=== PATIENT | male | born 1940 | race African-American/Black ===

== ENCOUNTER 2016-12-03 08:12 | Inpatient (IN) | payer OTHER ==
[2016-12-03 10:35] VITALS: BMI 29.7
--- NOTE | 2016-12-03 12:17 | HP ---
[facility] Re[facility] Assess/Revision - Admission History Admitted to Rehab from: [facility] Date of Admission to Rehab: 12/03/16 - Vital signs Vital Signs: Vital Signs Period Temp Pulse Resp BP Sys/Tao Pulse Ox Last 24 Hr 73 20 162/78 - Findings Detox History & Physical reviewed: Yes Concur with findings: Yes Comments/Additional Findings: FOR REHAB PROTOCOL
[2016-12-03] MEDS ORDERED: ACETAMINOPHEN 325 MG TABLET (FP) PO PRN (12:19)
[2016-12-03] MEDS ORDERED: MENTHOL/PHENOL 1 EACH UD MM PRN (12:19)
[2016-12-03] MEDS ORDERED: LOPERAMIDE HCL 2 MG CAPSULE PO PRN (12:19)
[2016-12-03] MEDS ORDERED: diphenhydrAMINE HCL 50 MG CAPSULE PO PRN (12:19)
[2016-12-03] MEDS ORDERED: MAG HYDROX/AL HYDROX/SIMETH 30 ML UNIT-DOSE CUP PO PRN (12:19)
[2016-12-03] MEDS ORDERED: IBUPROFEN 400 MG TABLET (FP) PO PRN (12:19)
[2016-12-03] MEDS ORDERED: P-EPHED 60MG/TRIPROLIDI 2.5MG TABLET PO PRN (12:19)
[2016-12-03] MEDS ORDERED: MAGNESIUM HYDROX 2400MG/30ML ORAL SUSPENSION 30 ML CUP PO PRN (12:19)
[2016-12-03] MEDS ORDERED: MAGNESIUM CITRATE 300 ML BOTTLE PO PRN (12:19)
[2016-12-03] MEDS ORDERED: hydrOXYzine PAMOATE 50 MG CAPSULE (FP) PO PRN (12:19)
--- NOTE | 2016-12-03 15:36 | HP ---
Psychiatrist Admission - Data Date of interview: 12/03/16 Admission source: 3N Identifying data: This is one of the several admisions 5N for inpatient Rehabilitation Center for this 76 year old single black male residing alone in his [place] apartment and supported by SSD/SSI. Medical History: Reports history of HTN,S/P craniotomy with 32 day admission to [facility] in 2010 (work related injury- pipe fell causing head trauma). Psychiatric History: Patient denies history of psychiatric treatment. Physical/Sexual Abuse/Trauma History: Patient denies history of sexual, physical and verbal abuse. Vital Signs: Vital Signs - 24 hr 12/03/16 10:30 Pulse Rate 73 Respiratory 20 Rate Blood Pressure 162/78 Allergies/Adverse Reactions: Allergies Allergy/AdvReac Type Severity Reaction Status Date / Time No Known Allergies Allergy Verified 12/03/16 10:28 Date of last physical exam: 11/30/16 Concur with the findings of this exam: Yes - Substance Abuse/Tx History Hx Alcohol Use: Yes (bacardi/rum every other day) Hx Substance Use: No Substance Use Type: None Hx Substance Use Treatment: Yes (several [facility] rehab[facility] - Admission Criteria Previous failed treatment: Yes Poor recovery environment: Yes Comorbidities: No Lacks judgement: Yes Mental Status Exam - Mental Status Exam Alert and Oriented to: Time, Place, Person Cognitive Function: Good Patient Appearance: Well Groomed Mood: Hopeful Affect: Appropriate, Mood Congruent Patient Behavior: Appropriate, Cooperative Speech Pattern: Clear, Appropriate Voice Loudness: Normal Thought Process: Intact, Goal Oriented Thought Disorder: Not Present Hallucinations: Denies Suicidal Ideation: Denies Homicidal Ideation: Denies Insight/Judgement: Fair Sleep: Well Appetite: Good Muscle strength/Tone: Normal Gait/Station: Normal Psychiatric Findings - Problem List ([place] 1, 2,3) (1) Alcohol dependence Current Visit: Yes Status: Acute - Initial Treatment Plan Initial Treatment Plan: Will monitor progress as needed.
[2016-12-03] MEDS: THIAMINE HCL 100 MG TABLET (FP) PO SCH (21:17)
[2016-12-04] MEDS: PRENATAL VITAMINS W/ FOLIC ACID TABLET (FP) PO SCH (10:07)
[2016-12-04 10:23] LABS: URINE APPEARANCE CLEAR; URINE BILIRUBIN NEGATIVE (NEGATIVE); URINE BLOOD NEGATIVE (NEGATIVE); URINE COLOR LTYELLOW; URINE GLUCOSE (UA) NEGATIVE (NEGATIVE); URINE KETONE NEGATIVE (NEGATIVE); URINE LEUK ESTERASE NEGATIVE (NEGATIVE); URINE NITRITE NEGATIVE (NEGATIVE); URINE PROTEIN NEGATIVE (NEGATIVE); URINE UROBILINOGEN NEGATIVE E.U./dl (0.2-1.0)
[2016-12-04 13:16] LABS: HIV 1 & 2 AB NEGATIVE; HIV 1 AGp24 NEGATIVE
[2016-12-04] MEDS: THIAMINE HCL 100 MG TABLET (FP) PO SCH (21:31)
[2016-12-05] MEDS: guaiFENesin/D-METHORPHAN HB 10 ML UNIT-DOSE CUPS PO PRN ×2 (06:19→21:30)
[2016-12-05] MEDS: PRENATAL VITAMINS W/ FOLIC ACID TABLET (FP) PO SCH (10:10)
[2016-12-05] MEDS: THIAMINE HCL 100 MG TABLET (FP) PO SCH (21:28)
[2016-12-06] MEDS: guaiFENesin/D-METHORPHAN HB 10 ML UNIT-DOSE CUPS PO PRN ×2 (06:03→22:49)
[2016-12-06] MEDS: PRENATAL VITAMINS W/ FOLIC ACID TABLET (FP) PO SCH (10:07)
[2016-12-06] MEDS: THIAMINE HCL 100 MG TABLET (FP) PO SCH (22:46)
[2016-12-07] MEDS: PRENATAL VITAMINS W/ FOLIC ACID TABLET (FP) PO SCH (09:23)
[2016-12-07] MEDS: THIAMINE HCL 100 MG TABLET (FP) PO SCH (21:22)
[2016-12-08] MEDS: PRENATAL VITAMINS W/ FOLIC ACID TABLET (FP) PO SCH (09:22)
[2016-12-08] MEDS: THIAMINE HCL 100 MG TABLET (FP) PO SCH (21:55)
[2016-12-08] MEDS: guaiFENesin/D-METHORPHAN HB 10 ML UNIT-DOSE CUPS PO PRN (21:57)
[2016-12-09] MEDS: PRENATAL VITAMINS W/ FOLIC ACID TABLET (FP) PO SCH (10:27)
[2016-12-09] MEDS: THIAMINE HCL 100 MG TABLET (FP) PO SCH (22:18)
[2016-12-10] MEDS: PRENATAL VITAMINS W/ FOLIC ACID TABLET (FP) PO SCH (09:25)
--- NOTE | 2016-12-10 11:42 | PN ---
[facility] Progress Note Note: hx of htn used to take atenolol 25 mgs po daily asymptomatic will start on atenolol 25 mgs po daily,bp monitoring
[2016-12-10] MEDS: ATENOLOL 25 MG TABLET (FP) PO SCH (13:01)
[2016-12-10] MEDS: THIAMINE HCL 100 MG TABLET (FP) PO SCH (21:38)
[2016-12-11] MEDS: PRENATAL VITAMINS W/ FOLIC ACID TABLET (FP) PO SCH (10:10)
[2016-12-11] MEDS: ATENOLOL 25 MG TABLET (FP) PO SCH (10:10)
[2016-12-11] MEDS: THIAMINE HCL 100 MG TABLET (FP) PO SCH (21:52)
[2016-12-12] MEDS: PRENATAL VITAMINS W/ FOLIC ACID TABLET (FP) PO SCH (10:07)
[2016-12-12] MEDS: ATENOLOL 25 MG TABLET (FP) PO SCH (10:07)
[2016-12-12] MEDS: THIAMINE HCL 100 MG TABLET (FP) PO SCH (21:47)
[2016-12-13] MEDS: ATENOLOL 25 MG TABLET (FP) PO SCH (09:50)
[2016-12-13] MEDS: PRENATAL VITAMINS W/ FOLIC ACID TABLET (FP) PO SCH (09:50)
[2016-12-13] MEDS: THIAMINE HCL 100 MG TABLET (FP) PO SCH (21:58)
[2016-12-14] MEDS: PRENATAL VITAMINS W/ FOLIC ACID TABLET (FP) PO SCH (09:56)
[2016-12-14] MEDS: ATENOLOL 25 MG TABLET (FP) PO SCH (09:56)
[2016-12-14] MEDS: guaiFENesin/D-METHORPHAN HB 10 ML UNIT-DOSE CUPS PO PRN (09:58)
[2016-12-14] MEDS: THIAMINE HCL 100 MG TABLET (FP) PO SCH (21:51)
[2016-12-15] MEDS: guaiFENesin/D-METHORPHAN HB 10 ML UNIT-DOSE CUPS PO PRN (06:12)
[2016-12-15] MEDS: ATENOLOL 25 MG TABLET (FP) PO SCH (09:41)
[2016-12-15] MEDS: PRENATAL VITAMINS W/ FOLIC ACID TABLET (FP) PO SCH (09:41)
[2016-12-15] MEDS: THIAMINE HCL 100 MG TABLET (FP) PO SCH (21:40)
[2016-12-16] MEDS: PRENATAL VITAMINS W/ FOLIC ACID TABLET (FP) PO SCH (10:01)
[2016-12-16] MEDS: ATENOLOL 25 MG TABLET (FP) PO SCH (10:01)
[2016-12-16] MEDS: THIAMINE HCL 100 MG TABLET (FP) PO SCH (21:35)
[2016-12-17] MEDS: ATENOLOL 25 MG TABLET (FP) PO SCH (10:11)
[2016-12-17] MEDS: PRENATAL VITAMINS W/ FOLIC ACID TABLET (FP) PO SCH (10:11)
[2016-12-17] MEDS: THIAMINE HCL 100 MG TABLET (FP) PO SCH (21:32)
[2016-12-18] MEDS: PRENATAL VITAMINS W/ FOLIC ACID TABLET (FP) PO SCH (10:13)
[2016-12-18] MEDS: ATENOLOL 25 MG TABLET (FP) PO SCH (10:13)
[2016-12-18] MEDS: THIAMINE HCL 100 MG TABLET (FP) PO SCH (21:59)
[2016-12-18] MEDS: LISINOPRIL 10 MG TABLET (FP) PO SCH (22:39)
[2016-12-18] MEDS: guaiFENesin/D-METHORPHAN HB 10 ML UNIT-DOSE CUPS PO PRN (22:39)
--- NOTE | 2016-12-19 08:00 | PN ---
[facility] Progress Note Note: INFORMED BY RN FOR ELEVATED B/P LAST NIGHT; CLIENT ASYMPTOMATIC PT NOTED ON AMLODIPINE 10 MG DAILY AND LISINOPRIL 10 MG BID WHILE IN DETOX ORDERED 11/29/16 WILL DC ATENOLOL AND C/W RECENT REGIMEN CONT B/P MONITORING Vital Signs - 24 hr 12/18/16 12/18/16 12/19/16 10:00 21:10 00:30 Temperature 97.9 F Pulse Rate 56 L 50 L Respiratory 20 18 Rate Blood Pressure 159/82 175/73 12/19/16 12/19/16 03:30 07:05 Temperature 98.1 F Pulse Rate 54 L Respiratory 18 20 Rate Blood Pressure 129/65
[2016-12-19] MEDS: amLODIPine BESYLATE 10 MG TABLET (FP) PO SCH (10:18)
[2016-12-19] MEDS: LISINOPRIL 10 MG TABLET (FP) PO SCH ×2 (10:18→22:04)
[2016-12-19] MEDS: PRENATAL VITAMINS W/ FOLIC ACID TABLET (FP) PO SCH (10:18)
[2016-12-19] MEDS: THIAMINE HCL 100 MG TABLET (FP) PO SCH (22:04)
[2016-12-20 07:16] VITALS: TEMP 97
[2016-12-20 07:17] VITALS: BP 161/81; PULSE 60
--- NOTE | 2016-12-20 10:12 | PN ---
Psychiatric Progress Note Vital Signs: Vital Signs Period Temp Pulse Resp BP Sys/Tao Pulse Ox Last 24 Hr 97 F 60-63 18-20 161-166/78-81 Date of Session: 12/20/16 Chief Complaint:: discharge visit HPI: Patient has addressed alcohol dependence. ROS: HTN, has been managed medically. Current Medications: Active Medications Generic Name Dose Route Start Last Admin Trade Name Freq PRN Reason Stop Dose Admin Acetaminophen 650 mg 12/03/16 12:19 Tylenol - PO Q4H PRN FEVER OR PAIN Al Hydroxide/Mg Hydroxide 30 ml 12/03/16 12:19 Mylanta Oral Suspension - PO Q6H PRN DYSPEPSIA Amlodipine Besylate 10 mg 12/19/16 10:00 12/19/16 10:18 Norvasc - PO 10 mg DAILY FELIX Administration Diphenhydramine HCl 50 mg 12/03/16 12:19 Benadryl - PO HSMR1 PRN FOR ITCHING Eucalyptus/Menthol/Phenol/Sorbitol 1 each 12/03/16 12:19 Cepastat Lozenge - MM Q4H PRN SORE THROAT Guaifenesin 10 ml 12/03/16 12:19 12/18/16 22:39 Robitussin Dm - PO 10 ml Q6H PRN Administration COUGH Hydroxyzine Pamoate 50 mg 12/03/16 12:19 Vistaril - PO Q4H PRN AGITATION Ibuprofen 400 mg 12/03/16 12:19 Motrin - PO Q6H PRN PAIN Lisinopril 10 mg 12/18/16 22:30 12/19/16 22:04 Prinivil PO 10 mg BID FELIX Administration Loperamide HCl 4 mg 12/03/16 12:19 Imodium - PO Q6H PRN DIARRHEA Magnesium Hydroxide 30 ml 12/03/16 12:19 Milk Of Magnesia - PO DAILY PRN CONSTIPATION Multivit/Folic Acid/Iron 1 tab 12/04/16 10:00 12/19/16 10:18 Vitamins (Sjr) - PO 1 tab DAILY FELIX Administration Pseudoephedrine/Triprolidine 1 combo 12/03/16 12:19 Actifed - PO TID PRN NASAL CONGESTION Thiamine HCl 100 mg 12/03/16 22:00 12/19/16 22:04 Vitamin B1 - PO 100 mg HS FELIX Administration Current Side Effect: No Lab tests ordered: No Lab tests reviewed: Yes Provider note:: Patient has completed today his treatment and met his identified goals, will continue to address his issues at [facility], patient gained insights into his addiction and motivated to continue maintain abstinence. Utilization of supports and imrpoving coping skills discussed with the patient. Patient is stable for discharge today. Total face to face time:: 25 Mental Status Exam - Mental Status Exam Alert and Oriented to: Time, Place, Person Cognitive Function: Good Patient Appearance: Well Groomed Mood: Hopeful Affect: Appropriate, Mood Congruent Patient Behavior: Appropriate, Cooperative Speech Pattern: Appropriate Voice Loudness: Normal Thought Process: Intact, Goal Oriented Thought Disorder: Not Present Hallucinations: Denies Suicidal Ideation: Denies Homicidal Ideation: Denies Insight/Judgement: Fair Sleep: Well Appetite: Good Muscle strength/Tone: Normal Gait/Station: Normal Psychiatric Treatment Plan - Problem List (1) Alcohol dependence Current Visit: Yes
[2016-12-20] MEDS: LISINOPRIL 10 MG TABLET (FP) PO SCH (10:34)
[2016-12-20] MEDS: amLODIPine BESYLATE 10 MG TABLET (FP) PO SCH (10:34)
[2016-12-20] MEDS: PRENATAL VITAMINS W/ FOLIC ACID TABLET (FP) PO SCH (10:34)
== END 2016-12-20 11:10 | disposition home or self-care (01) | DRG 895 ==
LOC: YASAS 08:12 → Y5N 12:21
PROVIDERS: ADMIT Psychiatry & Neurology Psychiatry; ATTEND Psychiatry & Neurology Psychiatry
PROC: HZ42ZZZ Group Counseling for Substance Abuse Treatment, Cognitive-Behavioral (ICD-10-PCS; principal; 2016-12-03)
DX: F10.20 Alcohol dependence, uncomplicated (principal); I10 Essential (primary) hypertension
CPT/HCPCS: 36415; 81003; 87389

== ENCOUNTER 2017-09-03 15:23 | Inpatient (IN) | payer OTHER ==
[2017-09-03 15:31] VITALS: BMI 29.9
[2017-09-03] MEDS ORDERED: MAG HYDROX/AL HYDROX/SIMETH 30 ML UNIT-DOSE CUP PO PRN (19:17)
[2017-09-03] MEDS ORDERED: MAGNESIUM HYDROX 2400MG/30ML ORAL SUSPENSION 30 ML CUP PO PRN (19:17)
[2017-09-03] MEDS ORDERED: MENTHOL/PHENOL 1 EACH UD MM PRN (19:17)
[2017-09-03] MEDS ORDERED: IBUPROFEN 400 MG TABLET (FP) PO PRN (19:17)
[2017-09-03] MEDS ORDERED: hydrOXYzine PAMOATE 50 MG CAPSULE (FP) PO PRN (19:17)
[2017-09-03] MEDS ORDERED: MAGNESIUM CITRATE 300 ML BOTTLE PO PRN (19:17)
[2017-09-03] MEDS ORDERED: chlordiazePOXIDE HCL 25 MG CAPSULE PO PRN (19:17)
[2017-09-03] MEDS ORDERED: LOPERAMIDE HCL 2 MG CAPSULE PO PRN (19:17)
[2017-09-03] MEDS ORDERED: P-EPHED 60MG/TRIPROLIDI 2.5MG TABLET PO PRN (19:17)
[2017-09-03] MEDS ORDERED: ACETAMINOPHEN 325 MG TABLET (FP) PO PRN (19:17)
--- NOTE | 2017-09-03 19:25 | HP ---
CIWA Score - CIWA Score Nausea/Vomitin Muscle Tremors: 3 Anxiety: 4-Mod. Anxious/Guarded Agitation: 3 Paroxysmal Sweats: 3 Orientation: 0-Oriented Tacttile Disturbances: 0-None Auditory Disturbances: 0-None Visual Disturbances: 0-None Headache: 0-None Present CIWA-Ar Total Score: 15 Admission ROS [facility] - HPI Chief Complaint: Withdrawal sx. Allergies/Adverse Reactions: Allergies Allergy/AdvReac Type Severity Reaction Status Date / Time No Known Allergies Allergy Verified 12/03/16 10:28 History of Present Illness: 77 y/o man with a long hx. of alcoholism is admitted for detox. Pt. has been in previous detox,denies significant sobriety. Exam Limitations: No Limitations - Ebola screening Have you traveled outside of the country in the last 21 days: No Have you had contact with anyone from an Ebola affected area: No Have you been sick,other than usual withdrawal symptoms: No Do you have a fever: No - Review of Systems Constitutional: Diaphoresis EENT: reports: No Symptoms Reported Respiratory: reports: No Symptoms reported Cardiac: reports: No Symptoms Reported GI: reports: Nausea, Abdominal cramping : reports: Frequency Musculoskeletal: reports: No Symptoms Reported Integumentary: reports: Sweating Neuro: reports: Tremors Endocrine: reports: No Symptoms Reported Hematology: reports: No Symptoms Reported Psychiatric: reports: No Sypmtoms Reported Other Systems: Reviewed and Negative Patient History - Patient Medical History Hx Anemia: No Hx Asthma: No Hx Chronic Obstructive Pulmonary Disease (COPD): No Hx Cancer: No Hx Cardiac Disorders: No Hx Congestive Heart Failure: No Hx Hypertension: Yes Hx Hypercholesterolemia: No Hx Pacemaker: No HX Cerebrovascular Accident: No Hx Seizures: No Hx Dementia: No Hx Diabetes: No Hx Gastrointestinal Disorders: No Hx Liver Disease: No Hx Genitourinary Disorders: Yes (Enlarged prostate) Hx Sexually Transmitted Disorders: No Hx Renal Disease (ESRD): No Hx Thyroid Disease: No Hx Human Immunodeficiency Virus (HIV): No Hx Hepatitis C: No Hx Depression: No Hx Suicide Attempt: No Hx Bipolar Disorder: No Hx Schizophrenia: No - Patient Surgical History Past Surgical History: Yes Hx Neurologic Surgery: Yes (S/P HEAD TRAUMA ADMIITED TO [place] X 32D ) Hx Cataract Extraction: No Hx Cardiac Surgery: No Hx Lung Surgery: No Hx Breast Surgery: No Hx Breast Biopsy: No Hx Abdominal Surgery: No Hx Appendectomy: No Hx Cholecystectomy: No Hx Genitourinary Surgery: No Hx Orthopedic Surgery: No Other Surgical History: ,tonsilectomy 25yrs,SURGERY OF TEAR DUCT RIGHT 40 YEARS AGO Anesthesia Reaction: No - PPD History Previous Implant?: Yes Documented Results: Positive w/o proof Implanted On Prior [facility] Admission?: No PPD to be Administered?: No - Smoking Cessation Smoking history: Never smoked Have you smoked in the past 12 months: No Aproximately how many cigarettes per day: 0 Cigars Per Day: 0 Hx Chewing Tobacco Use: No Initiated information on smoking cessation: No - Substance & Tx. History Hx Alcohol Use: Yes Hx Substance Use: No Substance Use Type: Alcohol Hx Substance Use Treatment: Yes (Detox) - Substances Abused Alcohol Route: Oral Frequency: Daily Amount used: Beer 1(6pack) Age of first use: 19 Date of Last Use: 09/03/17 Family Disease History - Family Disease History Family Disease History: Diabetes: Mother (), Other: Father (ALCOHOL, ) Admission Physical Exam [facility] - Vital Signs Vital Signs: Vital Signs - 24 hr 09/03/17 15:30 Temperature 95.9 F L Pulse Rate 78 Respiratory 18 Rate Blood Pressure 160/93 - Physical General Appearance: Yes: Alcohol on Breath, Tremorous, Irritable, Sweating, Anxious HEENTM: Yes: Within Normal Limits Respiratory: Yes: Chest Non-Tender, Lungs Clear, Normal Breath Sounds Neck: Yes: Supple Breast: Yes: Breast Exam Deferred Cardiology: Yes: Regular Rhythm, Regular Rate, S1, S2 Abdominal: Yes: Normal Bowel Sounds, Non Tender, Soft Genitourinary: Yes: Within Normal Limits Back: Yes: Within Normal Limits Musculoskeletal: Yes: Within Normal Limits Extremities: Yes: Tremors Neurological: Yes: Fully Oriented, Alert Integumentary: Yes: Diaphoresis Lymphatic: Yes: Within Normal Limits - Diagnostic (1) Alcohol dependence with uncomplicated withdrawal Current Visit: Yes Status: Acute (2) Positive PPD Current Visit: Yes Status: Acute (3) Essential hypertension Current Visit: Yes Status: Chronic Cleared for Admission [facility] - Detox or Rehab [facility] Level of Care: Medically Managed Detox Regimen/Protocol: Librium [facility] Breath Alcohol Content Breath Alcohol Content: 0.025 Urine Drug Screen - Results Drug Screen Negative: Yes
[2017-09-03] MEDS ORDERED: chlordiazePOXIDE HCL 25 MG CAPSULE PO ONE (21:00)
[2017-09-03] MEDS: LISINOPRIL 10 MG TABLET (FP) PO SCH (23:17)
[2017-09-03] MEDS: THIAMINE HCL 100 MG TABLET (FP) PO SCH (23:17)
[2017-09-03] MEDS: chlordiazePOXIDE HCL 25 MG CAPSULE PO SCH (23:17)
[2017-09-03] MEDS: amLODIPine BESYLATE 10 MG TABLET (FP) PO SCH (23:18)
[2017-09-03] MEDS: METOPROLOL TARTRATE 25 MG TABLET (FP) PO SCH (23:18)
[2017-09-04] MEDS: chlordiazePOXIDE HCL 25 MG CAPSULE PO SCH ×4 (05:58→22:49)
[2017-09-04 10:07] LABS: ALBUMIN 3.2 g/dl (3.4-5.0); ANION GAP 9 (8-16); CALCIUM 8.6 mg/dL (8.5-10.1); CO2 27 mmol/L (21-32); GLUCOSE,RANDOM 91 mg/dL (74-106)
[2017-09-04 10:10] LABS: ALK PHOS 75 U/L (45-117); BILIRUBIN,TOTAL 0.5 mg/dL (0.2-1.0); CREATININE 1.4 mg/dL (0.7-1.3); SGOT/AST 21 U/L (15-37); SGPT/ALT 19 U/L (12-78); TOT PROT 6.6 g/dl (6.4-8.2)
[2017-09-04 10:14] LABS: MCH 28.6 pg (25.7-33.7); MCHC 33.3 g/dl (32.0-35.9); MEAN CELL VOLUME 86.1 fl (80-96); MEAN PLT VOLUME 8.4 fl (7.5-11.1); PLATELET COUNT 170 K/MM3 (134-434); RDW 13.9 % (11.9-15.9); WHITE BLOOD COUNT 6.8 K/mm3 (4.0-10.0)
[2017-09-04] MEDS: METOPROLOL TARTRATE 25 MG TABLET (FP) PO SCH ×2 (10:52→22:49)
[2017-09-04] MEDS: PRENATAL VITAMINS W/ FOLIC ACID TABLET (FP) PO SCH (10:52)
[2017-09-04] MEDS: LISINOPRIL 10 MG TABLET (FP) PO SCH ×2 (10:54→22:49)
[2017-09-04] MEDS: amLODIPine BESYLATE 10 MG TABLET (FP) PO SCH (10:55)
--- NOTE | 2017-09-04 13:09 | PN ---
[facility] CIWA - CIWA Score Nausea/Vomitin-Mild Nausea/No Vomiting Muscle Tremors: 3 Anxiety: 3 Agitation: 3 Paroxysmal Sweats: 1-Minimal Palms Moist Orientation: 0-Oriented Tacttile Disturbances: 0-None Auditory Disturbances: 0-None Visual Disturbances: 0-None Headache: 0-None Present CIWA-Ar Total Score: 11 S Progress Note (SOAP) Subjective: tremor anxiety agitation sweat Objective: 09/04/17 13:08 Vital Signs Temperature 95.5 F L 09/04/17 10:31 Pulse Rate 66 09/04/17 10:31 Respiratory Rate 18 09/04/17 10:31 Blood Pressure 136/55 09/04/17 10:31 O2 Sat by Pulse Oximetry (%) Laboratory Last Values WBC 6.8 K/mm3 (4.0-10.0) 09/04/17 08:00 RBC 4.41 M/mm3 (4.00-5.60) 09/04/17 08:00 Hgb 12.6 GM/dL (11.7-16.9) 09/04/17 08:00 Hct 38.0 % (35.4-49) 09/04/17 08:00 MCV 86.1 fl (80-96) 09/04/17 08:00 MCH 28.6 pg (25.7-33.7) 09/04/17 08:00 MCHC 33.3 g/dl (32.0-35.9) 09/04/17 08:00 RDW 13.9 % (11.9-15.9) 09/04/17 08:00 Plt Count 170 K/MM3 (134-434) 09/04/17 08:00 MPV 8.4 fl (7.5-11.1) 09/04/17 08:00 Sodium 141 mmol/L (136-145) 09/04/17 08:00 Potassium 4.0 mmol/L (3.5-5.1) 09/04/17 08:00 Chloride 105 mmol/L (98-107) 09/04/17 08:00 Carbon Dioxide 27 mmol/L (21-32) 09/04/17 08:00 Anion Gap 9 (8-16) 09/04/17 08:00 BUN 19 mg/dL (7-18) H 09/04/17 08:00 Creatinine 1.4 mg/dL (0.7-1.3) H 09/04/17 08:00 Creat Clearance w eGFR 49.27 (>60) 09/04/17 08:00 Random Glucose 91 mg/dL (74-106) 09/04/17 08:00 Calcium 8.6 mg/dL (8.5-10.1) 09/04/17 08:00 Total Bilirubin 0.5 mg/dL (0.2-1.0) D 09/04/17 08:00 AST 21 U/L (15-37) D 09/04/17 08:00 ALT 19 U/L (12-78) D 09/04/17 08:00 Alkaline Phosphatase 75 U/L (45-117) 09/04/17 08:00 Total Protein 6.6 g/dl (6.4-8.2) 09/04/17 08:00 Albumin 3.2 g/dl (3.4-5.0) L 09/04/17 08:00 RPR Titer Nonreactive (NONREACTIVE) 09/04/17 08:00 lab noted Assessment: 09/04/17 13:09 withdrawal sx Plan: continue detox
[2017-09-04] MEDS: guaiFENesin/D-METHORPHAN HB 10 ML UNIT-DOSE CUPS PO PRN (18:31)
[2017-09-04] MEDS: THIAMINE HCL 100 MG TABLET (FP) PO SCH (22:49)
[2017-09-05] MEDS: guaiFENesin/D-METHORPHAN HB 10 ML UNIT-DOSE CUPS PO PRN ×3 (01:18→17:34)
[2017-09-05] MEDS: chlordiazePOXIDE HCL 25 MG CAPSULE PO SCH ×3 (05:33→17:33)
[2017-09-05] MEDS: amLODIPine BESYLATE 10 MG TABLET (FP) PO SCH (10:43)
[2017-09-05] MEDS: PRENATAL VITAMINS W/ FOLIC ACID TABLET (FP) PO SCH (10:43)
[2017-09-05] MEDS: METOPROLOL TARTRATE 25 MG TABLET (FP) PO SCH ×2 (10:43→22:19)
[2017-09-05] MEDS: LISINOPRIL 10 MG TABLET (FP) PO SCH ×2 (10:43→22:19)
--- NOTE | 2017-09-05 11:50 | PN ---
S CIWA - CIWA Score Nausea/Vomitin-No Nausea/No Vomiting Muscle Tremors: 4-Moderate,w/Arms Extend Anxiety: 3 Agitation: 3 Paroxysmal Sweats: 3 Orientation: 0-Oriented Tacttile Disturbances: 0-None Auditory Disturbances: 0-None Visual Disturbances: 0-None Headache: 0-None Present CIWA-Ar Total Score: 13 BHS Progress Note (SOAP) Subjective: cough sweats shakes interrupted sleep Objective: 09/05/17 11:49 Vital Signs Temperature 97 F L 09/05/17 10:00 Pulse Rate 112 H 09/05/17 10:00 Respiratory Rate 18 09/05/17 10:00 Blood Pressure 161/80 09/05/17 10:00 O2 Sat by Pulse Oximetry (%) Laboratory Tests 09/04/17 09/04/17 09/04/17 08:00 08:00 08:00 WBC 6.8 RBC 4.41 Hgb 12.6 Hct 38.0 MCV 86.1 MCH 28.6 MCHC 33.3 RDW 13.9 Plt Count 170 MPV 8.4 Sodium 141 Potassium 4.0 Chloride 105 Carbon Dioxide 27 Anion Gap 9 BUN 19 H Creatinine 1.4 H Creat Clearance w eGFR 49.27 Random Glucose 91 Calcium 8.6 Total Bilirubin 0.5 D AST 21 D ALT 19 D Alkaline Phosphatase 75 Total Protein 6.6 Albumin 3.2 L RPR Titer Nonreactive increase fluids aaox3 ambulating no acute distress Assessment: 09/05/17 11:50 withdrawal sx Plan: continue detox increase fluids robutussin for cough
--- NOTE | 2017-09-05 15:15 | EKG ---
Test Reason : Blood Pressure : / mmHG Vent. Rate : 065 BPM Atrial Rate : 065 BPM P-R Int : 142 ms QRS Dur : 086 ms QT Int : 416 ms P-R-T Axes : 072 037 052 degrees QTc Int : 432 ms NORMAL SINUS RHYTHM VOLTAGE CRITERIA FOR LEFT VENTRICULAR HYPERTROPHY EARLY REPOLARIZATION ABNORMAL ECG WHEN COMPARED WITH ECG OF 26-NOV-2016 16:47, NO SIGNIFICANT CHANGE WAS FOUND Confirmed by PENNY GALO MD ([id number]) on 09/05/2017 3:15:15 PM Referred By: Confirmed By:PENNY GALO MD
[2017-09-05] MEDS: chlordiazePOXIDE 5 MG CAPSULE PO SCH (22:18)
[2017-09-05] MEDS: THIAMINE HCL 100 MG TABLET (FP) PO SCH (22:19)
[2017-09-05 23:14] LABS: URINE APPEARANCE CLEAR; URINE BILIRUBIN NEGATIVE (NEGATIVE); URINE BLOOD NEGATIVE (NEGATIVE); URINE COLOR LTYELLOW; URINE GLUCOSE (UA) NEGATIVE (NEGATIVE); URINE KETONE NEGATIVE (NEGATIVE); URINE LEUK ESTERASE NEGATIVE (NEGATIVE); URINE NITRITE NEGATIVE (NEGATIVE); URINE PROTEIN NEGATIVE (NEGATIVE); URINE UROBILINOGEN NEGATIVE mg/dL (0.2-1.0)
[2017-09-06] MEDS: chlordiazePOXIDE 5 MG CAPSULE PO SCH ×3 (06:18→17:49)
[2017-09-06] MEDS: guaiFENesin/D-METHORPHAN HB 10 ML UNIT-DOSE CUPS PO PRN ×2 (06:20→17:54)
[2017-09-06 09:25] LABS: URINE LEUK ESTERASE NEGATIVE (NEGATIVE)
[2017-09-06] MEDS: PRENATAL VITAMINS W/ FOLIC ACID TABLET (FP) PO SCH (10:41)
[2017-09-06] MEDS: amLODIPine BESYLATE 10 MG TABLET (FP) PO SCH (10:41)
[2017-09-06] MEDS: METOPROLOL TARTRATE 25 MG TABLET (FP) PO SCH ×2 (10:41→22:50)
[2017-09-06] MEDS: LISINOPRIL 10 MG TABLET (FP) PO SCH ×2 (10:42→22:50)
--- NOTE | 2017-09-06 11:48 | PN ---
[facility]HS Progress Note (SOAP) Subjective: sweats Objective: 09/06/17 11:46 Vital Signs Temperature 97.9 F 09/06/17 09:55 Pulse Rate 110 H 09/06/17 09:55 Respiratory Rate 18 09/06/17 09:55 Blood Pressure 148/66 09/06/17 09:55 O2 Sat by Pulse Oximetry (%) aaox3 ambulating no acute distress u/a pending Assessment: 09/06/17 11:47 mild withdrawal sx Plan: continue detox increase fluids u/a result pending d/c in am
[2017-09-06 12:36] LABS: URINE APPEARANCE CLEAR; URINE BILIRUBIN NEGATIVE (NEGATIVE); URINE BLOOD NEGATIVE (NEGATIVE); URINE COLOR LTYELLOW; URINE GLUCOSE (UA) NEGATIVE (NEGATIVE); URINE KETONE NEGATIVE (NEGATIVE); URINE LEUK ESTERASE NEGATIVE (NEGATIVE); URINE NITRITE NEGATIVE (NEGATIVE); URINE PROTEIN NEGATIVE (NEGATIVE); URINE UROBILINOGEN NEGATIVE mg/dL (0.2-1.0)
[2017-09-06 18:42] LABS: URINE LEUK ESTERASE NEGATIVE (NEGATIVE)
[2017-09-06] MEDS: chlordiazePOXIDE HCL 10 MG CAPSULE PO SCH (22:50)
[2017-09-06] MEDS: THIAMINE HCL 100 MG TABLET (FP) PO SCH (22:50)
[2017-09-07] MEDS: chlordiazePOXIDE HCL 10 MG CAPSULE PO SCH (06:41)
[2017-09-07 07:05] VITALS: BP 126/69; PULSE 61; TEMP 96.3
--- NOTE | 2017-09-07 08:34 | DS ---
[facility] Detox Discharge Summary Admission Date: 09/03/17 Discharge Date: 09/07/17 - History Present History: Alcohol Dependence - Physical Exam Results Vital Signs: Vital Signs Temperature 96.3 F L 09/07/17 07:04 Pulse Rate 61 09/07/17 07:04 Respiratory Rate 20 09/07/17 07:04 Blood Pressure 126/69 09/07/17 07:04 O2 Sat by Pulse Oximetry (%) - Treatment Hospital Course: Detox Protocol Followed, Detoxed Safely, Responded well, Discharged Condition Good - Medication Discharge Medications: Ambulatory Orders Atenolol [Tenormin -] 50 mg PO DAILY 12/03/16 Amlodipine Besylate [Norvasc -] 10 mg PO DAILY #30 tablet 12/20/16 Atenolol [Tenormin -] 25 mg PO DAILY #30 tablet 12/20/16 Lisinopril [Prinivil] 10 mg PO BID #60 tablet 12/20/16 - Diagnosis (1) Positive PPD Current Visit: Yes Status: Chronic (2) Alcohol dependence with uncomplicated withdrawal Current Visit: Yes Status: Chronic (3) Essential hypertension Current Visit: Yes Status: Chronic - AMA Did Patient Leave Against Medical Advice: No
[2017-09-07] MEDS: amLODIPine BESYLATE 10 MG TABLET (FP) PO SCH (10:18)
[2017-09-07] MEDS: METOPROLOL TARTRATE 25 MG TABLET (FP) PO SCH (10:18)
[2017-09-07] MEDS: LISINOPRIL 10 MG TABLET (FP) PO SCH (10:18)
[2017-09-07] MEDS: PRENATAL VITAMINS W/ FOLIC ACID TABLET (FP) PO SCH (10:18)
== END 2017-09-07 10:55 | disposition home or self-care (01) | DRG 897 ==
LOC: YASAS 15:23 → Y6N 18:46
PROVIDERS: ADMIT Internal Medicine; ATTEND Internal Medicine
PROC: HZ2ZZZZ Detoxification Services for Substance Abuse Treatment (ICD-10-PCS; principal; 2017-09-03)
DX: F10.230 Alcohol dependence with withdrawal, uncomplicated (principal); I10 Essential (primary) hypertension; N40.0 Benign prostatic hyperplasia without lower urinary tract symptoms; R76.11 Nonspecific reaction to tuberculin skin test without active tuberculosis
CPT/HCPCS: 36415; 80053; 81003; 85027; 86593; 93005; 93010

== ENCOUNTER 2018-02-28 16:39 | Inpatient (IN) | payer OTHER ==
[2018-02-28 20:35] VITALS: BMI 29.0
--- NOTE | 2018-02-28 21:37 | HP ---
CIWA Score - CIWA Score Nausea/Vomitin-No Nausea/No Vomiting Muscle Tremors: 1-None Visible, but [place] Anxiety: 3 Agitation: 4-Moderately Restless Paroxysmal Sweats: 3 Orientation: 1-Uncertain about Date Tacttile Disturbances: 0-None Auditory Disturbances: 0-None Visual Disturbances: 0-None Headache: 2-Mild CIWA-Ar Total Score: 14 Admission ROS [facility] - HPI Chief Complaint: C/O WITHDRAWAL SX'S. SEEKING DETOX FOR ALCOHOLISM Allergies/Adverse Reactions: Allergies Allergy/AdvReac Type Severity Reaction Status Date / Time No Known Allergies Allergy Verified 12/03/16 10:28 History of Present Illness: 77 Y.O. MALE WITH LONG HX/O ALCOHOLISM HERE FOR DETOX. CLIENT IS KNOWN TO THIS PROGRAM. LAST HERE 08/2017. REFERRED BY OUTREACH. REPORTS LONGEST CLEAN TIME 6 MONTHS. DENIES HX/O SEIZURE, SI/HI AND A/V HALLUCINATIONS. DOES REPORT BLACKING OUT ONCE IN THE PAST. PMHX: HTN, PSYCH: DENIES Exam Limitations: No Limitations - Ebola screening Have you traveled outside of the country in the last 21 days: No (N) Have you had contact with anyone from an Ebola affected area: No Have you been sick,other than usual withdrawal symptoms: No Do you have a fever: No - Review of Systems Constitutional: Chills, Night Sweats, Changes in sleep EENT: reports: Dental Problems (MISSING TEETH), Other Respiratory: reports: No Symptoms reported Cardiac: reports: No Symptoms Reported GI: reports: No Symptoms Reported : reports: Frequency Musculoskeletal: reports: No Symptoms Reported Integumentary: reports: No Symptoms Reported Neuro: reports: No Symptoms reported Endocrine: reports: No Symptoms Reported Hematology: reports: No Symptoms Reported Psychiatric: reports: Anxious Other Systems: Reviewed and Negative Patient History - Patient Medical History Hx Anemia: No Hx Asthma: No Hx Chronic Obstructive Pulmonary Disease (COPD): No Hx Cancer: No Hx Cardiac Disorders: No Hx Congestive Heart Failure: No Hx Hypertension: Yes Hx Hypercholesterolemia: No Hx Pacemaker: No HX Cerebrovascular Accident: No Hx Seizures: No Hx Dementia: No Hx Diabetes: No Hx Gastrointestinal Disorders: No Hx Liver Disease: No Hx Genitourinary Disorders: No Hx Sexually Transmitted Disorders: No Hx Renal Disease (ESRD): No Hx Thyroid Disease: No Hx Human Immunodeficiency Virus (HIV): No Hx Hepatitis C: No Hx Depression: No Hx Suicide Attempt: No Hx Bipolar Disorder: No Hx Schizophrenia: No Other Medical History: DENIES - Patient Surgical History Past Surgical History: Yes Hx Neurologic Surgery: Yes (S/P HEAD TRAUMA ADMIITED TO [place] X 32D ) Hx Cataract Extraction: No Hx Cardiac Surgery: No Hx Lung Surgery: No Hx Breast Surgery: No Hx Breast Biopsy: No Hx Abdominal Surgery: No Hx Appendectomy: No Hx Cholecystectomy: No Hx Genitourinary Surgery: No Hx Orthopedic Surgery: No Other Surgical History: ,tonsilectomy 25yrs,SURGERY OF TEAR DUCT RIGHT 40 YEARS AGO Anesthesia Reaction: No - PPD History Previous Implant?: Yes Documented Results: Positive w/o proof Implanted On Prior [facility] Admission?: No PPD to be Administered?: No - Smoking Cessation Smoking history: Never smoked Have you smoked in the past 12 months: No Aproximately how many cigarettes per day: 0 Cigars Per Day: 0 Hx Chewing Tobacco Use: No Initiated information on smoking cessation: No - Substance & Tx. History Hx Alcohol Use: Yes Hx Substance Use: Yes Substance Use Type: Alcohol Hx Substance Use Treatment: Yes ([facility]) - Substances Abused LIQUOR/BEER Route: Oral Frequency: Daily Amount used: 1QUART/ 6-22OZ Age of first use: 19 Date of Last Use: 02/28/18 Family Disease History - Family Disease History Family Disease History: Diabetes: Mother (), Other: Father (ALCOHOL, ) Admission Physical Exam BHS - Vital Signs Vital Signs: Vital Signs - 24 hr 02/28/18 20:32 Temperature 98.6 F Pulse Rate 65 Respiratory 20 Rate Blood Pressure 153/83 - Physical General Appearance: Yes: Appropriately Dressed, Tremorous, Anxious HEENTM: Yes: EOMI, Normocephalic, Normal Voice, MIRIAN, Pharynx Normal, Other ( MISSING TEETH) Respiratory: Yes: Chest Non-Tender, Lungs Clear, Normal Breath Sounds, No Respiratory Distress, No Accessory Muscle Use Neck: Yes: No masses,lesions,Nodules, Supple, Trachea in good position Breast: Yes: Breast Exam Deferred Cardiology: Yes: Regular Rhythm, Regular Rate, S1, S2 Abdominal: Yes: Normal Bowel Sounds, Non Tender, Soft, Protuberent Genitourinary: Yes: Within Normal Limits Back: Yes: Normal Inspection Musculoskeletal: Yes: full range of Motion, Gait Steady Extremities: Yes: Normal Range of Motion, Non-Tender, Tremors Neurological: Yes: Fully Oriented, Alert, Motor Strength 5/5 Integumentary: Yes: Warm, Moist Lymphatic: Yes: Within Normal Limits - Diagnostic (1) Alcohol dependence with uncomplicated withdrawal Current Visit: Yes Status: Acute (2) Essential hypertension Current Visit: Yes Status: Chronic (3) Positive PPD Current Visit: Yes Status: Chronic Cleared for Admission [facility] - Detox or Rehab [facility] Level of Care: Medically Managed Detox Regimen/Protocol: [place] Claeared for Rehab Admission: No [facility] Breath Alcohol Content Breath Alcohol Content: 0.115 Urine Drug Screen - Results Drug Screen Negative: Yes
[2018-02-28] MEDS ORDERED: P-EPHED 60MG/TRIPROLIDI 2.5MG TABLET PO PRN (21:50)
[2018-02-28] MEDS ORDERED: MAG HYDROX/AL HYDROX/SIMETH 30 ML UNIT-DOSE CUP PO PRN (21:50)
[2018-02-28] MEDS ORDERED: MENTHOL/PHENOL 1 EACH UD MM PRN (21:50)
[2018-02-28] MEDS ORDERED: LOPERAMIDE HCL 2 MG CAPSULE PO PRN (21:50)
[2018-02-28] MEDS ORDERED: hydrOXYzine PAMOATE 50 MG CAPSULE (FP) PO PRN (21:50)
[2018-02-28] MEDS ORDERED: ACETAMINOPHEN 325 MG TABLET (FP) PO PRN (21:50)
[2018-02-28] MEDS ORDERED: chlordiazePOXIDE HCL 25 MG CAPSULE PO PRN (21:50)
[2018-02-28] MEDS ORDERED: guaiFENesin/D-METHORPHAN HB 10 ML UNIT-DOSE CUPS PO PRN (21:50)
[2018-02-28] MEDS ORDERED: IBUPROFEN 400 MG TABLET (FP) PO PRN (21:50)
[2018-02-28] MEDS ORDERED: MAGNESIUM HYDROX 2400MG/30ML ORAL SUSPENSION 30 ML CUP PO PRN (21:50)
[2018-02-28] MEDS ORDERED: MAGNESIUM CITRATE 300 ML BOTTLE PO PRN (21:50)
[2018-02-28] MEDS ORDERED: MELATONIN 5 MG TABLETS PO PRN (22:00)
[2018-03-01] MEDS: chlordiazePOXIDE HCL 25 MG CAPSULE PO SCH ×5 (01:10→22:04)
[2018-03-01] MEDS: THIAMINE HCL 100 MG TABLET (FP) PO SCH ×2 (01:11→22:04)
[2018-03-01] MEDS ORDERED: chlordiazePOXIDE HCL 25 MG CAPSULE PO ONE (02:06)
[2018-03-01] MEDS: PRENATAL VITAMINS W/ FOLIC ACID TABLET (FP) PO SCH (10:09)
[2018-03-01] MEDS: amLODIPine BESYLATE 10 MG TABLET (FP) PO SCH (10:09)
[2018-03-01] MEDS: METOPROLOL TARTRATE 25 MG TABLET (FP) PO SCH ×2 (10:09→22:04)
[2018-03-01] MEDS: LISINOPRIL 10 MG TABLET (FP) PO SCH ×2 (10:09→22:04)
--- NOTE | 2018-03-01 11:06 | PN ---
S CIWA - CIWA Score Nausea/Vomitin-No Nausea/No Vomiting Muscle Tremors: 4-Moderate,w/Arms Extend Anxiety: 4-Mod. Anxious/Guarded Agitation: 4-Moderately Restless Paroxysmal Sweats: 1-Minimal Palms Moist Orientation: 0-Oriented Tacttile Disturbances: 0-None Auditory Disturbances: 0-None Visual Disturbances: 0-None Headache: 0-None Present CIWA-Ar Total Score: 13 B[facility] Progress Note (SOAP) Subjective: C/O SLIGHT ANXIETY,TREMORS,SWEATS. SEEN EATING BREAKFAST BY BEDSIDE. GOOD APPETITE. Objective: 03/01/18 11:04 Vital Signs 03/01/18 03/01/18 03/01/18 03:30 06:05 06:28 Temperature 96.1 F L Pulse Rate 62 Respiratory 18 16 18 Rate Blood Pressure 153/79 03/01/18 09:18 Temperature 96.4 F L Pulse Rate 69 Respiratory 18 Rate Blood Pressure 154/84 LAB PENDING-- WERE UNABLE TO BE OBTAINED BY [employer]EL[employer]. DRAWING TO BE REPEATED. Assessment: 03/01/18 11:06 WITHDRAWAL SX Plan: CONTINUE DETOX INCREASE PO FLUIDS
--- NOTE | 2018-03-01 11:53 | EKG ---
Test Reason : Blood Pressure : / mmHG Vent. Rate : 061 BPM Atrial Rate : 061 BPM P-R Int : 144 ms QRS Dur : 096 ms QT Int : 438 ms P-R-T Axes : 071 036 033 degrees QTc Int : 440 ms NORMAL SINUS RHYTHM MODERATE VOLTAGE CRITERIA FOR LVH, MAY BE NORMAL VARIANT EARLY REPOLARIZATION BORDERLINE ECG WHEN COMPARED WITH ECG OF 01-MAR-2018 01:45, CRITERIA FOR SEPTAL INFARCT ARE NO LONGER PRESENT Confirmed by RADHA VELIZ, POORNIMA ([id number]) on 03/01/2018 11:53:28 AM Referred By: Confirmed By:POORNIMA GARCIA MD
--- NOTE | 2018-03-01 11:55 | EKG ---
Test Reason : Blood Pressure : / mmHG Vent. Rate : 071 BPM Atrial Rate : 071 BPM P-R Int : 128 ms QRS Dur : 078 ms QT Int : 406 ms P-R-T Axes : 063 035 042 degrees QTc Int : 441 ms POOR DATA QUALITY, INTERPRETATION MAY BE ADVERSELY AFFECTED NORMAL SINUS RHYTHM MINIMAL VOLTAGE CRITERIA FOR LVH, MAY BE NORMAL VARIANT SEPTAL INFARCT , AGE UNDETERMINED ABNORMAL ECG WHEN COMPARED WITH ECG OF 03-SEP-2017 22:33, SEPTAL INFARCT IS NOW PRESENT Confirmed by RADHA VELIZ, POORNIMA ([id number]) on 03/01/2018 11:54:31 AM Referred By: Confirmed By:POORNIMA GARCIA MD
--- NOTE | 2018-03-01 14:04 | CONSULT ---
[facility] Psychiatric Consult - Data Date of interview: 03/01/18 Admission source: [facility] Identifying data: Patient is a 77 year old male, single, domiciled, father of one, retired (receiving SSI). This is one of multiple admissions for patient. Patient admitted to for alcohol dependence. Substance Abuse History: Smoking Cessation. Smoking history: Never smoked. Have you smoked in the past 12 months: No. Aproximately how many cigarettes per day: 0. Cigars Per Day: 0. Hx Chewing Tobacco Use: No. Initiated information on smoking cessation: No. - Substance & Tx. History. Hx Alcohol Use: Yes. Hx Substance Use: Yes. Substance Use Type: Alcohol. Hx Substance Use Treatment: Yes ([facility]). - Substances Abused. LIQUOR/BEER. Route: Oral. Frequency: Daily. Amount used: 1QUART/ 6-22OZ. Age of first use: 19. Date of Last Use: 02/28/18 Medical History: hypertension, craniotomy with 32 day admission to [facility] (work related injury- pipe fell causing head trauma) Psychiatric History: Patient denies h/o psychiatric hospitalization, outpatient care and suicide attempt. Physical/Sexual Abuse/Trauma History: Denies. Mental Status Exam - Mental Status Exam Alert and Oriented to: Time, Place, Person Cognitive Function: Good Patient Appearance: Well Groomed Mood: Hopeful Affect: Appropriate Patient Behavior: Appropriate, Cooperative Speech Pattern: Appropriate Voice Loudness: Normal Thought Process: Intact, Goal Oriented Thought Disorder: Not Present Hallucinations: Denies Suicidal Ideation: Denies Homicidal Ideation: Denies Insight/Judgement: Poor Sleep: Fair Appetite: Fair Muscle strength/Tone: Normal Gait/Station: Normal Psychiatric Findings - Problem List ([place] 1, 2,3) (1) Alcohol dependence with uncomplicated withdrawal Current Visit: Yes Status: Acute - Initial Treatment Plan Initial Treatment Plan: Psychoeducation provided. Detoxification in progress. Observation.
[2018-03-01 17:06] LABS: URINE APPEARANCE CLEAR; URINE BILIRUBIN NEGATIVE (<2.0 mg/dL); URINE BLOOD NEGATIVE (NEGATIVE); URINE COLOR YELLOW; URINE GLUCOSE (UA) NEGATIVE (NEGATIVE); URINE KETONE NEGATIVE (NEGATIVE); URINE LEUK ESTERASE NEGATIVE (NEGATIVE); URINE NITRITE NEGATIVE (NEGATIVE); URINE PROTEIN NEGATIVE (NEGATIVE); URINE UROBILINOGEN NEGATIVE mg/dL (0.2-1.0)
[2018-03-02] MEDS: chlordiazePOXIDE HCL 25 MG CAPSULE PO SCH (05:03)
[2018-03-02 10:19] LABS: HEMATOCRIT 39.7 % (35.4-49); HEMOGLOBIN 13.2 GM/dL (11.7-16.9); MCH 28.2 pg (25.7-33.7); MCHC 33.4 g/dl (32.0-35.9); MEAN CELL VOLUME 84.6 fl (80-96); MEAN PLT VOLUME 8.2 fl (7.5-11.1); PLATELET COUNT 165 K/MM3 (134-434); RBC 4.69 M/mm3 (4.00-5.60); RDW 14.4 % (11.9-15.9); WHITE BLOOD COUNT 5.9 K/mm3 (4.0-10.0)
[2018-03-02] MEDS: chlordiazePOXIDE 5 MG CAPSULE PO SCH ×2 (10:35→17:22)
[2018-03-02] MEDS: METOPROLOL TARTRATE 25 MG TABLET (FP) PO SCH ×2 (10:35→22:08)
[2018-03-02] MEDS: amLODIPine BESYLATE 10 MG TABLET (FP) PO SCH (10:35)
[2018-03-02] MEDS: PRENATAL VITAMINS W/ FOLIC ACID TABLET (FP) PO SCH (10:35)
[2018-03-02] MEDS: LISINOPRIL 10 MG TABLET (FP) PO SCH ×2 (10:36→22:08)
[2018-03-02 10:49] LABS: CHLORIDE 104 mmol/L (98-107); SODIUM 138 mmol/L (136-145)
--- NOTE | 2018-03-02 11:09 | PN ---
[facility] CIWA - CIWA Score Nausea/Vomitin-No Nausea/No Vomiting Muscle Tremors: 3 Anxiety: 4-Mod. Anxious/Guarded Agitation: 3 Paroxysmal Sweats: 1-Minimal Palms Moist Orientation: 0-Oriented Tacttile Disturbances: 0-None Auditory Disturbances: 0-None Visual Disturbances: 0-None Headache: 0-None Present CIWA-Ar Total Score: 11 S Progress Note (SOAP) Subjective: DECREASED ANXIETY,TREMORS,SWEATS. ALERT O X 3. OOB WITH STEADY GAIT. PT SAW COUNSELOR TO ADDRESS POSSIBLE REHAB TOMORROW. Objective: 03/02/18 11:08 Vital Signs Temperature 97.5 F L 03/02/18 10:07 Pulse Rate 56 L 03/02/18 10:07 Respiratory Rate 18 03/02/18 10:07 Blood Pressure 134/73 03/02/18 10:07 O2 Sat by Pulse Oximetry (%) Laboratory Tests 03/01/18 03/02/18 03/02/18 14:00 08:00 08:00 WBC 5.9 RBC 4.69 Hgb 13.2 Hct 39.7 MCV 84.6 MCH 28.2 MCHC 33.4 RDW 14.4 Plt Count 165 MPV 8.2 Sodium 138 Potassium 4.0 Chloride 104 Urine Color Yellow Urine Appearance Clear Urine pH 6.0 Ur Specific [place] 1.013 Urine Protein Negative Urine Glucose (UA) Negative Urine Ketones Negative Urine Blood Negative Urine Nitrite Negative Urine Bilirubin Negative Urine Urobilinogen Negative Ur Leukocyte Esterase Negative OTHER LAB RESULTS PENDING. Assessment: 03/02/18 11:08 WITHDRAWAL SX Plan: CONTINUE DETOX
[2018-03-02 12:05] LABS: ALK PHOS 75 U/L (45-117); ANION GAP 8 (8-16); CO2 26 mmol/L (21-32); SGPT/ALT 28 U/L (12-78)
[2018-03-02 12:11] LABS: ALBUMIN 3.3 g/dl (3.4-5.0); BILIRUBIN,TOTAL 0.3 mg/dL (0.2-1.0); BLOOD UREA NITROGEN 16 mg/dL (7-18); CALCIUM 8.7 mg/dL (8.5-10.1); CREATININE 1.2 mg/dL (0.7-1.3); GLUCOSE,RANDOM 84 mg/dL (74-106); SGOT/AST 24 U/L (15-37); TOT PROT 6.5 g/dl (6.4-8.2)
[2018-03-02] MEDS: THIAMINE HCL 100 MG TABLET (FP) PO SCH (22:37)
[2018-03-02] MEDS ORDERED: chlordiazePOXIDE 5 MG CAPSULE PO SCH (23:00)
[2018-03-03] MEDS: chlordiazePOXIDE HCL 10 MG CAPSULE PO SCH ×2 (05:39→10:40)
[2018-03-03 09:01] VITALS: BP 134/73; PULSE 64; TEMP 96.2
[2018-03-03] MEDS: amLODIPine BESYLATE 10 MG TABLET (FP) PO SCH (10:35)
[2018-03-03] MEDS: LISINOPRIL 10 MG TABLET (FP) PO SCH (10:35)
[2018-03-03] MEDS: PRENATAL VITAMINS W/ FOLIC ACID TABLET (FP) PO SCH (10:35)
[2018-03-03] MEDS: METOPROLOL TARTRATE 25 MG TABLET (FP) PO SCH (10:36)
--- NOTE | 2018-03-03 11:48 | PN ---
[facility] Progress Note (SOAP) Subjective: Patient denies current Detox symptoms and reports that he feels well overall. Objective: PATIENT A & O X 3, OBSERVED AMBULATING ON UNIT. NO ACUTE DISTRESS. 03/03/18 11:43 Vital Signs Temperature 96.2 F L 03/03/18 09:00 Pulse Rate 64 03/03/18 09:00 Respiratory Rate 18 03/03/18 09:00 Blood Pressure 134/73 03/03/18 09:00 O2 Sat by Pulse Oximetry (%) Laboratory Tests 03/01/18 03/02/18 03/02/18 14:00 08:00 08:00 WBC 5.9 RBC 4.69 Hgb 13.2 Hct 39.7 MCV 84.6 MCH 28.2 MCHC 33.4 RDW 14.4 Plt Count 165 MPV 8.2 Sodium 138 Potassium 4.0 Chloride 104 Carbon Dioxide 26 Anion Gap 8 BUN 16 Creatinine 1.2 Creat Clearance w eGFR 58.86 Random Glucose 84 Calcium 8.7 Total Bilirubin 0.3 D AST 24 ALT 28 D Alkaline Phosphatase 75 Total Protein 6.5 Albumin 3.3 L Urine Color Yellow Urine Appearance Clear Urine pH 6.0 Ur Specific [place] 1.013 Urine Protein Negative Urine Glucose (UA) Negative Urine Ketones Negative Urine Blood Negative Urine Nitrite Negative Urine Bilirubin Negative Urine Urobilinogen Negative Ur Leukocyte Esterase Negative RPR Titer 03/02/18 08:00 WBC RBC Hgb Hct MCV MCH MCHC RDW Plt Count MPV Sodium Potassium Chloride Carbon Dioxide Anion Gap BUN Creatinine Creat Clearance w eGFR Random Glucose Calcium Total Bilirubin AST ALT Alkaline Phosphatase Total Protein Albumin Urine Color Urine Appearance Urine pH Ur Specific [place] Urine Protein Urine Glucose (UA) Urine Ketones Urine Blood Urine Nitrite Urine Bilirubin Urine Urobilinogen Ur Leukocyte Esterase RPR Titer Nonreactive LABS NOTED. Assessment: 03/03/18 11:44 COMPLETION OF DETOX REGIMEN. Plan: PATIENT SCHEDULED FOR DISCHARGE FROM DETOX TODAY.
--- NOTE | 2018-03-03 11:53 | DS ---
[facility] Detox Discharge Summary Admission Date: 02/28/18 Discharge Date: 03/03/18 - History Present History: Alcohol Dependence Additional Comments: PATIENT GOING TO [facility] [place] FOR AFTERCARE. PATIENT DOES NOT CURRENTLY HAVE A PATTERN SCRATCHER, PATIENT ADVISED TO OBTAIN ONE AT [facility] SOON POSSIBLE TO GO FOR GENERAL MEDICAL ASSESSMENT AND FOR HISTORY OF HTN. PATIENT WAS DISCHARGED FROM DETOX UNIT IN STABLE MEDICAL CONDITION. Pertinent Past History: HTN, History of Positive PPD. - Physical Exam Results Vital Signs: Vital Signs Temperature 96.2 F L 03/03/18 09:00 Pulse Rate 64 03/03/18 09:00 Respiratory Rate 18 03/03/18 09:00 Blood Pressure 134/73 03/03/18 09:00 O2 Sat by Pulse Oximetry (%) Pertinent Admission Physical Exam Findings: WITHDRAWAL SYMPTOMS. Laboratory Tests 03/01/18 03/02/18 03/02/18 14:00 08:00 08:00 WBC 5.9 RBC 4.69 Hgb 13.2 Hct 39.7 MCV 84.6 MCH 28.2 MCHC 33.4 RDW 14.4 Plt Count 165 MPV 8.2 Sodium 138 Potassium 4.0 Chloride 104 Carbon Dioxide 26 Anion Gap 8 BUN 16 Creatinine 1.2 Creat Clearance w eGFR 58.86 Random Glucose 84 Calcium 8.7 Total Bilirubin 0.3 D AST 24 ALT 28 D Alkaline Phosphatase 75 Total Protein 6.5 Albumin 3.3 L Urine Color Yellow Urine Appearance Clear Urine pH 6.0 Ur Specific [place] 1.013 Urine Protein Negative Urine Glucose (UA) Negative Urine Ketones Negative Urine Blood Negative Urine Nitrite Negative Urine Bilirubin Negative Urine Urobilinogen Negative Ur Leukocyte Esterase Negative RPR Titer 03/02/18 08:00 WBC RBC Hgb Hct MCV MCH MCHC RDW Plt Count MPV Sodium Potassium Chloride Carbon Dioxide Anion Gap BUN Creatinine Creat Clearance w eGFR Random Glucose Calcium Total Bilirubin AST ALT Alkaline Phosphatase Total Protein Albumin Urine Color Urine Appearance Urine pH Ur Specific [place] Urine Protein Urine Glucose (UA) Urine Ketones Urine Blood Urine Nitrite Urine Bilirubin Urine Urobilinogen Ur Leukocyte Esterase RPR Titer Nonreactive LABS NOTED. - Treatment Hospital Course: Detox Protocol Followed, Detoxed Safely, Responded well, Discharged Condition Good Patient has Accepted a Rehab Referral to: PT GOING TO [facility] ([place] 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
[2018-03-03] MEDS ORDERED: chlordiazePOXIDE HCL 10 MG CAPSULE PO SCH (23:00)
== END 2018-03-03 11:13 | disposition home or self-care (01) | DRG 897 ==
LOC: YASAS 16:39 → Y3N 21:36
PROVIDERS: ADMIT Surgery; ATTEND Surgery
PROC: HZ2ZZZZ Detoxification Services for Substance Abuse Treatment (ICD-10-PCS; principal; 2018-02-28)
DX: F10.230 Alcohol dependence with withdrawal, uncomplicated (principal); I10 Essential (primary) hypertension; R76.11 Nonspecific reaction to tuberculin skin test without active tuberculosis
CPT/HCPCS: 36415; 71046-TC-FY; 80053; 81003; 85027; 86593; 93005; 93010

== ENCOUNTER 2018-03-08 14:33 | Inpatient (IN) | payer OTHER ==
[2018-03-08 15:24] VITALS: BMI 29.0
--- NOTE | 2018-03-08 15:31 | HP ---
[facility] Rehab Assess/Revision - Admission History Admitted to Rehab from: [facility] Date of Admission to Rehab: 03/08/18 - Vital signs Vital Signs: Vital Signs Period Temp Pulse Resp BP Sys/Tao Pulse Ox Last 24 Hr 98 F 78 16 157/92 - Findings Detox History & Physical reviewed: Yes Concur with findings: Yes Comments/Additional Findings: PT RETURNED TODAY TO FOLLOW UP WITH REHAB AFTERCARE. ALERT O X 3. NAD. ADMIT TO REHAB TODAY. Inpatient Rehab Admission - Initial Determination Are CD services needed?: Yes Free of communicable disease: Yes Not in need of hospitalization: Yes - Rehab Admission Criteria Patient is meeting Inpatient Rehab admission criteria:: Yes
[2018-03-08] MEDS ORDERED: P-EPHED 60MG/TRIPROLIDI 2.5MG TABLET PO PRN (15:35)
[2018-03-08] MEDS ORDERED: LOPERAMIDE HCL 2 MG CAPSULE PO PRN (15:35)
[2018-03-08] MEDS ORDERED: hydrOXYzine PAMOATE 50 MG CAPSULE (FP) PO PRN (15:35)
[2018-03-08] MEDS ORDERED: guaiFENesin/D-METHORPHAN HB 10 ML UNIT-DOSE CUPS PO PRN (15:35)
[2018-03-08] MEDS ORDERED: IBUPROFEN 400 MG TABLET (FP) PO PRN (15:35)
[2018-03-08] MEDS ORDERED: MENTHOL/PHENOL 1 EACH UD MM PRN (15:35)
[2018-03-08] MEDS ORDERED: ACETAMINOPHEN 325 MG TABLET (FP) PO PRN (15:35)
[2018-03-08] MEDS ORDERED: MAGNESIUM CITRATE 300 ML BOTTLE PO PRN (15:35)
[2018-03-08] MEDS ORDERED: MAGNESIUM HYDROX 2400MG/30ML ORAL SUSPENSION 30 ML CUP PO PRN (15:35)
[2018-03-08] MEDS ORDERED: MAG HYDROX/AL HYDROX/SIMETH 30 ML UNIT-DOSE CUP PO PRN (15:35)
[2018-03-08] MEDS: amLODIPine BESYLATE 10 MG TABLET (FP) PO SCH (19:45)
[2018-03-08] MEDS: THIAMINE HCL 100 MG TABLET (FP) PO SCH (21:16)
[2018-03-08] MEDS: LISINOPRIL 10 MG TABLET (FP) PO SCH (21:16)
[2018-03-08] MEDS: METOPROLOL TARTRATE 25 MG TABLET (FP) PO SCH (21:16)
[2018-03-08] MEDS ORDERED: METOPROLOL TARTRATE 25 MG TABLET (FP) PO SCH (22:00)
[2018-03-08] MEDS ORDERED: MELATONIN 5 MG TABLETS PO PRN (22:00)
[2018-03-09 00:07] LABS: URINE APPEARANCE CLEAR; URINE BILIRUBIN NEGATIVE (<2.0 mg/dL); URINE COLOR STRAW; URINE GLUCOSE (UA) NEGATIVE (NEGATIVE); URINE KETONE NEGATIVE (NEGATIVE); URINE LEUK ESTERASE NEGATIVE (NEGATIVE); URINE NITRITE NEGATIVE (NEGATIVE); URINE PROTEIN NEGATIVE (NEGATIVE); URINE UROBILINOGEN NEGATIVE mg/dL (0.2-1.0)
--- NOTE | 2018-03-09 10:14 | HP ---
Psychiatrist Admission - Data Date of interview: 03/09/18 Admission source: Self-referred Identifying data: This is one of the multiple [facility] admission for this 77 years old single black male, father of a 46 years old son, unemployed on SSI, domiciled Medical History: Significant for hypertension, PPD+, history of craniotomy ( work related injury- pipe fell causing head trauma), tonsillectomy and surgery right tear duct. Psychiatric History: Patient denies history of psychiatric treatment. Physical/Sexual Abuse/Trauma History: Denies history of emotional, physical or sexual abuse as well as DV relationship. No service Additional Comment: Denies criminal history Vital Signs: Vital Signs - 24 hr 03/08/18 03/08/18 03/08/18 15:17 18:52 21:00 Temperature 98 F 97.6 F Pulse Rate 78 68 70 Respiratory 16 18 Rate Blood Pressure 157/92 145/79 147/77 03/09/18 00:30 Temperature Pulse Rate Respiratory 18 Rate Blood Pressure Allergies/Adverse Reactions: Allergies Allergy/AdvReac Type Severity Reaction Status Date / Time No Known Allergies Allergy Verified 03/08/18 15:41 Date of last physical exam: 02/28/18 Concur with the findings of this exam: Yes - Substance Abuse/Tx History Hx Alcohol Use: Yes Substance Use Type: Alcohol (Started drinking alcohol at age 77, consumes one quart of liquor & 6x 22oz of beer daily. Last drank on 02/28/18) Hx Substance Use Treatment: Yes (8 previous inpt detox & 4 inpt rehab @ [facility]) Mental Status Exam - Mental Status Exam Alert and Oriented to: Time, Place, Person Cognitive Function: Fair Patient Appearance: Well Groomed Mood: Happy Affect: Appropriate Patient Behavior: Cooperative Speech Pattern: Clear Voice Loudness: Normal Thought Process: Intact, Goal Oriented Thought Disorder: Not Present Hallucinations: Denies Suicidal Ideation: Denies Homicidal Ideation: Denies Insight/Judgement: Fair Sleep: Well Appetite: Good Muscle strength/Tone: Normal Gait/Station: Normal Psychiatric Findings - Problem List ([place] 1, 2,3) (1) Alcohol dependence Current Visit: Yes Status: Acute (2) Essential hypertension Current Visit: No Status: Chronic (3) Positive PPD Current Visit: No Status: Chronic - Initial Treatment Plan Initial Treatment Plan: Monitor progress
[2018-03-09] MEDS: PRENATAL VITAMINS W/ FOLIC ACID TABLET (FP) PO SCH (10:17)
[2018-03-09] MEDS: METOPROLOL TARTRATE 25 MG TABLET (FP) PO SCH ×2 (10:17→21:11)
[2018-03-09] MEDS: LISINOPRIL 10 MG TABLET (FP) PO SCH ×2 (10:17→21:11)
[2018-03-09] MEDS: amLODIPine BESYLATE 10 MG TABLET (FP) PO SCH (10:17)
--- NOTE | 2018-03-09 11:14 | EKG ---
Test Reason : Blood Pressure : / mmHG Vent. Rate : 064 BPM Atrial Rate : 064 BPM P-R Int : 154 ms QRS Dur : 080 ms QT Int : 410 ms P-R-T Axes : 068 045 046 degrees QTc Int : 422 ms NORMAL SINUS RHYTHM EARLY REPOLARIZATION NORMAL ECG WHEN COMPARED WITH ECG OF 01-MAR-2018 09:04, NO SIGNIFICANT CHANGE WAS FOUND Confirmed by CONCHIS MEJIA MD ([id number]) on 03/09/2018 11:14:21 AM Referred By: Confirmed By:CONCHIS MEJIA MD
[2018-03-09] MEDS: THIAMINE HCL 100 MG TABLET (FP) PO SCH (21:11)
[2018-03-10] MEDS: METOPROLOL TARTRATE 25 MG TABLET (FP) PO SCH ×2 (10:22→21:32)
[2018-03-10] MEDS: amLODIPine BESYLATE 10 MG TABLET (FP) PO SCH (10:22)
[2018-03-10] MEDS: PRENATAL VITAMINS W/ FOLIC ACID TABLET (FP) PO SCH (10:22)
[2018-03-10] MEDS: LISINOPRIL 10 MG TABLET (FP) PO SCH ×2 (10:22→21:32)
[2018-03-10] MEDS: THIAMINE HCL 100 MG TABLET (FP) PO SCH (21:32)
[2018-03-11] MEDS: LISINOPRIL 10 MG TABLET (FP) PO SCH ×2 (10:12→21:37)
[2018-03-11] MEDS: amLODIPine BESYLATE 10 MG TABLET (FP) PO SCH (10:12)
[2018-03-11] MEDS: PRENATAL VITAMINS W/ FOLIC ACID TABLET (FP) PO SCH (10:12)
[2018-03-11] MEDS: METOPROLOL TARTRATE 25 MG TABLET (FP) PO SCH ×2 (10:12→21:37)
[2018-03-11] MEDS: THIAMINE HCL 100 MG TABLET (FP) PO SCH (21:37)
[2018-03-12] MEDS: amLODIPine BESYLATE 10 MG TABLET (FP) PO SCH (10:22)
[2018-03-12] MEDS: PRENATAL VITAMINS W/ FOLIC ACID TABLET (FP) PO SCH (10:22)
[2018-03-12] MEDS: METOPROLOL TARTRATE 25 MG TABLET (FP) PO SCH ×2 (10:22→21:27)
[2018-03-12] MEDS: LISINOPRIL 10 MG TABLET (FP) PO SCH ×2 (10:22→21:27)
[2018-03-12] MEDS: THIAMINE HCL 100 MG TABLET (FP) PO SCH (21:27)
[2018-03-13] MEDS: PRENATAL VITAMINS W/ FOLIC ACID TABLET (FP) PO SCH (10:30)
[2018-03-13] MEDS: amLODIPine BESYLATE 10 MG TABLET (FP) PO SCH (10:30)
[2018-03-13] MEDS: METOPROLOL TARTRATE 25 MG TABLET (FP) PO SCH ×2 (10:31→21:26)
[2018-03-13] MEDS: LISINOPRIL 10 MG TABLET (FP) PO SCH ×2 (10:32→21:26)
[2018-03-13] MEDS: THIAMINE HCL 100 MG TABLET (FP) PO SCH (21:26)
[2018-03-14] MEDS: LISINOPRIL 10 MG TABLET (FP) PO SCH ×2 (10:18→21:25)
[2018-03-14] MEDS: PRENATAL VITAMINS W/ FOLIC ACID TABLET (FP) PO SCH (10:18)
[2018-03-14] MEDS: METOPROLOL TARTRATE 25 MG TABLET (FP) PO SCH ×2 (10:19→21:25)
[2018-03-14] MEDS: amLODIPine BESYLATE 10 MG TABLET (FP) PO SCH (10:19)
[2018-03-14] MEDS: THIAMINE HCL 100 MG TABLET (FP) PO SCH (21:25)
[2018-03-15] MEDS: PRENATAL VITAMINS W/ FOLIC ACID TABLET (FP) PO SCH (10:51)
[2018-03-15] MEDS: amLODIPine BESYLATE 10 MG TABLET (FP) PO SCH (10:51)
[2018-03-15] MEDS: METOPROLOL TARTRATE 25 MG TABLET (FP) PO SCH ×2 (10:51→21:23)
[2018-03-15] MEDS: LISINOPRIL 10 MG TABLET (FP) PO SCH ×2 (10:51→21:23)
[2018-03-15] MEDS: THIAMINE HCL 100 MG TABLET (FP) PO SCH (21:23)
[2018-03-16] MEDS: amLODIPine BESYLATE 10 MG TABLET (FP) PO SCH (10:28)
[2018-03-16] MEDS: PRENATAL VITAMINS W/ FOLIC ACID TABLET (FP) PO SCH (10:28)
[2018-03-16] MEDS: LISINOPRIL 10 MG TABLET (FP) PO SCH ×2 (10:28→21:37)
[2018-03-16] MEDS: METOPROLOL TARTRATE 25 MG TABLET (FP) PO SCH ×2 (10:28→21:37)
[2018-03-16] MEDS: THIAMINE HCL 100 MG TABLET (FP) PO SCH (21:37)
[2018-03-17] MEDS: LISINOPRIL 10 MG TABLET (FP) PO SCH ×2 (10:20→21:37)
[2018-03-17] MEDS: METOPROLOL TARTRATE 25 MG TABLET (FP) PO SCH ×2 (10:20→21:37)
[2018-03-17] MEDS: amLODIPine BESYLATE 10 MG TABLET (FP) PO SCH (10:20)
[2018-03-17] MEDS: PRENATAL VITAMINS W/ FOLIC ACID TABLET (FP) PO SCH (10:20)
[2018-03-17] MEDS: THIAMINE HCL 100 MG TABLET (FP) PO SCH (21:37)
[2018-03-18] MEDS: PRENATAL VITAMINS W/ FOLIC ACID TABLET (FP) PO SCH (10:20)
[2018-03-18] MEDS: METOPROLOL TARTRATE 25 MG TABLET (FP) PO SCH ×2 (10:20→21:15)
[2018-03-18] MEDS: amLODIPine BESYLATE 10 MG TABLET (FP) PO SCH (10:20)
[2018-03-18] MEDS: LISINOPRIL 10 MG TABLET (FP) PO SCH ×2 (10:20→21:15)
[2018-03-18] MEDS: THIAMINE HCL 100 MG TABLET (FP) PO SCH (21:15)
[2018-03-19] MEDS: LISINOPRIL 10 MG TABLET (FP) PO SCH (10:34)
[2018-03-19] MEDS: METOPROLOL TARTRATE 25 MG TABLET (FP) PO SCH (10:34)
[2018-03-19] MEDS: PRENATAL VITAMINS W/ FOLIC ACID TABLET (FP) PO SCH (10:34)
[2018-03-19] MEDS: amLODIPine BESYLATE 10 MG TABLET (FP) PO SCH (10:34)
[2018-03-20] MEDS: LISINOPRIL 10 MG TABLET (FP) PO SCH ×3 (00:25→21:16)
[2018-03-20] MEDS: THIAMINE HCL 100 MG TABLET (FP) PO SCH ×2 (00:25→21:16)
[2018-03-20] MEDS: METOPROLOL TARTRATE 25 MG TABLET (FP) PO SCH ×3 (00:25→21:16)
[2018-03-20] MEDS: amLODIPine BESYLATE 10 MG TABLET (FP) PO SCH (10:11)
[2018-03-20] MEDS: PRENATAL VITAMINS W/ FOLIC ACID TABLET (FP) PO SCH (10:11)
[2018-03-21] MEDS: PRENATAL VITAMINS W/ FOLIC ACID TABLET (FP) PO SCH (10:13)
[2018-03-21] MEDS: amLODIPine BESYLATE 10 MG TABLET (FP) PO SCH (10:13)
[2018-03-21] MEDS: METOPROLOL TARTRATE 25 MG TABLET (FP) PO SCH ×2 (10:13→21:32)
[2018-03-21] MEDS: LISINOPRIL 10 MG TABLET (FP) PO SCH ×2 (10:13→21:32)
[2018-03-21] MEDS: THIAMINE HCL 100 MG TABLET (FP) PO SCH (21:32)
[2018-03-22] MEDS: PRENATAL VITAMINS W/ FOLIC ACID TABLET (FP) PO SCH (10:22)
[2018-03-22] MEDS: METOPROLOL TARTRATE 25 MG TABLET (FP) PO SCH ×2 (10:22→21:14)
[2018-03-22] MEDS: amLODIPine BESYLATE 10 MG TABLET (FP) PO SCH (10:23)
[2018-03-22] MEDS: LISINOPRIL 10 MG TABLET (FP) PO SCH ×2 (10:24→21:14)
[2018-03-22] MEDS: THIAMINE HCL 100 MG TABLET (FP) PO SCH (21:14)
[2018-03-22 21:16] VITALS: PULSE 58
[2018-03-23 06:53] VITALS: BP 154/75; TEMP 97.9
[2018-03-23] MEDS: amLODIPine BESYLATE 10 MG TABLET (FP) PO SCH (10:06)
[2018-03-23] MEDS: METOPROLOL TARTRATE 25 MG TABLET (FP) PO SCH (10:06)
[2018-03-23] MEDS: PRENATAL VITAMINS W/ FOLIC ACID TABLET (FP) PO SCH (10:06)
[2018-03-23] MEDS: LISINOPRIL 10 MG TABLET (FP) PO SCH (10:06)
--- NOTE | 2018-03-23 10:16 | PN ---
Psychiatric Progress Note Vital Signs: Vital Signs Period Temp Pulse Resp BP Sys/Tao Pulse Ox Last 24 Hr 97.9 F 58-58 18-18 149-154/74-75 Date of Session: 03/23/18 Chief Complaint:: Discharge visit HPI: patient addressed Alcohol dependence. ROS: Significant for Head injury. Current Medications: Active Medications Generic Name Dose Route Start Last Admin Trade Name Freq PRN Reason Stop Dose Admin Acetaminophen 650 mg 03/08/18 15:35 03/16/18 13:20 Tylenol - PO 650 mg Q4H PRN Administration FEVER Al Hydroxide/Mg Hydroxide 30 ml 03/08/18 15:35 Mylanta Oral Suspension - PO Q6H PRN DYSPEPSIA Amlodipine Besylate 10 mg 03/08/18 17:15 03/23/18 10:06 Norvasc - PO 10 mg DAILY FELIX Administration Eucalyptus/Menthol/Phenol/Sorbitol 1 each 03/08/18 15:35 Cepastat Lozenge - MM Q4H PRN SORE THROAT Guaifenesin 10 ml 03/08/18 15:35 Robitussin Dm - PO Q6H PRN COUGH Hydroxyzine Pamoate 50 mg 03/08/18 15:35 Vistaril - PO Q4H PRN AGITATION Ibuprofen 400 mg 03/08/18 15:35 03/20/18 14:33 Motrin - PO 400 mg Q6H PRN Administration Pain level 4-6 Lisinopril 10 mg 03/08/18 22:00 03/23/18 10:06 Prinivil PO 10 mg BID FELIX Administration Loperamide HCl 4 mg 03/08/18 15:35 Imodium - PO Q6H PRN DIARRHEA Magnesium Citrate 300 ml 03/08/18 15:35 Citroma - PO Q48H PRN CONSTIPATION Magnesium Hydroxide 30 ml 03/08/18 15:35 Milk Of Magnesia - PO DAILY PRN CONSTIPATION Melatonin 5 mg 03/08/18 22:00 Melatonin PO HS PRN INSOMNIA Metoprolol Tartrate 25 mg 03/08/18 22:00 03/23/18 10:06 Lopressor - PO 25 mg BID FELIX Administration Multivit/Folic Acid/Iron 1 tab 03/09/18 10:00 03/23/18 10:06 Vitamins (Sjr) - PO 1 tab DAILY FELIX Administration Pseudoephedrine/Triprolidine 1 combo 03/08/18 15:35 Actifed - PO TID PRN NASAL CONGESTION Thiamine HCl 100 mg 03/08/18 22:00 03/22/18 21:14 Vitamin B1 - PO 100 mg HS FELIX Administration Current Side Effect: No Lab tests ordered: No Lab tests reviewed: Yes Provider note:: patient completed this program today.He has met his treatment goals and [facility]patient identifies areas of difficulties and ways ,resourses to utilze coping skills,support system to maintain recovery. Supportive therapy provided. Patient is stable for discharge today. Total face to face time:: 25 Mental Status Exam - Mental Status Exam Alert and Oriented to: Time, Place, Person Cognitive Function: Grossly Intact Mood: Hopeful, Euthymic Affect: Appropriate, Mood Congruent Patient Behavior: Cooperative Speech Pattern: Clear Voice Loudness: Normal Thought Process: Goal Oriented Thought Disorder: Not Present Hallucinations: Denies Suicidal Ideation: Denies Homicidal Ideation: Denies Insight/Judgement: Fair Sleep: Fair Appetite: Fair Muscle strength/Tone: Normal Gait/Station: Normal
== END 2018-03-23 11:00 | disposition home or self-care (01) | DRG 895 ==
LOC: YASAS 14:33 → Y5N 17:45
PROVIDERS: ADMIT Psychiatry & Neurology Psychiatry; ATTEND Psychiatry & Neurology Psychiatry
PROC: HZ42ZZZ Group Counseling for Substance Abuse Treatment, Cognitive-Behavioral (ICD-10-PCS; principal; 2018-03-08)
DX: F10.20 Alcohol dependence, uncomplicated (principal); I10 Essential (primary) hypertension; R76.11 Nonspecific reaction to tuberculin skin test without active tuberculosis; Z87.820 Personal history of traumatic brain injury
CPT/HCPCS: 81003; 93005; 93010

== ENCOUNTER 2018-06-30 14:48 | Inpatient (IN) | payer OTHER ==
[2018-06-30 15:25] VITALS: BMI 28.0
--- NOTE | 2018-06-30 21:34 | HP ---
CIWA Score - CIWA Score Nausea/Vomitin-No Nausea/No Vomiting Muscle Tremors: 2 Anxiety: 3 Agitation: 1-Slight > Activity Paroxysmal Sweats: 3 (Hold Coverage but give Levimir,) Orientation: 0-Oriented Tacttile Disturbances: 0-None Auditory Disturbances: 0-None Visual Disturbances: 0-None Headache: 0-None Present CIWA-Ar Total Score: 9 Admission ROS [facility] - HPI Chief Complaint: having alcohol withdrawal. Allergies/Adverse Reactions: Allergies Allergy/AdvReac Type Severity Reaction Status Date / Time No Known Allergies Allergy Verified 06/30/18 16:50 History of Present Illness: Alcohol use since age 19. Here for alcohol detox. Denies hx seizures, blackouts, or DT's. Multiple detox admissions. Longest sobriety for 9 months - 2 years w/ Sikhism and support groups. Hx: HTN, s/p Head trauma Denies other significant PMH Exam Limitations: No Limitations - Ebola screening Have you traveled outside of the country in the last 21 days: No Have you had contact with anyone from an Ebola affected area: No Have you been sick,other than usual withdrawal symptoms: No - Review of Systems Constitutional: Diaphoresis EENT: reports: Dental Problems (Missing teeth. Chew and swallows okay.) Respiratory: reports: No Symptoms reported Cardiac: reports: No Symptoms Reported, Other (Hx. HTN) GI: reports: No Symptoms Reported : reports: No Symptoms Reported Musculoskeletal: reports: No Symptoms Reported Integumentary: reports: Lesions (Large scatteed lesions on face since . States may be a liitle bigger and will f/u and see a valve tester on discharge. ) Neuro: reports: Tremors Endocrine: reports: No Symptoms Reported Hematology: reports: No Symptoms Reported Psychiatric: reports: Judgement Intact, Mood/Affect Appropiate, Orientated x3, Agitated, Anxious Patient History - Patient Medical History Hx Anemia: No Hx Asthma: No Hx Chronic Obstructive Pulmonary Disease (COPD): No Hx Cancer: No Hx Cardiac Disorders: No Hx Congestive Heart Failure: No Hx Hypertension: Yes (on med) Hx Hypercholesterolemia: No Hx Pacemaker: No HX Cerebrovascular Accident: No Hx Seizures: No Hx Dementia: No Hx Diabetes: No Hx Gastrointestinal Disorders: No Hx Liver Disease: No Hx Genitourinary Disorders: No Hx Sexually Transmitted Disorders: Yes (gonorrhea at age 19) Hx Renal Disease (ESRD): No Hx Thyroid Disease: No Hx Human Immunodeficiency Virus (HIV): No (last 2017 negative) Hx Hepatitis C: No Hx Depression: No Hx Suicide Attempt: No Hx Bipolar Disorder: No Hx Schizophrenia: No - Patient Surgical History Past Surgical History: Yes Hx Neurologic Surgery: Yes (head trauma ([facility])) Hx Cataract Extraction: No Hx Cardiac Surgery: No Hx Lung Surgery: No Hx Breast Surgery: No Hx Breast Biopsy: No Hx Abdominal Surgery: No Hx Appendectomy: No Hx Cholecystectomy: No Hx Genitourinary Surgery: No Hx Orthopedic Surgery: No Other Surgical History: ,tonsilectomy 25yrs,SURGERY OF TEAR DUCT RIGHT 40 YEARS AGO Anesthesia Reaction: No - PPD History Previous Implant?: Yes Documented Results: Positive w/o proof (CXRay - 03/01/18 -w/o TB) Implanted On Prior [facility] Admission?: No PPD to be Administered?: No - Smoking Cessation Smoking history: Never smoked Have you smoked in the past 12 months: No Aproximately how many cigarettes per day: 0 Cigars Per Day: 0 Hx Chewing Tobacco Use: No Initiated information on smoking cessation: No - Substances Abused Alcohol Route: Oral Frequency: Daily Amount used: 3-4 24OZ CANS OF BEER Age of first use: 19 Date of Last Use: 06/30/18 Family Disease History - Family Disease History Family Disease History: Diabetes: Mother (), Other: Father (ALCOHOL, ) Admission Physical Exam [facility] - Vital Signs Vital Signs: Vital Signs - 24 hr 06/30/18 15:22 Temperature 96.7 F L Pulse Rate 66 Respiratory 19 Rate Blood Pressure 157/87 - Physical General Appearance: Yes: Appropriately Dressed, Mild Distress, Tremorous (Mild tremors of hands), Sweating (Increased facial moisture w/o beading.), Anxious HEENTM: Yes: EOMI, Hearing grossly Normal, Normocephalic, Normal Voice, MIRIAN, Pharynx Normal (Dry mucous membranes) Respiratory: Yes: Chest Non-Tender, Lungs Clear, Normal Breath Sounds, No Respiratory Distress Neck: Yes: No masses,lesions,Nodules, Supple Breast: Yes: Breast Exam Deferred Cardiology: Yes: Regular Rhythm, Regular Rate, S1, S2, Murmur Abdominal: Yes: Normal Bowel Sounds, Non Tender, Soft Genitourinary: Yes: Within Normal Limits Back: Yes: Normal Inspection Musculoskeletal: Yes: full range of Motion, Gait Steady Extremities: Yes: Normal Capillary Refill, Tremors 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 Multiple scattered dark moles ranging from 2 - 20 mm on facial area. No tender.) Lymphatic: Yes: Within Normal Limits - Diagnostic (1) Dehydration Current Visit: Yes Status: Acute (2) Alcohol dependence with uncomplicated withdrawal Current Visit: Yes Status: Acute (3) Essential hypertension Current Visit: Yes Status: Chronic (4) Positive PPD Current Visit: No Status: Chronic (5) Numerous skin moles Current Visit: Yes Status: Chronic Cleared for Admission [facility] - Detox or Rehab [facility] Level of Care: Medically Managed (NIKI 0.26) Detox Regimen/Protocol: Librium [facility] Breath Alcohol Content Breath Alcohol Content: 0.26 Urine Drug Screen - Results Drug Screen Negative: No Urine Drug Screen Results: BZO-Benzodiazepines
[2018-06-30] MEDS ORDERED: P-EPHED 60MG/TRIPROLIDI 2.5MG TABLET PO PRN (21:56)
[2018-06-30] MEDS ORDERED: MAGNESIUM CITRATE 300 ML BOTTLE PO PRN (21:56)
[2018-06-30] MEDS ORDERED: chlordiazePOXIDE HCL 25 MG CAPSULE PO PRN (21:56)
[2018-06-30] MEDS ORDERED: MAGNESIUM HYDROX 2400MG/30ML ORAL SUSPENSION 30 ML CUP PO PRN (21:56)
[2018-06-30] MEDS ORDERED: MENTHOL/PHENOL 1 EACH UD MM PRN (21:56)
[2018-06-30] MEDS ORDERED: IBUPROFEN 400 MG TABLET (FP) PO PRN (21:56)
[2018-06-30] MEDS ORDERED: LOPERAMIDE HCL 2 MG CAPSULE PO PRN (21:56)
[2018-06-30] MEDS ORDERED: guaiFENesin/D-METHORPHAN HB 10 ML UNIT-DOSE CUPS PO PRN (21:56)
[2018-06-30] MEDS ORDERED: MAG HYDROX/AL HYDROX/SIMETH 30 ML UNIT-DOSE CUP PO PRN (21:56)
[2018-06-30] MEDS ORDERED: ACETAMINOPHEN 325 MG TABLET (FP) PO PRN (21:56)
[2018-06-30] MEDS ORDERED: MELATONIN 5 MG TABLETS PO PRN (22:00)
[2018-06-30] MEDS: THIAMINE HCL 100 MG TABLET (FP) PO SCH (22:50)
[2018-06-30] MEDS: chlordiazePOXIDE HCL 25 MG CAPSULE PO SCH (22:50)
[2018-07-01] MEDS: chlordiazePOXIDE HCL 25 MG CAPSULE PO SCH ×4 (05:12→22:08)
[2018-07-01 10:04] LABS: MCHC 32.6 g/dl (32.0-35.9); MEAN CELL VOLUME 85.9 fl (80-96); PLATELET COUNT 185 K/MM3 (134-434); RBC 4.66 M/mm3 (4.00-5.60); RDW 15.1 % (11.9-15.9); WHITE BLOOD COUNT 5.8 K/mm3 (4.0-10.0)
[2018-07-01] MEDS: PRENATAL VITAMINS W/ FOLIC ACID TABLET (FP) PO SCH (10:08)
[2018-07-01 10:44] LABS: URINE APPEARANCE CLEAR; URINE BILIRUBIN NEGATIVE (<2.0 mg/dL); URINE COLOR STRAW; URINE GLUCOSE (UA) NEGATIVE (NEGATIVE); URINE KETONE NEGATIVE (NEGATIVE); URINE LEUK ESTERASE NEGATIVE (NEGATIVE); URINE NITRITE NEGATIVE (NEGATIVE); URINE PROTEIN NEGATIVE (NEGATIVE); URINE UROBILINOGEN NEGATIVE mg/dL (0.2-1.0)
[2018-07-01 11:06] LABS: ALBUMIN 3.3 g/dl (3.4-5.0); ALK PHOS 79 U/L (45-117); ANION GAP 9 MMOL/L (8-16); BILIRUBIN,TOTAL 0.4 mg/dL (0.2-1); BLOOD UREA NITROGEN 16 mg/dL (7-18); CALCIUM 8.7 mg/dL (8.5-10.1); CHLORIDE 104 mmol/L (98-107); CO2 24 mmol/L (21-32); CREATININE 1.2 mg/dL (0.55-1.3); GLUCOSE,RANDOM 91 mg/dL (74-106); POTASSIUM 4.3 mmol/L (3.5-5.1); SGOT/AST 22 U/L (15-37); SGPT/ALT 19 U/L (13-61); SODIUM 136 mmol/L (136-145); TOT PROT 7.1 g/dl (6.4-8.2)
[2018-07-01] MEDS: ATENOLOL 50 MG TABLET (FP) PO SCH ×2 (11:07→22:08)
--- NOTE | 2018-07-01 15:06 | PN ---
[facility] CIWA - CIWA Score Nausea/Vomitin-No Nausea/No Vomiting Muscle Tremors: 2 Anxiety: 2 Agitation: 2 Paroxysmal Sweats: 2 Orientation: 0-Oriented Tacttile Disturbances: 0-None Auditory Disturbances: 0-None Visual Disturbances: 0-None Headache: 0-None Present CIWA-Ar Total Score: 8 S Progress Note (SOAP) Subjective: chills sweats, interrupted sleep, anxious Objective: 07/01/18 15:05 Vital Signs Temperature 97.7 F 07/01/18 13:35 Pulse Rate 56 L 07/01/18 13:35 Respiratory Rate 18 07/01/18 13:35 Blood Pressure 162/87 07/01/18 13:35 O2 Sat by Pulse Oximetry (%) Laboratory Last Values WBC 5.8 K/mm3 (4.0-10.0) 07/01/18 08:00 RBC 4.66 M/mm3 (4.00-5.60) 07/01/18 08:00 Hgb 13.0 GM/dL (11.7-16.9) 07/01/18 08:00 Hct 40.0 % (35.4-49) 07/01/18 08:00 MCV 85.9 fl (80-96) 07/01/18 08:00 MCH 28.0 pg (25.7-33.7) 07/01/18 08:00 MCHC 32.6 g/dl (32.0-35.9) 07/01/18 08:00 RDW 15.1 % (11.9-15.9) 07/01/18 08:00 Plt Count 185 K/MM3 (134-434) D 07/01/18 08:00 MPV 9.0 fl (7.5-11.1) 07/01/18 08:00 Sodium 136 mmol/L (136-145) 07/01/18 08:00 Potassium 4.3 mmol/L (3.5-5.1) 07/01/18 08:00 Chloride 104 mmol/L (98-107) 07/01/18 08:00 Carbon Dioxide 24 mmol/L (21-32) 07/01/18 08:00 Anion Gap 9 MMOL/L (8-16) 07/01/18 08:00 BUN 16 mg/dL (7-18) 07/01/18 08:00 Creatinine 1.2 mg/dL (0.55-1.3) 07/01/18 08:00 Creat Clearance w eGFR 58.71 (>60) 07/01/18 08:00 Random Glucose 91 mg/dL (74-106) 07/01/18 08:00 Calcium 8.7 mg/dL (8.5-10.1) 07/01/18 08:00 Total Bilirubin 0.4 mg/dL (0.2-1) 07/01/18 08:00 AST 22 U/L (15-37) 07/01/18 08:00 ALT 19 U/L (13-61) 07/01/18 08:00 Alkaline Phosphatase 79 U/L (45-117) 07/01/18 08:00 Total Protein 7.1 g/dl (6.4-8.2) 07/01/18 08:00 Albumin 3.3 g/dl (3.4-5.0) L 07/01/18 08:00 Urine Color Straw 06/30/18 10:00 Urine Appearance Clear 06/30/18 10:00 Urine pH 7.0 (5.0-8.0) D 06/30/18 10:00 Ur Specific [place] 1.006 (1.010-1.035) L 06/30/18 10:00 Urine Protein Negative (NEGATIVE) 06/30/18 10:00 Urine Glucose (UA) Negative (NEGATIVE) 06/30/18 10:00 Urine Ketones Negative (NEGATIVE) 06/30/18 10:00 Urine Blood Negative (NEGATIVE) 06/30/18 10:00 Urine Nitrite Negative (NEGATIVE) 06/30/18 10:00 Urine Bilirubin Negative (<2.0 mg/dL) 06/30/18 10:00 Urine Urobilinogen Negative mg/dL (0.2-1.0) 06/30/18 10:00 Ur Leukocyte Esterase Negative (NEGATIVE) 06/30/18 10:00 RPR Titer Nonreactive (NONREACTIVE) 07/01/18 08:00 AOx3 no distress full ROM ambulating in the unit Assessment: 07/01/18 15:05 withdrawal sx Plan: increase fluids continue to monitor
--- NOTE | 2018-07-01 17:27 | EKG ---
Test Reason : Blood Pressure : / mmHG Vent. Rate : 068 BPM Atrial Rate : 068 BPM P-R Int : 130 ms QRS Dur : 076 ms QT Int : 398 ms P-R-T Axes : 072 042 056 degrees QTc Int : 423 ms NORMAL SINUS RHYTHM MINIMAL VOLTAGE CRITERIA FOR LVH, MAY BE NORMAL VARIANT EARLY REPOLARIZATION BORDERLINE ECG WHEN COMPARED WITH ECG OF 04-MAY-2018 15:13, NO SIGNIFICANT CHANGE WAS FOUND BASELINE ARTIFACT Confirmed by KRISTINA VELIZ, CLARIBEL ([id number]) on 07/01/2018 5:27:11 PM Referred By: Confirmed By:CLARIBEL ACEVEDO MD
[2018-07-01] MEDS: THIAMINE HCL 100 MG TABLET (FP) PO SCH (22:08)
[2018-07-02] MEDS: chlordiazePOXIDE HCL 25 MG CAPSULE PO SCH ×3 (05:14→17:48)
[2018-07-02] MEDS: ATENOLOL 50 MG TABLET (FP) PO SCH ×2 (10:09→22:27)
[2018-07-02] MEDS: PRENATAL VITAMINS W/ FOLIC ACID TABLET (FP) PO SCH (10:09)
--- NOTE | 2018-07-02 12:31 | PN ---
S CIWA - CIWA Score Nausea/Vomitin Muscle Tremors: 2 Anxiety: 2 Agitation: 2 Paroxysmal Sweats: 2 Orientation: 0-Oriented Tacttile Disturbances: 1-Very Mild Itch/Numbness Auditory Disturbances: 0-None Visual Disturbances: 0-None Headache: 2-Mild CIWA-Ar Total Score: 13 S Progress Note (SOAP) Subjective: Interrupted sleep, muscle aches and anxiety Objective: 07/02/18 12:30 Vital Signs - 8 hr 07/02/18 07/02/18 06:40 09:25 Temperature 96.9 F L 97.8 F Pulse Rate 52 L 59 L Respiratory 18 18 Rate Blood Pressure 134/73 152/84 Laboratory Last Values WBC 5.8 K/mm3 (4.0-10.0) 07/01/18 08:00 RBC 4.66 M/mm3 (4.00-5.60) 07/01/18 08:00 Hgb 13.0 GM/dL (11.7-16.9) 07/01/18 08:00 Hct 40.0 % (35.4-49) 07/01/18 08:00 MCV 85.9 fl (80-96) 07/01/18 08:00 MCH 28.0 pg (25.7-33.7) 07/01/18 08:00 MCHC 32.6 g/dl (32.0-35.9) 07/01/18 08:00 RDW 15.1 % (11.9-15.9) 07/01/18 08:00 Plt Count 185 K/MM3 (134-434) D 07/01/18 08:00 MPV 9.0 fl (7.5-11.1) 07/01/18 08:00 Sodium 136 mmol/L (136-145) 07/01/18 08:00 Potassium 4.3 mmol/L (3.5-5.1) 07/01/18 08:00 Chloride 104 mmol/L (98-107) 07/01/18 08:00 Carbon Dioxide 24 mmol/L (21-32) 07/01/18 08:00 Anion Gap 9 MMOL/L (8-16) 07/01/18 08:00 BUN 16 mg/dL (7-18) 07/01/18 08:00 Creatinine 1.2 mg/dL (0.55-1.3) 07/01/18 08:00 Creat Clearance w eGFR 58.71 (>60) 07/01/18 08:00 Random Glucose 91 mg/dL (74-106) 07/01/18 08:00 Calcium 8.7 mg/dL (8.5-10.1) 07/01/18 08:00 Total Bilirubin 0.4 mg/dL (0.2-1) 07/01/18 08:00 AST 22 U/L (15-37) 07/01/18 08:00 ALT 19 U/L (13-61) 07/01/18 08:00 Alkaline Phosphatase 79 U/L (45-117) 07/01/18 08:00 Total Protein 7.1 g/dl (6.4-8.2) 07/01/18 08:00 Albumin 3.3 g/dl (3.4-5.0) L 07/01/18 08:00 Urine Color Straw 06/30/18 10:00 Urine Appearance Clear 06/30/18 10:00 Urine pH 7.0 (5.0-8.0) D 06/30/18 10:00 Ur Specific [place] 1.006 (1.010-1.035) L 06/30/18 10:00 Urine Protein Negative (NEGATIVE) 06/30/18 10:00 Urine Glucose (UA) Negative (NEGATIVE) 06/30/18 10:00 Urine Ketones Negative (NEGATIVE) 06/30/18 10:00 Urine Blood Negative (NEGATIVE) 06/30/18 10:00 Urine Nitrite Negative (NEGATIVE) 06/30/18 10:00 Urine Bilirubin Negative (<2.0 mg/dL) 06/30/18 10:00 Urine Urobilinogen Negative mg/dL (0.2-1.0) 06/30/18 10:00 Ur Leukocyte Esterase Negative (NEGATIVE) 06/30/18 10:00 RPR Titer Nonreactive (NONREACTIVE) 07/01/18 08:00 Labs noted Assessment: 07/02/18 12:30 Withdrawal sx Plan: Continue detox
[2018-07-02] MEDS: THIAMINE HCL 100 MG TABLET (FP) PO SCH (22:26)
[2018-07-02] MEDS: chlordiazePOXIDE 5 MG CAPSULE PO SCH (22:26)
[2018-07-03] MEDS: chlordiazePOXIDE 5 MG CAPSULE PO SCH ×3 (05:36→17:02)
[2018-07-03] MEDS: ATENOLOL 50 MG TABLET (FP) PO SCH ×2 (10:14→22:18)
[2018-07-03] MEDS: PRENATAL VITAMINS W/ FOLIC ACID TABLET (FP) PO SCH (10:14)
--- NOTE | 2018-07-03 16:41 | PN ---
BHS Progress Note (SOAP) Subjective: sleep disturbance sweats Objective: 07/03/18 16:39 A & O x 3 Met in day room, in no acute distress Vital Signs Temperature 98.0 F 07/03/18 13:07 Pulse Rate 56 L 07/03/18 13:07 Respiratory Rate 18 07/03/18 13:07 Blood Pressure 162/77 07/03/18 13:07 O2 Sat by Pulse Oximetry (%) Assessment: 07/03/18 16:40 withdrawal sx Elevated Bp Plan: continue detox continue anti- hypertensives continue hydration
[2018-07-03] MEDS: THIAMINE HCL 100 MG TABLET (FP) PO SCH (22:18)
[2018-07-03] MEDS: chlordiazePOXIDE HCL 10 MG CAPSULE PO SCH (22:18)
[2018-07-04] MEDS: chlordiazePOXIDE HCL 10 MG CAPSULE PO SCH ×2 (05:30→10:02)
[2018-07-04 09:22] VITALS: BP 161/79; PULSE 46; TEMP 96.8
[2018-07-04] MEDS: PRENATAL VITAMINS W/ FOLIC ACID TABLET (FP) PO SCH (10:02)
[2018-07-04] MEDS: ATENOLOL 50 MG TABLET (FP) PO SCH (10:02)
--- NOTE | 2018-07-04 11:12 | DS ---
[facility] Detox Discharge Summary Admission Date: 06/30/18 - History Present History: Alcohol Dependence Pertinent Past History: HTN PPD Positive - Physical Exam Results Vital Signs: Vital Signs Temperature 96.8 F L 07/04/18 09:21 Pulse Rate 46 L 07/04/18 09:21 Respiratory Rate 18 07/04/18 09:21 Blood Pressure 161/79 07/04/18 09:21 O2 Sat by Pulse Oximetry (%) Pertinent Admission Physical Exam Findings: Withdrawal sxs Laboratory Tests 06/30/18 07/01/18 07/01/18 10:00 08:00 08:00 WBC 5.8 RBC 4.66 Hgb 13.0 Hct 40.0 MCV 85.9 MCH 28.0 MCHC 32.6 RDW 15.1 Plt Count 185 D MPV 9.0 Sodium 136 Potassium 4.3 Chloride 104 Carbon Dioxide 24 Anion Gap 9 BUN 16 Creatinine 1.2 Creat Clearance w eGFR 58.71 Random Glucose 91 Calcium 8.7 Total Bilirubin 0.4 AST 22 ALT 19 Alkaline Phosphatase 79 Total Protein 7.1 Albumin 3.3 L Urine Color Straw Urine Appearance Clear Urine pH 7.0 D Ur Specific [place] 1.006 L Urine Protein Negative Urine Glucose (UA) Negative Urine Ketones Negative Urine Blood Negative Urine Nitrite Negative Urine Bilirubin Negative Urine Urobilinogen Negative Ur Leukocyte Esterase Negative RPR Titer 07/01/18 08:00 WBC RBC Hgb Hct MCV MCH MCHC RDW Plt Count MPV Sodium Potassium Chloride Carbon Dioxide Anion Gap BUN Creatinine Creat Clearance w eGFR Random Glucose Calcium Total Bilirubin AST ALT Alkaline Phosphatase Total Protein Albumin Urine Color Urine Appearance Urine pH Ur Specific [place] Urine Protein Urine Glucose (UA) Urine Ketones Urine Blood Urine Nitrite Urine Bilirubin Urine Urobilinogen Ur Leukocyte Esterase RPR Titer Nonreactive Labs reviewed: GFR 58.71 (encouraged PO water hydration) - Treatment Hospital Course: Detox Protocol Followed, Detoxed Safely, Responded well, Discharged Condition Good - Medication Discharge Medications: Ambulatory Orders Atenolol [Tenormin] 50 mg PO BID 06/30/18 - Diagnosis (1) Alcohol dependence with uncomplicated withdrawal Current Visit: Yes Status: Acute (2) Essential hypertension Current Visit: Yes Status: Chronic (3) Acute prerenal azotemia Current Visit: No Status: Acute (4) Positive PPD Current Visit: Yes Status: Chronic - AMA Did Patient Leave Against Medical Advice: No (F/U with your PCP within 1-2 weeks )
== END 2018-07-04 14:00 | disposition home or self-care (01) | DRG 897 ==
LOC: YASAS 14:48 → Y3N 19:24
PROC: HZ2ZZZZ Detoxification Services for Substance Abuse Treatment (ICD-10-PCS; principal; 2018-06-30)
DX: F10.230 Alcohol dependence with withdrawal, uncomplicated (principal); I10 Essential (primary) hypertension; E86.0 Dehydration; R79.89 Other specified abnormal findings of blood chemistry; R76.11 Nonspecific reaction to tuberculin skin test without active tuberculosis; D22.9 Melanocytic nevi, unspecified; Z87.438 Personal history of other diseases of male genital organs
CPT/HCPCS: 36415; 80053; 81003; 85027; 86593; 93005; 93010

== ENCOUNTER 2018-08-14 12:15 | Inpatient (IN) | payer OTHER ==
[2018-08-14 13:50] VITALS: BMI 26.8
--- NOTE | 2018-08-14 14:22 | HP ---
CIWA Score Nausea/Vomitin Muscle Tremors: 2 Anxiety: 2 Agitation: 2 Paroxysmal Sweats: 1-Minimal Palms Moist Orientation: 0-Oriented Tacttile Disturbances: 1-Very Mild Itch/Numbness Auditory Disturbances: 1-Very Mild Visual Disturbances: 0-None Headache: 2-Mild CIWA-Ar Total Score: 13 - Admission Criteria [facility] Guidelines: Admission for Medically Managed Detox: Requires at least one of the followin. CIWA greater than 12 2. Seizures within the past 24 hours 3. Delirium tremens within the past 24 hours 4. Hallucinations within the past 24 hours 5. Acute intervention needed for co occurring medical disorder 6. Acute intervention needed for co occurring psychiatric disorder 7. Severe withdrawal that cannot be handled at a lower level of care (continued vomiting, continued diarrhea, abnormal vital signs) requiring intravenous medication and/or fluids 8. Patient presents the following: CIWA greater than 12 Admission Criteria Met: Admission criteria met Admission ROS BHS - HPI Chief Complaint: i need help to stop alcohol Allergies/Adverse Reactions: Allergies Allergy/AdvReac Type Severity Reaction Status Date / Time No Known Allergies Allergy Verified 08/14/18 14:14 History of Present Illness: this 78 years old male with alcohol dependence,seeking detox,withdrawal symptom, last detox [facility] 06/30/18 to 07/03/18 syncope alcohol related hypertension on med longest period of sobriety 3 years multiple admissions in detox,but keep relapsing head injury with bleeding left 2012 treated at [facility] right tear duct injury and repair in the past Exam Limitations: No Limitations - Ebola screening Have you been sick,other than usual withdrawal symptoms: No - Review of Systems Constitutional: Loss of Appetite, Malaise, Night Sweats, Changes in sleep, Weakness EENT: reports: Nose Congestion Respiratory: reports: No Symptoms reported Cardiac: reports: No Symptoms Reported GI: reports: Nausea, Vomiting, Abdominal cramping : reports: No Symptoms Reported Musculoskeletal: reports: Back Pain, Muscle Pain Integumentary: reports: Dryness Neuro: reports: Headache, Tremors Endocrine: reports: No Symptoms Reported Hematology: reports: No Symptoms Reported Psychiatric: reports: No Sypmtoms Reported, Judgement Intact, Mood/Affect Appropiate, Orientated x3 Patient History - Patient Medical History Hx Anemia: No Hx Asthma: No Hx Chronic Obstructive Pulmonary Disease (COPD): No Hx Cancer: No Hx Cardiac Disorders: No Hx Congestive Heart Failure: No Hx Hypertension: Yes (on med) Hx Hypercholesterolemia: No Hx Pacemaker: No HX Cerebrovascular Accident: No Hx Seizures: No Hx Dementia: No Hx Diabetes: No Hx Gastrointestinal Disorders: No Hx Liver Disease: No Hx Genitourinary Disorders: No Hx Sexually Transmitted Disorders: Yes (gonorrhea at age 19) Hx Renal Disease (ESRD): No Hx Thyroid Disease: No Hx Human Immunodeficiency Virus (HIV): No (last 2017 negative) Hx Hepatitis C: No Hx Depression: No Hx Suicide Attempt: No Hx Bipolar Disorder: No Hx Schizophrenia: No Other Medical History: no suicidal,no homicidal - Patient Surgical History Past Surgical History: Yes Hx Neurologic Surgery: Yes (head trauma ([facility])) Hx Cataract Extraction: No Hx Cardiac Surgery: No Hx Lung Surgery: No Hx Breast Surgery: No Hx Breast Biopsy: No Hx Abdominal Surgery: No Hx Appendectomy: No Hx Cholecystectomy: No Hx Genitourinary Surgery: No Hx Orthopedic Surgery: No Other Surgical History: ,tonsilectomy 25yrs,SURGERY OF TEAR DUCT RIGHT 40 YEARS AGO Anesthesia Reaction: No - PPD History Previous Implant?: Yes Documented Results: Positive w/proof Implanted On Prior [facility] Admission?: No PPD to be Administered?: No - Smoking Cessation Smoking history: Never smoked Have you smoked in the past 12 months: No Aproximately how many cigarettes per day: 0 Cigars Per Day: 0 Hx Chewing Tobacco Use: No Initiated information on smoking cessation: No - Substance & Tx. History Hx Alcohol Use: Yes Hx Substance Use: No Substance Use Type: Alcohol Hx Substance Use Treatment: Yes ([facility] 06/30/18 to 07/04/18 [facility]) - Substances Abused Alcohol Route: Oral Frequency: Daily Amount used: 2 pints rum/ 2 24 oz beers Age of first use: 19 Date of Last Use: 08/14/18 Family Disease History - Family Disease History Family Disease History: Diabetes: Mother (), Other: Father (ALCOHOL, ) Admission Physical Exam S - Vital Signs Vital Signs: Vital Signs - 24 hr 08/14/18 13:19 Temperature 96.3 F L Pulse Rate 53 L Respiratory 18 Rate Blood Pressure 153/79 - Physical General Appearance: Yes: Moderate Distress, Tremorous, Irritable, Sweating, Anxious HEENTM: Yes: Normal ENT Inspection, MIRIAN, Pharynx Normal Respiratory: Yes: Lungs Clear, Normal Breath Sounds, No Respiratory Distress Neck: Yes: Within Normal Limits, Supple, Trachea in good position Breast: Yes: Within Normal Limits Cardiology: Yes: Within Normal Limits, Regular Rhythm, Regular Rate, S1, S2 Abdominal: Yes: Within Normal Limits, Normal Bowel Sounds, Non Tender, Flat, Soft Genitourinary: Yes: Within Normal Limits Back: Yes: Muscle Spasm Musculoskeletal: Yes: full range of Motion, Back pain, Muscle Pain Extremities: Yes: Tremors Neurological: Yes: belt fixer II-XII NML intact, Fully Oriented, Alert, Motor Strength 5/5 Integumentary: Yes: Dry Lymphatic: Yes: Within Normal Limits - Diagnostic (1) Alcohol dependence with uncomplicated withdrawal Current Visit: No Status: Acute (2) Dehydration Current Visit: No Status: Acute (3) Essential hypertension Current Visit: No Status: Chronic (4) Positive PPD Current Visit: No Status: Chronic (5) Syncope Current Visit: No Status: Suspected Qualifiers: Syncope type: unspecified Qualified Code(s): R55 - Syncope and collapse Cleared for Admission [facility] - Detox or Rehab [facility] Level of Care: Medically Managed Detox Regimen/Protocol: Librium [facility] Breath Alcohol Content Breath Alcohol Content: 0.98 Urine Drug Screen - Results Drug Screen Negative: Yes
[2018-08-14] MEDS ORDERED: MENTHOL/PHENOL 1 EACH UD MM PRN (14:31)
[2018-08-14] MEDS ORDERED: MAG HYDROX/AL HYDROX/SIMETH 30 ML UNIT-DOSE CUP PO PRN (14:31)
[2018-08-14] MEDS ORDERED: LOPERAMIDE HCL 2 MG CAPSULE PO PRN (14:31)
[2018-08-14] MEDS ORDERED: ACETAMINOPHEN 325 MG TABLET (FP) PO PRN (14:31)
[2018-08-14] MEDS ORDERED: IBUPROFEN 400 MG TABLET (FP) PO PRN (14:31)
[2018-08-14] MEDS ORDERED: guaiFENesin/D-METHORPHAN HB 10 ML UNIT-DOSE CUPS PO PRN (14:31)
[2018-08-14] MEDS ORDERED: hydrOXYzine PAMOATE 25 MG CAPSULE (FP) PO PRN (14:31)
[2018-08-14] MEDS ORDERED: MAGNESIUM HYDROX 2400MG/30ML ORAL SUSPENSION 30 ML CUP PO PRN (14:31)
[2018-08-14] MEDS ORDERED: P-EPHED 60MG/TRIPROLIDI 2.5MG TABLET PO PRN (14:31)
[2018-08-14] MEDS ORDERED: MAGNESIUM CITRATE 300 ML BOTTLE PO PRN (14:31)
[2018-08-14] MEDS ORDERED: chlordiazePOXIDE HCL 25 MG CAPSULE PO PRN (15:44)
[2018-08-14] MEDS: chlordiazePOXIDE HCL 25 MG CAPSULE PO SCH ×2 (17:08→22:27)
[2018-08-14 17:26] LABS: URINE APPEARANCE CLEAR; URINE BILIRUBIN NEGATIVE (<2.0 mg/dL); URINE COLOR COLORLESS; URINE GLUCOSE (UA) NEGATIVE (NEGATIVE); URINE KETONE NEGATIVE (NEGATIVE); URINE LEUK ESTERASE NEGATIVE (NEGATIVE); URINE NITRITE NEGATIVE (NEGATIVE); URINE PROTEIN NEGATIVE (NEGATIVE); URINE UROBILINOGEN NEGATIVE mg/dL (0.2-1.0)
[2018-08-14] MEDS ORDERED: MELATONIN 5 MG TABLETS PO PRN (22:00)
[2018-08-14] MEDS: THIAMINE HCL 100 MG TABLET (FP) PO SCH (22:26)
[2018-08-14] MEDS: ATENOLOL 50 MG TABLET (FP) PO SCH (22:27)
[2018-08-15] MEDS: chlordiazePOXIDE HCL 25 MG CAPSULE PO SCH ×4 (06:12→22:14)
[2018-08-15 10:05] LABS: HEMATOCRIT 40.2 % (35.4-49); HEMOGLOBIN 12.7 GM/dL (11.7-16.9); MCH 27.4 pg (25.7-33.7); MCHC 31.5 g/dl (32.0-35.9); MEAN CELL VOLUME 87.1 fl (80-96); PLATELET COUNT 149 K/MM3 (134-434); RBC 4.62 M/mm3 (4.00-5.60); RDW 14.5 % (11.9-15.9); WHITE BLOOD COUNT 5.6 K/mm3 (4.0-10.0)
[2018-08-15] MEDS: ATENOLOL 50 MG TABLET (FP) PO SCH ×2 (10:16→22:14)
[2018-08-15] MEDS: PRENATAL VITAMINS W/ FOLIC ACID TABLET (FP) PO SCH (10:16)
[2018-08-15 10:57] LABS: ALBUMIN 3.7 g/dl (3.4-5.0); ALK PHOS 91 U/L (45-117); ANION GAP 11 MMOL/L (8-16); BILIRUBIN,TOTAL 0.3 mg/dL (0.2-1); BLOOD UREA NITROGEN 15 mg/dL (7-18); CALCIUM 8.7 mg/dL (8.5-10.1); CHLORIDE 106 mmol/L (98-107); CO2 25 mmol/L (21-32); CREATININE 1.3 mg/dL (0.55-1.3); GLUCOSE,RANDOM 75 mg/dL (74-106); POTASSIUM 4.5 mmol/L (3.5-5.1); SGOT/AST 25 U/L (15-37); SGPT/ALT 37 U/L (13-61); SODIUM 141 mmol/L (136-145); TOT PROT 7.5 g/dl (6.4-8.2)
--- NOTE | 2018-08-15 11:27 | PN ---
S CIWA - CIWA Score Nausea/Vomitin-Mild Nausea/No Vomiting Muscle Tremors: 3 Anxiety: 1-Mildly Anxious Agitation: 2 Paroxysmal Sweats: 1-Minimal Palms Moist Orientation: 0-Oriented Tacttile Disturbances: 1-Very Mild Itch/Numbness Auditory Disturbances: 0-None Visual Disturbances: 0-None Headache: 1-Very Mild CIWA-Ar Total Score: 10 S Progress Note (SOAP) Subjective: tremor sweat gi distress trouble sleep at night Objective: 08/15/18 11:26 Vital Signs Temperature 97.0 F L 08/15/18 09:35 Pulse Rate 56 L 08/15/18 09:35 Respiratory Rate 18 08/15/18 09:35 Blood Pressure 141/71 08/15/18 09:35 O2 Sat by Pulse Oximetry (%) Laboratory Last Values WBC 5.6 K/mm3 (4.0-10.0) 08/15/18 05:45 RBC 4.62 M/mm3 (4.00-5.60) 08/15/18 05:45 Hgb 12.7 GM/dL (11.7-16.9) 08/15/18 05:45 Hct 40.2 % (35.4-49) 08/15/18 05:45 MCV 87.1 fl (80-96) 08/15/18 05:45 MCH 27.4 pg (25.7-33.7) 08/15/18 05:45 MCHC 31.5 g/dl (32.0-35.9) L 08/15/18 05:45 RDW 14.5 % (11.9-15.9) 08/15/18 05:45 Plt Count 149 K/MM3 (134-434) 08/15/18 05:45 MPV 9.0 fl (7.5-11.1) 08/15/18 05:45 Sodium 141 mmol/L (136-145) 08/15/18 05:45 Potassium 4.5 mmol/L (3.5-5.1) 08/15/18 05:45 Chloride 106 mmol/L (98-107) 08/15/18 05:45 Carbon Dioxide 25 mmol/L (21-32) 08/15/18 05:45 Anion Gap 11 MMOL/L (8-16) 08/15/18 05:45 BUN 15 mg/dL (7-18) 08/15/18 05:45 Creatinine 1.3 mg/dL (0.55-1.3) 08/15/18 05:45 Creat Clearance w eGFR 53.53 (>60) 08/15/18 05:45 Random Glucose 75 mg/dL (74-106) 08/15/18 05:45 Calcium 8.7 mg/dL (8.5-10.1) 08/15/18 05:45 Total Bilirubin 0.3 mg/dL (0.2-1) 08/15/18 05:45 AST 25 U/L (15-37) 08/15/18 05:45 ALT 37 U/L (13-61) 08/15/18 05:45 Alkaline Phosphatase 91 U/L (45-117) 08/15/18 05:45 Total Protein 7.5 g/dl (6.4-8.2) 08/15/18 05:45 Albumin 3.7 g/dl (3.4-5.0) 08/15/18 05:45 Urine Color Colorless 08/14/18 15:55 Urine Appearance Clear 08/14/18 15:55 Urine pH 6.0 (5.0-8.0) 08/14/18 15:55 Ur Specific [place] 1.003 (1.010-1.035) L 08/14/18 15:55 Urine Protein Negative (NEGATIVE) 08/14/18 15:55 Urine Glucose (UA) Negative (NEGATIVE) 08/14/18 15:55 Urine Ketones Negative (NEGATIVE) 08/14/18 15:55 Urine Blood Negative (NEGATIVE) 08/14/18 15:55 Urine Nitrite Negative (NEGATIVE) 08/14/18 15:55 Urine Bilirubin Negative (<2.0 mg/dL) 08/14/18 15:55 Urine Urobilinogen Negative mg/dL (0.2-1.0) 08/14/18 15:55 Ur Leukocyte Esterase Negative (NEGATIVE) 08/14/18 15:55 lab noted Assessment: 08/15/18 11:26 withdrawal sx Plan: continue detox
--- NOTE | 2018-08-15 15:18 | CONSULT ---
[facility] Psychiatric Consult - Data Date of interview: 08/15/18 Admission source: [facility] Identifying data: Patient is a 78 year old single male, father of one, retired ( worked for [employer]), is currently homeless, and is supported by SSI/SSD. He is also supported by the [employer] program. Patient admitted to for alcohol dependence. Substance Abuse History: - Smoking Cessation. Smoking history: Never smoked. Have you smoked in the past 12 months: No. Aproximately how many cigarettes per day: 0. Cigars Per Day: 0. Hx Chewing Tobacco Use: No. Initiated information on smoking cessation: No. - Substance & Tx. History. Hx Alcohol Use: Yes. Hx Substance Use: No. Substance Use Type: Alcohol. Hx Substance Use Treatment: Yes ([facility] 06/30/18 to 07/04/18 [facility]). - Substances Abused. Alcohol. Route: Oral. Frequency: Daily. Amount used: 2 pints rum/ 2 24 oz beers. Age of first use: 19. Date of Last Use: 08/14/18 Medical History: Significant for hypertension, PPD+, history of craniotomy ( work related injury- pipe fell causing head trauma), tonsillectomy and surgery right tear duct. Psychiatric History: Patient denies h/o psychiatric hospitalization, outpatient care, and suicide attempt. At present, he reports feeling down secondary to his drinking. He is interested in being admitted to rehab. Patient denies thoughts or urges to hurt himself or others. Physical/Sexual Abuse/Trauma History: denies. Mental Status Exam - Mental Status Exam Alert and Oriented to: Time, Place, Person Cognitive Function: Good Patient Appearance: Well Groomed Mood: Euthymic Affect: Mood Congruent Patient Behavior: Cooperative Speech Pattern: Appropriate Voice Loudness: Moderately Soft/Quiet Thought Process: Intact, Goal Oriented Hallucinations: Denies Suicidal Ideation: Denies Homicidal Ideation: Denies Insight/Judgement: Poor Sleep: Fair Appetite: Fair Muscle strength/Tone: Normal Gait/Station: Normal Psychiatric Findings - Problem List ([place] 1, 2,3) (1) Alcohol dependence with uncomplicated withdrawal Current Visit: Yes Status: Acute (2) Alcohol-induced mood disorder Current Visit: Yes Status: Acute - Initial Treatment Plan Initial Treatment Plan: Psychoeducation provided. Detoxification in progress. Observation.
[2018-08-15] MEDS: THIAMINE HCL 100 MG TABLET (FP) PO SCH (22:14)
[2018-08-16] MEDS: chlordiazePOXIDE HCL 25 MG CAPSULE PO SCH ×2 (05:51→10:03)
[2018-08-16] MEDS: PRENATAL VITAMINS W/ FOLIC ACID TABLET (FP) PO SCH (10:03)
[2018-08-16] MEDS: ATENOLOL 50 MG TABLET (FP) PO SCH ×2 (10:03→22:39)
--- NOTE | 2018-08-16 11:08 | PN ---
S CIWA - CIWA Score Nausea/Vomitin-No Nausea/No Vomiting Muscle Tremors: 3 Anxiety: 1-Mildly Anxious Agitation: 2 Paroxysmal Sweats: 1-Minimal Palms Moist Orientation: 0-Oriented Tacttile Disturbances: 1-Very Mild Itch/Numbness Auditory Disturbances: 0-None Visual Disturbances: 0-None Headache: 1-Very Mild CIWA-Ar Total Score: 9 BHS Progress Note (SOAP) Subjective: tremor sweat headaches restlessness anxiety trouble sleep at night Objective: 08/16/18 11:10 Vital Signs Temperature 97.0 F L 08/16/18 09:48 Pulse Rate 58 L 08/16/18 09:48 Respiratory Rate 18 08/16/18 09:48 Blood Pressure 157/71 08/16/18 09:48 O2 Sat by Pulse Oximetry (%) Laboratory Last Values WBC 5.6 K/mm3 (4.0-10.0) 08/15/18 05:45 RBC 4.62 M/mm3 (4.00-5.60) 08/15/18 05:45 Hgb 12.7 GM/dL (11.7-16.9) 08/15/18 05:45 Hct 40.2 % (35.4-49) 08/15/18 05:45 MCV 87.1 fl (80-96) 08/15/18 05:45 MCH 27.4 pg (25.7-33.7) 08/15/18 05:45 MCHC 31.5 g/dl (32.0-35.9) L 08/15/18 05:45 RDW 14.5 % (11.9-15.9) 08/15/18 05:45 Plt Count 149 K/MM3 (134-434) 08/15/18 05:45 MPV 9.0 fl (7.5-11.1) 08/15/18 05:45 Sodium 141 mmol/L (136-145) 08/15/18 05:45 Potassium 4.5 mmol/L (3.5-5.1) 08/15/18 05:45 Chloride 106 mmol/L (98-107) 08/15/18 05:45 Carbon Dioxide 25 mmol/L (21-32) 08/15/18 05:45 Anion Gap 11 MMOL/L (8-16) 08/15/18 05:45 BUN 15 mg/dL (7-18) 08/15/18 05:45 Creatinine 1.3 mg/dL (0.55-1.3) 08/15/18 05:45 Creat Clearance w eGFR 53.53 (>60) 08/15/18 05:45 Random Glucose 75 mg/dL (74-106) 08/15/18 05:45 Calcium 8.7 mg/dL (8.5-10.1) 08/15/18 05:45 Total Bilirubin 0.3 mg/dL (0.2-1) 08/15/18 05:45 AST 25 U/L (15-37) 08/15/18 05:45 ALT 37 U/L (13-61) 08/15/18 05:45 Alkaline Phosphatase 91 U/L (45-117) 08/15/18 05:45 Total Protein 7.5 g/dl (6.4-8.2) 08/15/18 05:45 Albumin 3.7 g/dl (3.4-5.0) 08/15/18 05:45 Urine Color Colorless 08/14/18 15:55 Urine Appearance Clear 08/14/18 15:55 Urine pH 6.0 (5.0-8.0) 08/14/18 15:55 Ur Specific [place] 1.003 (1.010-1.035) L 08/14/18 15:55 Urine Protein Negative (NEGATIVE) 08/14/18 15:55 Urine Glucose (UA) Negative (NEGATIVE) 08/14/18 15:55 Urine Ketones Negative (NEGATIVE) 08/14/18 15:55 Urine Blood Negative (NEGATIVE) 08/14/18 15:55 Urine Nitrite Negative (NEGATIVE) 08/14/18 15:55 Urine Bilirubin Negative (<2.0 mg/dL) 08/14/18 15:55 Urine Urobilinogen Negative mg/dL (0.2-1.0) 08/14/18 15:55 Ur Leukocyte Esterase Negative (NEGATIVE) 08/14/18 15:55 RPR Titer Nonreactive (NONREACTIVE) 08/15/18 05:45 lab noted Assessment: 08/16/18 11:11 withdrawal sx Plan: continue detox
[2018-08-16] MEDS: chlordiazePOXIDE 5 MG CAPSULE PO SCH ×2 (17:50→22:39)
[2018-08-16] MEDS: THIAMINE HCL 100 MG TABLET (FP) PO SCH (22:39)
[2018-08-17] MEDS: chlordiazePOXIDE 5 MG CAPSULE PO SCH ×2 (05:18→10:21)
[2018-08-17] MEDS: PRENATAL VITAMINS W/ FOLIC ACID TABLET (FP) PO SCH (10:20)
[2018-08-17] MEDS: ATENOLOL 50 MG TABLET (FP) PO SCH ×2 (10:21→23:55)
--- NOTE | 2018-08-17 14:02 | DS ---
[facility] Detox Discharge Summary Admission Date: 08/14/18 Discharge Date: 08/17/18 - History Present History: Alcohol Dependence Additional Comments: 78 years old male admitted on 08/14/18 for alcohol withdrawal sx preferred to go to rehab today that a bed available today at [facility] patient is alert oriented x 3 no acute distress aftercare [facility] - Physical Exam Results Vital Signs: Vital Signs Temperature 97.3 F L 08/17/18 13:40 Pulse Rate 63 08/17/18 13:40 Respiratory Rate 18 08/17/18 13:40 Blood Pressure 122/63 08/17/18 13:40 O2 Sat by Pulse Oximetry (%) Pertinent Admission Physical Exam Findings: alcohol withdrawal sx Vital Signs Temperature 97.3 F L 08/17/18 13:40 Pulse Rate 63 08/17/18 13:40 Respiratory Rate 18 08/17/18 13:40 Blood Pressure 122/63 08/17/18 13:40 O2 Sat by Pulse Oximetry (%) Laboratory Last Values WBC 5.6 K/mm3 (4.0-10.0) 08/15/18 05:45 RBC 4.62 M/mm3 (4.00-5.60) 08/15/18 05:45 Hgb 12.7 GM/dL (11.7-16.9) 08/15/18 05:45 Hct 40.2 % (35.4-49) 08/15/18 05:45 MCV 87.1 fl (80-96) 08/15/18 05:45 MCH 27.4 pg (25.7-33.7) 08/15/18 05:45 MCHC 31.5 g/dl (32.0-35.9) L 08/15/18 05:45 RDW 14.5 % (11.9-15.9) 08/15/18 05:45 Plt Count 149 K/MM3 (134-434) 08/15/18 05:45 MPV 9.0 fl (7.5-11.1) 08/15/18 05:45 Sodium 141 mmol/L (136-145) 08/15/18 05:45 Potassium 4.5 mmol/L (3.5-5.1) 08/15/18 05:45 Chloride 106 mmol/L (98-107) 08/15/18 05:45 Carbon Dioxide 25 mmol/L (21-32) 08/15/18 05:45 Anion Gap 11 MMOL/L (8-16) 08/15/18 05:45 BUN 15 mg/dL (7-18) 08/15/18 05:45 Creatinine 1.3 mg/dL (0.55-1.3) 08/15/18 05:45 Creat Clearance w eGFR 53.53 (>60) 08/15/18 05:45 Random Glucose 75 mg/dL (74-106) 08/15/18 05:45 Calcium 8.7 mg/dL (8.5-10.1) 08/15/18 05:45 Total Bilirubin 0.3 mg/dL (0.2-1) 08/15/18 05:45 AST 25 U/L (15-37) 08/15/18 05:45 ALT 37 U/L (13-61) 08/15/18 05:45 Alkaline Phosphatase 91 U/L (45-117) 08/15/18 05:45 Total Protein 7.5 g/dl (6.4-8.2) 08/15/18 05:45 Albumin 3.7 g/dl (3.4-5.0) 08/15/18 05:45 Urine Color Colorless 08/14/18 15:55 Urine Appearance Clear 08/14/18 15:55 Urine pH 6.0 (5.0-8.0) 08/14/18 15:55 Ur Specific [place] 1.003 (1.010-1.035) L 08/14/18 15:55 Urine Protein Negative (NEGATIVE) 08/14/18 15:55 Urine Glucose (UA) Negative (NEGATIVE) 08/14/18 15:55 Urine Ketones Negative (NEGATIVE) 08/14/18 15:55 Urine Blood Negative (NEGATIVE) 08/14/18 15:55 Urine Nitrite Negative (NEGATIVE) 08/14/18 15:55 Urine Bilirubin Negative (<2.0 mg/dL) 08/14/18 15:55 Urine Urobilinogen Negative mg/dL (0.2-1.0) 08/14/18 15:55 Ur Leukocyte Esterase Negative (NEGATIVE) 08/14/18 15:55 RPR Titer Nonreactive (NONREACTIVE) 08/15/18 05:45 lab noted - Treatment Hospital Course: Detox Protocol Followed, Detoxed Safely, Responded well, Discharged Condition Good, Rehab Referral Accepted Patient has Accepted a Rehab Referral to: [facility] - Medication Discharge Medications: Ambulatory Orders Atenolol [Tenormin] 50 mg PO BID 06/30/18 - Diagnosis (1) Essential hypertension Current Visit: Yes Status: Chronic (2) Alcohol dependence with uncomplicated withdrawal Current Visit: Yes Status: Acute (3) Positive PPD Current Visit: No Status: Resolved (4) Alcohol-induced mood disorder Current Visit: Yes Status: Suspected - AMA Did Patient Leave Against Medical Advice: No
[2018-08-17] MEDS: chlordiazePOXIDE HCL 10 MG CAPSULE PO SCH ×2 (17:34→23:55)
[2018-08-17] MEDS: THIAMINE HCL 100 MG TABLET (FP) PO SCH (23:55)
[2018-08-18] MEDS: chlordiazePOXIDE HCL 10 MG CAPSULE PO SCH ×2 (05:35→10:26)
--- NOTE | 2018-08-18 08:21 | DS ---
[facility] Detox Discharge Summary Admission Date: 08/14/18 Discharge Date: 08/18/18 - History Present History: Alcohol Dependence - Physical Exam Results Vital Signs: Vital Signs Temperature 96.3 F L 08/18/18 06:00 Pulse Rate 54 L 08/18/18 06:00 Respiratory Rate 18 08/18/18 06:00 Blood Pressure 153/80 08/18/18 06:00 O2 Sat by Pulse Oximetry (%) - Treatment Hospital Course: Detox Protocol Followed, Detoxed Safely, Responded well, Discharged Condition Good, Rehab Referral Accepted - Medication Discharge Medications: Ambulatory Orders Atenolol [Tenormin] 50 mg PO BID 06/30/18 - Diagnosis (1) Alcohol dependence with uncomplicated withdrawal Current Visit: Yes Status: Chronic (2) History of craniotomy Current Visit: No Status: Chronic (3) History of head injury Current Visit: No Status: Chronic (4) Essential hypertension Current Visit: Yes Status: Chronic (5) Alcohol-induced mood disorder Current Visit: Yes Status: Suspected (6) Dehydration Current Visit: No Status: Acute (7) Numerous skin moles Current Visit: No Status: Chronic (8) Positive PPD Current Visit: No Status: Resolved - AMA Did Patient Leave Against Medical Advice: No (referred to rehab)
[2018-08-18 09:15] VITALS: BP 155/76; PULSE 55; TEMP 97.6
[2018-08-18] MEDS: PRENATAL VITAMINS W/ FOLIC ACID TABLET (FP) PO SCH (10:26)
[2018-08-18] MEDS: ATENOLOL 50 MG TABLET (FP) PO SCH (10:26)
== END 2018-08-18 12:40 | disposition home or self-care (01) | DRG 897 ==
LOC: YASAS 12:15 → Y6N 15:08
PROVIDERS: ADMIT Neuromusculoskeletal Medicine & OMM; ATTEND Neuromusculoskeletal Medicine & OMM
PROC: HZ2ZZZZ Detoxification Services for Substance Abuse Treatment (ICD-10-PCS; principal; 2018-08-14)
DX: F10.230 Alcohol dependence with withdrawal, uncomplicated (principal); F10.24 Alcohol dependence with alcohol-induced mood disorder; E86.0 Dehydration; I10 Essential (primary) hypertension; D22.9 Melanocytic nevi, unspecified; R76.11 Nonspecific reaction to tuberculin skin test without active tuberculosis; Z87.828 Personal history of other (healed) physical injury and trauma; Z98.890 Other specified postprocedural states; Z86.79 Personal history of other diseases of the circulatory system
CPT/HCPCS: 36415; 80053; 81003; 85027; 86593

== ENCOUNTER 2019-05-02 10:46 | Inpatient (IN) | payer OTHER ==
[2019-05-02 12:44] VITALS: BMI 28.4
--- NOTE | 2019-05-02 13:26 | HP ---
CIWA Score Nausea/Vomitin Muscle Tremors: 2 Anxiety: 2 Agitation: 3 Paroxysmal Sweats: 1-Minimal Palms Moist Orientation: 0-Oriented Tacttile Disturbances: 1-Very Mild Itch/Numbness Auditory Disturbances: 0-None Visual Disturbances: 0-None Headache: 2-Mild CIWA-Ar Total Score: 13 - Admission Criteria OASAS Guidelines: Admission for Medically Managed Detox: Requires at least one of the followin. CIWA greater than 12 2. Seizures within the past 24 hours 3. Delirium tremens within the past 24 hours 4. Hallucinations within the past 24 hours 5. Acute intervention needed for co occurring medical disorder 6. Acute intervention needed for co occurring psychiatric disorder 7. Severe withdrawal that cannot be handled at a lower level of care (continued vomiting, continued diarrhea, abnormal vital signs) requiring intravenous medication and/or fluids 8. Admission ROS BHS - HPI Chief Complaint: i need help to stop drinking alcohol Allergies/Adverse Reactions: Allergies Allergy/AdvReac Type Severity Reaction Status Date / Time No Known Allergies Allergy Verified 05/02/19 12:36 History of Present Illness: this 78y years old male with alcohol dependence,seeking detox,withdrawal symptom ,stated seen in er last week, denied seizure denied syncope history of hypertension multiple admissions in the past,last [facility] 08/14/18 to 08/18/18 longest sobriety 6 months plan for rehab after detox Exam Limitations: No Limitations - Ebola screening Have you traveled outside of the country in the last 21 days: No Have you had contact with anyone from an Ebola affected area: No Do you have a fever: No - Review of Systems Constitutional: Loss of Appetite, Malaise, Night Sweats, Changes in sleep, Weakness EENT: reports: Nose Congestion Respiratory: reports: No Symptoms reported Cardiac: reports: No Symptoms Reported GI: reports: Nausea, Abdominal cramping : reports: No Symptoms Reported Musculoskeletal: reports: Back Pain, Muscle Pain Integumentary: reports: Dryness Neuro: reports: Headache, Tremors Endocrine: reports: No Symptoms Reported Hematology: reports: No Symptoms Reported Psychiatric: reports: No Sypmtoms Reported, Judgement Intact, Mood/Affect Appropiate, Orientated x3 Other Systems: Reviewed and Negative Patient History - Patient Medical History Hx Anemia: No Hx Asthma: No Hx Chronic Obstructive Pulmonary Disease (COPD): No Hx Cancer: No Hx Cardiac Disorders: No Hx Congestive Heart Failure: No Hx Hypertension: Yes (on med) Hx Hypercholesterolemia: No Hx Pacemaker: No HX Cerebrovascular Accident: No Hx Seizures: No Hx Dementia: No Hx Diabetes: No Hx Gastrointestinal Disorders: No Hx Liver Disease: No Hx Genitourinary Disorders: No Hx Sexually Transmitted Disorders: Yes (gonorrhea at age 19) Hx Renal Disease (ESRD): No Hx Thyroid Disease: No Hx Human Immunodeficiency Virus (HIV): No (last 2017 negative) Hx Hepatitis C: No Hx Depression: No Hx Suicide Attempt: No Hx Bipolar Disorder: No Hx Schizophrenia: No Other Medical History: no suicidal,no homicidal - Patient Surgical History Past Surgical History: Yes Hx Neurologic Surgery: Yes (head trauma ([place] [facility])) Hx Cataract Extraction: No Hx Cardiac Surgery: No Hx Lung Surgery: No Hx Breast Surgery: No Hx Breast Biopsy: No Hx Abdominal Surgery: No Hx Appendectomy: No Hx Cholecystectomy: No Hx Genitourinary Surgery: No Hx Orthopedic Surgery: No Other Surgical History: ,tonsilectomy 25yrs,SURGERY OF TEAR DUCT RIGHT 40 YEARS AGO Anesthesia Reaction: No - PPD History Previous Implant?: Yes Documented Results: Positive w/proof PPD to be Administered?: No - Smoking Cessation Smoking history: Never smoked Have you smoked in the past 12 months: No Aproximately how many cigarettes per day: 0 Cigars Per Day: 0 Hx Chewing Tobacco Use: No - Substance & Tx. History Hx Alcohol Use: Yes Hx Substance Use: No Substance Use Type: Alcohol Hx Substance Use Treatment: Yes ([facility] 08/14/18 to 08/18/18) - Substances abused Alcohol Substance route: Oral Frequency: Daily Amount used: 1 QUART BACARDI RUM, 24 OUNCE BEER (4) Age of first use: 19 Date of last use: 05/02/19 Family Disease History - Family Disease History Family Disease History: Diabetes: Mother (), Other: Father (ALCOHOL, ) Admission Physical Exam BHS - Vital Signs Vital Signs: Vital Signs - 24 hr 05/02/19 05/02/19 12:30 13:08 Temperature 97.2 F L 97.2 F L Pulse Rate 62 62 Respiratory 16 16 Rate Blood Pressure 172/79 H 172/79 H - Physical General Appearance: Yes: Moderate Distress, Tremorous, Irritable, Sweating, Anxious HEENTM: Yes: Normal ENT Inspection, MIRIAN, Pharynx Normal Respiratory: Yes: Lungs Clear, Normal Breath Sounds, No Respiratory Distress Neck: Yes: Within Normal Limits, Supple, Trachea in good position Breast: Yes: Within Normal Limits Cardiology: Yes: Within Normal Limits, Regular Rhythm, Regular Rate, S1, S2 Abdominal: Yes: Within Normal Limits, Normal Bowel Sounds, Non Tender, Flat, Soft Genitourinary: Yes: Within Normal Limits Back: Yes: Muscle Spasm Musculoskeletal: Yes: full range of Motion, Back pain, Muscle Pain Extremities: Yes: Tremors 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 NML intact, Fully Oriented, Alert, Motor Strength 5/5 Integumentary: Yes: Dry Lymphatic: Yes: Within Normal Limits - Diagnostic (1) Alcohol dependence with uncomplicated withdrawal Current Visit: No Status: Chronic (2) Dehydration Current Visit: No Status: Acute (3) Essential hypertension Current Visit: No Status: Chronic (4) History of head injury Current Visit: No Status: Chronic (5) Positive PPD Current Visit: No Status: Resolved Cleared for Admission [facility] - Detox or Rehab [facility] Level of Care: Medically Managed Detox Regimen/Protocol: Librium Breathalyzer - Breathalyzer Breathalyzer: 0.021 Urine Drug Screen - Test Device Lot number: [id number] Expiration date: 01/23/21 - Control Is test valid?: Yes - Results Drug screen NEGATIVE: No Urine drug screen results: BZO-Benzodiazepines Inpatient Rehab Admission - Rehab Decision to Admit Inpatient rehab admission?: No
[2019-05-02] MEDS ORDERED: METHOCARBAMOL 500 MG TABLET PO PRN (13:36)
[2019-05-02] MEDS ORDERED: MENTHOL/PHENOL 1 EACH UD MM PRN (13:36)
[2019-05-02] MEDS ORDERED: MAG HYDROX/AL HYDROX/SIMETH 30 ML UNIT-DOSE CUP PO PRN (13:36)
[2019-05-02] MEDS ORDERED: IBUPROFEN 400 MG TABLET (FP) PO PRN (13:36)
[2019-05-02] MEDS ORDERED: MAGNESIUM HYDROX 2400MG/30ML ORAL SUSPENSION 30 ML CUP PO PRN (13:36)
[2019-05-02] MEDS ORDERED: MAGNESIUM CITRATE 300 ML BOTTLE PO PRN (13:36)
[2019-05-02] MEDS ORDERED: BISMUTH SUBSALICYLATE 262 MG/15 ML BTL PO PRN (13:36)
[2019-05-02] MEDS ORDERED: hydrOXYzine HCL 25 MG TABLET (FP) PO PRN (13:36)
[2019-05-02] MEDS ORDERED: chlordiazePOXIDE HCL 25 MG CAPSULE PO PRN (13:36)
[2019-05-02] MEDS ORDERED: ACETAMINOPHEN 325 MG TABLET (FP) PO PRN ×2 (13:36)
[2019-05-02 15:54] LABS: HEMATOCRIT 43.8 % (35.4-49); HEMOGLOBIN 14.5 GM/dL (11.7-16.9); MCHC 33.2 g/dl (32.0-35.9); MEAN CELL VOLUME 87.4 fl (80-96); MEAN PLT VOLUME 8.7 fl (7.5-11.1); PLATELET COUNT 156 K/MM3 (134-434); RBC 5.01 M/mm3 (4.00-5.60); RDW 14.9 % (11.9-15.9); WHITE BLOOD COUNT 7.5 K/mm3 (4.0-10.0)
[2019-05-02 16:45] LABS: ALBUMIN 3.8 g/dl (3.4-5.0); BILIRUBIN,TOTAL 0.4 mg/dL (0.2-1); BLOOD UREA NITROGEN 16.2 mg/dL (7-18); CALCIUM 9.1 mg/dL (8.5-10.1); CREATININE 1.4 mg/dL (0.55-1.3); POTASSIUM 4.1 mmol/L (3.5-5.1); TOT PROT 8.1 g/dl (6.4-8.2)
[2019-05-02] MEDS: chlordiazePOXIDE HCL 25 MG CAPSULE PO SCH ×2 (17:53→22:17)
[2019-05-02] MEDS: MELATONIN 5 MG TABLETS PO PRN (22:17)
[2019-05-02] MEDS: THIAMINE HCL 100 MG TABLET (FP) PO SCH (22:17)
[2019-05-03] MEDS: chlordiazePOXIDE HCL 25 MG CAPSULE PO SCH ×4 (05:21→22:16)
[2019-05-03] MEDS: PRENATAL VITAMINS W/ FOLIC ACID TABLET (FP) PO SCH (10:21)
--- NOTE | 2019-05-03 15:18 | PN ---
S CIWA - CIWA Score Nausea/Vomitin-No Nausea/No Vomiting Muscle Tremors: 3 Anxiety: 3 Agitation: 1-Slight > Activity Paroxysmal Sweats: 2 Orientation: 0-Oriented Tacttile Disturbances: 0-None Auditory Disturbances: 1-Very Mild Visual Disturbances: 0-None Headache: 0-None Present CIWA-Ar Total Score: 10 BHS Progress Note (SOAP) Subjective: Tremors, Anxious, Sweating. Objective: PATIENT A & O X 3, OBSERVED AMBULATING ON UNIT UNASSISTED. IN NO ACUTE DISTRESS. 05/03/19 15:16 Vital Signs Temperature 97.0 F L 05/03/19 13:28 Pulse Rate 61 05/03/19 13:28 Respiratory Rate 18 05/03/19 13:28 Blood Pressure 149/71 05/03/19 13:28 O2 Sat by Pulse Oximetry (%) Laboratory Tests 05/02/19 05/02/19 05/02/19 14:15 14:15 14:15 WBC 7.5 RBC 5.01 Hgb 14.5 Hct 43.8 MCV 87.4 MCH 29.0 MCHC 33.2 RDW 14.9 Plt Count 156 MPV 8.7 Sodium 139 Potassium 4.1 Chloride 104 Carbon Dioxide 25 Anion Gap 11 BUN 16.2 Creatinine 1.4 H Est GFR (CKD-EPI)AfAm 55.77 Est GFR (CKD-EPI)NonAf 48.12 Random Glucose 77 Calcium 9.1 Total Bilirubin 0.4 AST 18 ALT 23 Alkaline Phosphatase 94 Total Protein 8.1 Albumin 3.8 RPR Titer Nonreactive LABS NOTED. Assessment: 05/03/19 15:18 WITHDRAWAL SYMPTOMS. AZOTEMIA. HYPERTENSION. 05/03/19 15:19 Plan: CONTINUE DETOX. D/C IBUPROFEN AND MAGNESIUM-CONTAINING MEDS. FOR ABNORMAL ADMISSION RENAL LAB VALUES. PER PHARMACIST SANDRA AT PATIENT'S PHARM[facility] ([facility], [address] [place] [address]), PATIENT HAS BEEN PREVIOUSLY PRESCRIBED AMLODIPINE, LISINOPRIL, AND METOPROLOL ON AN OUTPATIENT BASIS. HOWEVER, LAST TIME THAT HE FILLED ANY OF THE AFOREMENTIONED PRESCRIPTIONS WAS IN 2018. WILL CONTINUE TO MONITOR BLOOD PRESSURE FOR TIME BEING.
[2019-05-03] MEDS: MELATONIN 5 MG TABLETS PO PRN (22:16)
[2019-05-03] MEDS: THIAMINE HCL 100 MG TABLET (FP) PO SCH (22:16)
[2019-05-04] MEDS: chlordiazePOXIDE HCL 25 MG CAPSULE PO SCH ×4 (06:43→22:30)
[2019-05-04] MEDS: PRENATAL VITAMINS W/ FOLIC ACID TABLET (FP) PO SCH (10:32)
[2019-05-04] MEDS: THIAMINE HCL 100 MG TABLET (FP) PO SCH (22:30)
[2019-05-05] MEDS ORDERED: chlordiazePOXIDE HCL 10 MG CAPSULE PO PRN
[2019-05-05] MEDS: chlordiazePOXIDE HCL 10 MG CAPSULE PO SCH ×4 (06:14→22:38)
[2019-05-05 10:17] LABS: URINE APPEARANCE CLEAR; URINE BILIRUBIN NEGATIVE (NEGATIVE); URINE COLOR YELLOW; URINE GLUCOSE (UA) NEGATIVE (NEGATIVE); URINE KETONE NEGATIVE (NEGATIVE); URINE LEUK ESTERASE NEGATIVE (NEGATIVE); URINE NITRITE NEGATIVE (NEGATIVE); URINE PROTEIN NEGATIVE (NEGATIVE); URINE UROBILINOGEN 0.2 mg/dL (0.2-1.0)
[2019-05-05] MEDS: PRENATAL VITAMINS W/ FOLIC ACID TABLET (FP) PO SCH (10:26)
--- NOTE | 2019-05-05 11:39 | PN ---
S CIWA - CIWA Score Nausea/Vomitin-No Nausea/No Vomiting Muscle Tremors: 3 Anxiety: 1-Mildly Anxious Agitation: 2 Paroxysmal Sweats: 2 Orientation: 0-Oriented Tacttile Disturbances: 0-None Auditory Disturbances: 0-None Visual Disturbances: 0-None Headache: 0-None Present CIWA-Ar Total Score: 8 BHS Progress Note (SOAP) Subjective: shakes sweats Objective: 05/05/19 11:38 Vital Signs Temperature 96.6 F L 05/05/19 06:00 Pulse Rate 68 05/05/19 09:21 Respiratory Rate 16 05/05/19 09:21 Blood Pressure 148/60 05/05/19 09:21 O2 Sat by Pulse Oximetry (%) Laboratory Tests 05/02/19 05/02/19 05/02/19 14:15 14:15 14:15 WBC 7.5 RBC 5.01 Hgb 14.5 Hct 43.8 MCV 87.4 MCH 29.0 MCHC 33.2 RDW 14.9 Plt Count 156 MPV 8.7 Sodium 139 Potassium 4.1 Chloride 104 Carbon Dioxide 25 Anion Gap 11 BUN 16.2 Creatinine 1.4 H Est GFR (CKD-EPI)AfAm 55.77 Est GFR (CKD-EPI)NonAf 48.12 Random Glucose 77 Calcium 9.1 Total Bilirubin 0.4 AST 18 ALT 23 Alkaline Phosphatase 94 Total Protein 8.1 Albumin 3.8 Urine Color Urine Appearance Urine pH Ur Specific [place] Urine Protein Urine Glucose (UA) Urine Ketones Urine Blood Urine Nitrite Urine Bilirubin Urine Urobilinogen Ur Leukocyte Esterase RPR Titer Nonreactive 05/05/19 08:20 WBC RBC Hgb Hct MCV MCH MCHC RDW Plt Count MPV Sodium Potassium Chloride Carbon Dioxide Anion Gap BUN Creatinine Est GFR (CKD-EPI)AfAm Est GFR (CKD-EPI)NonAf Random Glucose Calcium Total Bilirubin AST ALT Alkaline Phosphatase Total Protein Albumin Urine Color Yellow Urine Appearance Clear Urine pH 6.0 Ur Specific [place] 1.010 Urine Protein Negative Urine Glucose (UA) Negative Urine Ketones Negative Urine Blood Negative Urine Nitrite Negative Urine Bilirubin Negative Urine Urobilinogen 0.2 Ur Leukocyte Esterase Negative RPR Titer labs noted aaox3 ambulating no acute distress Assessment: 05/05/19 11:38 mild withdrawals Plan: continue detox increase fluids
[2019-05-05] MEDS: THIAMINE HCL 100 MG TABLET (FP) PO SCH (22:38)
[2019-05-06] MEDS: chlordiazePOXIDE HCL 10 MG CAPSULE PO SCH ×2 (05:57→18:29)
[2019-05-06] MEDS: PRENATAL VITAMINS W/ FOLIC ACID TABLET (FP) PO SCH (11:00)
--- NOTE | 2019-05-06 13:17 | PN ---
[facility] CIWA - CIWA Score Nausea/Vomitin-No Nausea/No Vomiting Muscle Tremors: None Anxiety: 2 Agitation: 2 Paroxysmal Sweats: 2 Orientation: 0-Oriented Tacttile Disturbances: 0-None Auditory Disturbances: 0-None Visual Disturbances: 0-None Headache: 0-None Present CIWA-Ar Total Score: 6 BHS Progress Note (SOAP) Subjective: Denies any symptoms, medication working well as per patient Objective: 05/06/19 13:13 Last Vital Signs Temp Pulse Resp BP Pulse Ox 97.9 F 68 18 157/90 05/06/19 10:00 05/06/19 10:00 05/06/19 10:00 05/06/19 10:00 Elevated b/p (has htn, on med) Laboratory Tests 05/02/19 05/02/19 05/02/19 14:15 14:15 14:15 WBC 7.5 RBC 5.01 Hgb 14.5 Hct 43.8 MCV 87.4 MCH 29.0 MCHC 33.2 RDW 14.9 Plt Count 156 MPV 8.7 Sodium 139 Potassium 4.1 Chloride 104 Carbon Dioxide 25 Anion Gap 11 BUN 16.2 Creatinine 1.4 H Est GFR (CKD-EPI)AfAm 55.77 Est GFR (CKD-EPI)NonAf 48.12 Random Glucose 77 Calcium 9.1 Total Bilirubin 0.4 AST 18 ALT 23 Alkaline Phosphatase 94 Total Protein 8.1 Albumin 3.8 Urine Color Urine Appearance Urine pH Ur Specific [place] Urine Protein Urine Glucose (UA) Urine Ketones Urine Blood Urine Nitrite Urine Bilirubin Urine Urobilinogen Ur Leukocyte Esterase RPR Titer Nonreactive 05/05/19 08:20 WBC RBC Hgb Hct MCV MCH MCHC RDW Plt Count MPV Sodium Potassium Chloride Carbon Dioxide Anion Gap BUN Creatinine Est GFR (CKD-EPI)AfAm Est GFR (CKD-EPI)NonAf Random Glucose Calcium Total Bilirubin AST ALT Alkaline Phosphatase Total Protein Albumin Urine Color Yellow Urine Appearance Clear Urine pH 6.0 Ur Specific [place] 1.010 Urine Protein Negative Urine Glucose (UA) Negative Urine Ketones Negative Urine Blood Negative Urine Nitrite Negative Urine Bilirubin Negative Urine Urobilinogen 0.2 Ur Leukocyte Esterase Negative RPR Titer Labs reviewed: EMEKA noted, encouraged to drink more water Assessment: 05/06/19 13:14 Withdrawal sxs EMEKA noted, mild Plan: Continue detox Scheduled for discharge tomorrow HTN: uncontrolled; resume norvasc 10mg and metoprolol 25mg PO daily, continue low Na diet, monitor b/p, follow up with PCP for management post discharge EMEKA: encouraged PO water intake Follow up with PCP post discharge in 1-2 weeks for monitoring
[2019-05-06] MEDS: amLODIPine BESYLATE 10 MG TABLET (FP) PO SCH (14:06)
[2019-05-06] MEDS: METOPROLOL TARTRATE 25 MG TABLET (FP) PO SCH (14:06)
[2019-05-06] MEDS: THIAMINE HCL 100 MG TABLET (FP) PO SCH (23:01)
[2019-05-07] MEDS ORDERED: chlordiazePOXIDE HCL 10 MG CAPSULE PO ONE (05:00)
--- NOTE | 2019-05-07 09:06 | DS ---
[facility] Detox Discharge Summary Admission Date: 05/02/19 Discharge Date: 05/07/19 - History Present History: Alcohol Dependence - Physical Exam Results Vital Signs: Vital Signs Temperature 97.3 F L 05/07/19 06:00 Pulse Rate 59 L 05/07/19 06:00 Respiratory Rate 18 05/07/19 06:00 Blood Pressure 155/83 05/07/19 06:00 O2 Sat by Pulse Oximetry (%) Pertinent Admission Physical Exam Findings: pt arrived in withdrawals Laboratory Tests 05/02/19 05/02/19 05/02/19 14:15 14:15 14:15 WBC 7.5 RBC 5.01 Hgb 14.5 Hct 43.8 MCV 87.4 MCH 29.0 MCHC 33.2 RDW 14.9 Plt Count 156 MPV 8.7 Sodium 139 Potassium 4.1 Chloride 104 Carbon Dioxide 25 Anion Gap 11 BUN 16.2 Creatinine 1.4 H Est GFR (CKD-EPI)AfAm 55.77 Est GFR (CKD-EPI)NonAf 48.12 Random Glucose 77 Calcium 9.1 Total Bilirubin 0.4 AST 18 ALT 23 Alkaline Phosphatase 94 Total Protein 8.1 Albumin 3.8 Urine Color Urine Appearance Urine pH Ur Specific [place] Urine Protein Urine Glucose (UA) Urine Ketones Urine Blood Urine Nitrite Urine Bilirubin Urine Urobilinogen Ur Leukocyte Esterase RPR Titer Nonreactive 05/05/19 08:20 WBC RBC Hgb Hct MCV MCH MCHC RDW Plt Count MPV Sodium Potassium Chloride Carbon Dioxide Anion Gap BUN Creatinine Est GFR (CKD-EPI)AfAm Est GFR (CKD-EPI)NonAf Random Glucose Calcium Total Bilirubin AST ALT Alkaline Phosphatase Total Protein Albumin Urine Color Yellow Urine Appearance Clear Urine pH 6.0 Ur Specific [place] 1.010 Urine Protein Negative Urine Glucose (UA) Negative Urine Ketones Negative Urine Blood Negative Urine Nitrite Negative Urine Bilirubin Negative Urine Urobilinogen 0.2 Ur Leukocyte Esterase Negative RPR Titer today pt is aaox3 ambulating no acute distress no s/s of withdrawals - Treatment Hospital Course: Detox Protocol Followed, Detoxed Safely, Responded well, Discharged Condition Good, Rehab Referral Accepted Patient has Accepted a Rehab Referral to: referred to rehab - Medication Discharge Medications: Ambulatory Orders Amlodipine Besylate 10 mg PO DAILY 05/03/19 Lisinopril 10 mg PO BID 05/03/19 Metoprolol Tartrate 25 mg PO DAILY 05/03/19 - Diagnosis (1) Essential hypertension Current Visit: Yes Status: Chronic (2) Alcohol dependence with uncomplicated withdrawal Current Visit: Yes Status: Chronic (3) History of craniotomy Current Visit: No Status: Chronic (4) History of head injury Current Visit: No Status: Chronic (5) Numerous skin moles Current Visit: No Status: Chronic (6) Alcohol-induced mood disorder Current Visit: No Status: Suspected (7) Positive PPD Current Visit: No Status: Resolved - AMA Did Patient Leave Against Medical Advice: No
[2019-05-07] MEDS: PRENATAL VITAMINS W/ FOLIC ACID TABLET (FP) PO SCH (10:45)
[2019-05-07] MEDS: amLODIPine BESYLATE 10 MG TABLET (FP) PO SCH (10:45)
[2019-05-07] MEDS: METOPROLOL TARTRATE 25 MG TABLET (FP) PO SCH (10:45)
[2019-05-07 17:25] VITALS: BP 162/92; PULSE 80; TEMP 98.1
== END 2019-05-07 17:46 | disposition other institution (70) | DRG 897 ==
LOC: YASAS 10:46 → Y6N 13:51
PROVIDERS: ADMIT Surgery; ATTEND Surgery
PROC: HZ2ZZZZ Detoxification Services for Substance Abuse Treatment (ICD-10-PCS; principal; 2019-05-02)
DX: F10.230 Alcohol dependence with withdrawal, uncomplicated (principal); F10.24 Alcohol dependence with alcohol-induced mood disorder; I10 Essential (primary) hypertension; R76.11 Nonspecific reaction to tuberculin skin test without active tuberculosis; D17.9 Benign lipomatous neoplasm, unspecified; R79.89 Other specified abnormal findings of blood chemistry; E86.0 Dehydration; Z87.820 Personal history of traumatic brain injury; Z98.890 Other specified postprocedural states; Z87.438 Personal history of other diseases of male genital organs
CPT/HCPCS: 36415; 71045-TC-FY; 80053; 81003; 85027; 86593

== ENCOUNTER 2019-05-07 17:56 | Inpatient (IN) | payer OTHER ==
[2019-05-07] MEDS ORDERED: guaiFENesin 200 MG/10 ML 10 ML UNIT-DOSE CUPS PO PRN (19:06)
[2019-05-07] MEDS ORDERED: ACETAMINOPHEN 325 MG TABLET (FP) PO PRN (19:06)
[2019-05-07] MEDS ORDERED: MAG HYDROX/AL HYDROX/SIMETH 30 ML UNIT-DOSE CUP PO PRN (19:06)
[2019-05-07] MEDS ORDERED: MENTHOL/PHENOL 1 EACH UD MM PRN (19:06)
[2019-05-07] MEDS ORDERED: MAGNESIUM CITRATE 300 ML BOTTLE PO PRN (19:06)
[2019-05-07] MEDS ORDERED: LOPERAMIDE HCL 2 MG CAPSULE PO PRN (19:06)
[2019-05-07] MEDS ORDERED: MAGNESIUM HYDROX 2400MG/30ML ORAL SUSPENSION 30 ML CUP PO PRN (19:06)
[2019-05-07] MEDS ORDERED: IBUPROFEN 400 MG TABLET (FP) PO PRN (19:06)
[2019-05-07] MEDS ORDERED: P-EPHED 60MG/TRIPROLIDI 2.5MG TABLET PO PRN (19:06)
--- NOTE | 2019-05-07 19:06 | HP ---
[facility] Rehab Assess/Revision - Admission History Admitted to Rehab from: [address] - Vital signs Vital Signs: Vital Signs Period Temp Pulse Resp BP Sys/Tao Pulse Ox Last 24 Hr 97.5 F 64 18 133/71 - Findings Detox History & Physical reviewed: Yes (78y years old male with alcohol dependence, completed detox) Concur with findings: Yes Inpatient Rehab Admission - Rehab Decision to Admit Inpatient rehab admission?: Yes - Initial Determination Are CD services needed?: Yes Free of communicable disease: Yes Not in need of hospitalization: Yes - Rehab Admission Criteria Previous failed treatment: Yes Poor recovery environment: Yes Comorbidities: Yes Lacks judgement: Yes Patient is meeting Inpatient Rehab admission criteria:: Yes (completed detox)
[2019-05-07] MEDS: THIAMINE HCL 100 MG TABLET (FP) PO SCH (21:10)
[2019-05-07] MEDS: LISINOPRIL 10 MG TABLET (FP) PO SCH (21:10)
[2019-05-07] MEDS ORDERED: MELATONIN 5 MG TABLETS PO PRN (22:00)
[2019-05-08] MEDS: LISINOPRIL 10 MG TABLET (FP) PO SCH ×2 (09:51→21:18)
[2019-05-08] MEDS: amLODIPine BESYLATE 10 MG TABLET (FP) PO SCH (09:51)
[2019-05-08] MEDS: METOPROLOL TARTRATE 25 MG TABLET (FP) PO SCH (09:51)
[2019-05-08] MEDS: PRENATAL VITAMINS W/ FOLIC ACID TABLET (FP) PO SCH (09:51)
[2019-05-08] MEDS: hydrOXYzine HCL 25 MG TABLET (FP) PO PRN (21:18)
[2019-05-08] MEDS: THIAMINE HCL 100 MG TABLET (FP) PO SCH (21:18)
[2019-05-09] MEDS: METOPROLOL TARTRATE 25 MG TABLET (FP) PO SCH (09:44)
[2019-05-09] MEDS: LISINOPRIL 10 MG TABLET (FP) PO SCH ×2 (09:44→21:09)
[2019-05-09] MEDS: PRENATAL VITAMINS W/ FOLIC ACID TABLET (FP) PO SCH (09:44)
[2019-05-09] MEDS: amLODIPine BESYLATE 10 MG TABLET (FP) PO SCH (09:45)
[2019-05-09] MEDS: THIAMINE HCL 100 MG TABLET (FP) PO SCH (21:09)
[2019-05-10] MEDS: LISINOPRIL 10 MG TABLET (FP) PO SCH ×2 (09:56→21:07)
[2019-05-10] MEDS: amLODIPine BESYLATE 10 MG TABLET (FP) PO SCH (09:56)
[2019-05-10] MEDS: PRENATAL VITAMINS W/ FOLIC ACID TABLET (FP) PO SCH (09:56)
[2019-05-10] MEDS: METOPROLOL TARTRATE 25 MG TABLET (FP) PO SCH (09:57)
[2019-05-10] MEDS: THIAMINE HCL 100 MG TABLET (FP) PO SCH (21:07)
[2019-05-11] MEDS: PRENATAL VITAMINS W/ FOLIC ACID TABLET (FP) PO SCH (09:47)
[2019-05-11] MEDS: LISINOPRIL 10 MG TABLET (FP) PO SCH ×2 (09:47→21:04)
[2019-05-11] MEDS: amLODIPine BESYLATE 10 MG TABLET (FP) PO SCH (09:47)
[2019-05-11] MEDS: METOPROLOL TARTRATE 25 MG TABLET (FP) PO SCH (09:47)
[2019-05-11] MEDS: THIAMINE HCL 100 MG TABLET (FP) PO SCH (21:04)
[2019-05-12] MEDS: amLODIPine BESYLATE 10 MG TABLET (FP) PO SCH (10:32)
[2019-05-12] MEDS: METOPROLOL TARTRATE 25 MG TABLET (FP) PO SCH (10:32)
[2019-05-12] MEDS: PRENATAL VITAMINS W/ FOLIC ACID TABLET (FP) PO SCH (10:32)
[2019-05-12] MEDS: LISINOPRIL 10 MG TABLET (FP) PO SCH ×2 (10:32→21:08)
[2019-05-12] MEDS: THIAMINE HCL 100 MG TABLET (FP) PO SCH (21:06)
[2019-05-12] MEDS: hydrOXYzine HCL 25 MG TABLET (FP) PO PRN (21:06)
[2019-05-13] MEDS: amLODIPine BESYLATE 10 MG TABLET (FP) PO SCH (10:16)
[2019-05-13] MEDS: LISINOPRIL 10 MG TABLET (FP) PO SCH ×2 (10:16→21:21)
[2019-05-13] MEDS: METOPROLOL TARTRATE 25 MG TABLET (FP) PO SCH (10:19)
[2019-05-13] MEDS: PRENATAL VITAMINS W/ FOLIC ACID TABLET (FP) PO SCH (10:19)
[2019-05-13] MEDS: THIAMINE HCL 100 MG TABLET (FP) PO SCH (21:21)
[2019-05-14] MEDS: PRENATAL VITAMINS W/ FOLIC ACID TABLET (FP) PO SCH (09:42)
[2019-05-14] MEDS: METOPROLOL TARTRATE 25 MG TABLET (FP) PO SCH (09:42)
[2019-05-14] MEDS: amLODIPine BESYLATE 10 MG TABLET (FP) PO SCH (09:42)
[2019-05-14] MEDS: LISINOPRIL 10 MG TABLET (FP) PO SCH ×2 (09:42→21:07)
[2019-05-14] MEDS: THIAMINE HCL 100 MG TABLET (FP) PO SCH (21:07)
[2019-05-15] MEDS: amLODIPine BESYLATE 10 MG TABLET (FP) PO SCH (10:01)
[2019-05-15] MEDS: LISINOPRIL 10 MG TABLET (FP) PO SCH ×2 (10:01→21:09)
[2019-05-15] MEDS: METOPROLOL TARTRATE 25 MG TABLET (FP) PO SCH (10:01)
[2019-05-15] MEDS: PRENATAL VITAMINS W/ FOLIC ACID TABLET (FP) PO SCH (10:01)
[2019-05-15] MEDS: THIAMINE HCL 100 MG TABLET (FP) PO SCH (21:09)
[2019-05-16] MEDS: amLODIPine BESYLATE 10 MG TABLET (FP) PO SCH (09:43)
[2019-05-16] MEDS: METOPROLOL TARTRATE 25 MG TABLET (FP) PO SCH (09:43)
[2019-05-16] MEDS: PRENATAL VITAMINS W/ FOLIC ACID TABLET (FP) PO SCH (09:43)
[2019-05-16] MEDS: LISINOPRIL 10 MG TABLET (FP) PO SCH ×2 (09:43→21:01)
[2019-05-16] MEDS: THIAMINE HCL 100 MG TABLET (FP) PO SCH (21:01)
[2019-05-17] MEDS: METOPROLOL TARTRATE 25 MG TABLET (FP) PO SCH (09:38)
[2019-05-17] MEDS: amLODIPine BESYLATE 10 MG TABLET (FP) PO SCH (09:38)
[2019-05-17] MEDS: LISINOPRIL 10 MG TABLET (FP) PO SCH ×2 (09:39→20:59)
[2019-05-17] MEDS: PRENATAL VITAMINS W/ FOLIC ACID TABLET (FP) PO SCH (09:39)
[2019-05-17] MEDS: THIAMINE HCL 100 MG TABLET (FP) PO SCH (20:59)
[2019-05-18] MEDS: METOPROLOL TARTRATE 25 MG TABLET (FP) PO SCH (09:46)
[2019-05-18] MEDS: LISINOPRIL 10 MG TABLET (FP) PO SCH ×2 (09:46→21:39)
[2019-05-18] MEDS: amLODIPine BESYLATE 10 MG TABLET (FP) PO SCH (09:46)
[2019-05-18] MEDS: PRENATAL VITAMINS W/ FOLIC ACID TABLET (FP) PO SCH (09:46)
[2019-05-18] MEDS: THIAMINE HCL 100 MG TABLET (FP) PO SCH (21:39)
[2019-05-19] MEDS: amLODIPine BESYLATE 10 MG TABLET (FP) PO SCH (09:28)
[2019-05-19] MEDS: LISINOPRIL 10 MG TABLET (FP) PO SCH ×2 (09:28→21:55)
[2019-05-19] MEDS: METOPROLOL TARTRATE 25 MG TABLET (FP) PO SCH (09:28)
[2019-05-19] MEDS: PRENATAL VITAMINS W/ FOLIC ACID TABLET (FP) PO SCH (09:28)
[2019-05-19] MEDS: THIAMINE HCL 100 MG TABLET (FP) PO SCH (21:55)
[2019-05-20] MEDS: PRENATAL VITAMINS W/ FOLIC ACID TABLET (FP) PO SCH (09:31)
[2019-05-20] MEDS: METOPROLOL TARTRATE 25 MG TABLET (FP) PO SCH (09:31)
[2019-05-20] MEDS: LISINOPRIL 10 MG TABLET (FP) PO SCH ×2 (09:31→21:02)
[2019-05-20] MEDS: amLODIPine BESYLATE 10 MG TABLET (FP) PO SCH (09:31)
[2019-05-20] MEDS: THIAMINE HCL 100 MG TABLET (FP) PO SCH (21:02)
[2019-05-21 06:58] VITALS: BP 158/71; PULSE 65; TEMP 97.4
[2019-05-21] MEDS: amLODIPine BESYLATE 10 MG TABLET (FP) PO SCH (09:30)
[2019-05-21] MEDS: METOPROLOL TARTRATE 25 MG TABLET (FP) PO SCH (09:30)
[2019-05-21] MEDS: LISINOPRIL 10 MG TABLET (FP) PO SCH (09:30)
[2019-05-21] MEDS: PRENATAL VITAMINS W/ FOLIC ACID TABLET (FP) PO SCH (09:30)
--- NOTE | 2019-05-21 12:17 | DS ---
[facility] Rehab Discharge Summary - [facility] Rehab Discharge Summary Admission Date: 05/07/19 Discharge Date: 05/21/19 - History Present History: Alcohol dependence - Discharge Physical Exam Vital Signs: Vital Signs Temperature 97.4 F L 05/21/19 06:57 Pulse Rate 65 05/21/19 06:57 Respiratory Rate 18 05/21/19 06:57 Blood Pressure 158/71 05/21/19 06:57 O2 Sat by Pulse Oximetry (%) Pertinent Admission Physical Exam Findings: alert and oriented x 3 skin warm and dry car [id number] resp cta bl ext full rom, amb ad carey Patient completed rehab without incident. Patient was able to complete groups and accomplish all rehab goals. Patient remains medically stable and denies SI/ HI at time of discharge. - Treatment Discharge Condition: Outpatient referral accepted (Patient has aftercare arranged for [facility] and substance abuse center) - Medication Discharge Medications: Ambulatory Orders Amlodipine Besylate 10 mg PO DAILY #30 tablet 05/21/19 Lisinopril 10 mg PO BID #60 tablet 05/21/19 Metoprolol Tartrate 25 mg PO DAILY #30 tablet 05/21/19 - Medication-Assisted Treatment (MAT) Medication-Assisted Treatment (MAT): No - Discharge Instructions Diet, activity, other medical instructions: Diet: Activity: Other medical instructions: - Follow-up Referral Minutes to complete discharge: 30 - AMA Did Patient Leave Against Medical Advice: No
== END 2019-05-21 10:00 | disposition home or self-care (01) | DRG 895 ==
LOC: YASAS 17:56 → Y5N 17:57
PROVIDERS: ADMIT Neuromusculoskeletal Medicine & OMM; ATTEND Neuromusculoskeletal Medicine & OMM
PROC: HZ42ZZZ Group Counseling for Substance Abuse Treatment, Cognitive-Behavioral (ICD-10-PCS; principal; 2019-05-07)
DX: F10.20 Alcohol dependence, uncomplicated (principal); I10 Essential (primary) hypertension

== ENCOUNTER 2019-07-05 11:09 | Inpatient (IN) | payer OTHER ==
--- NOTE | 2019-07-05 14:37 | HP ---
CIWA Score Nausea/Vomitin-Mild Nausea/No Vomiting Muscle Tremors: 1-None Visible, but [place] Anxiety: 1-Mildly Anxious Agitation: 1-Slight > Activity Paroxysmal Sweats: No Perspiration Orientation: 1-Uncertain about Date Tacttile Disturbances: 0-None Auditory Disturbances: 0-None Visual Disturbances: 0-None Headache: 0-None Present CIWA-Ar Total Score: 5 - Admission Criteria OASAS Guidelines: Admission for Medically Managed Detox: Requires at least one of the followin. CIWA greater than 12 2. Seizures within the past 24 hours 3. Delirium tremens within the past 24 hours 4. Hallucinations within the past 24 hours 5. Acute intervention needed for co occurring medical disorder 6. Acute intervention needed for co occurring psychiatric disorder 7. Severe withdrawal that cannot be handled at a lower level of care (continued vomiting, continued diarrhea, abnormal vital signs) requiring intravenous medication and/or fluids 8. Admitting History and Physical - Smoking History Smoking history: Never smoked Have you smoked in the past 12 months: No Aproximately how many cigarettes per day: 0 - Alcohol/Substance Use Hx Alcohol Use: Yes Admission ROS [facility] Chief Complaint: Dakotah Stewart is a 79 year old male presenting for alcohol abuse. Allergies/Adverse Reactions: Allergies Allergy/AdvReac Type Severity Reaction Status Date / Time No Known Allergies Allergy Verified 07/05/19 13:00 History of Present Illness: Dakotah Stewart is a 79 year old male presenting for alcohol abuse. Alcohol: 1 quart of hard alcohol, 4 24 oz beers per day. Daily drinker. Last drink was the morning of admission prior to arriving at this facility. Denies seizures, blackouts. Has had falls but no head hits. Withdrawal symptoms: tremors, anxiety, nausea, vomiting, light sensitivity. Denies other substance use. Uncertain as to why benzodiazepines are in his urines. Has been to detox, has been to rehab in the past. Plans after detox are to go to rehab at this facility. Medical History: HTN, prostate issue, sickle cell trait Surgical History: head surgery s/p trauma, eye surgery, tonsillectomy Psychiatric History: denies Social: denies Social: stays in hotel, stays with cousin. SSD. Is in contact with two sons. Family unaware that he is at this facility. Utox: BZO NIKI: 0.019 Counseled on needing colonoscopy in the future. Counseled to keep his appointment with urology as his ER physician at [place] recommended he follow up due to his prostate issue. Counseled on seeing a felt hat inspector and packer for his facial and back nevi. Will require referral to elder services. Will be admitted for alcohol detox with Librium protocol. Will speak to counselor about his options after completing detox. Exam Limitations: No Limitations - Ebola screening Have you traveled outside of the country in the last 21 days: No Have you had contact with anyone from an Ebola affected area: No Do you have a fever: No - Review of Systems Constitutional: No Symptoms Reported EENT: reports: No Symptoms Reported Respiratory: reports: No Symptoms reported Cardiac: reports: No Symptoms Reported GI: reports: No Symptoms Reported : reports: Frequency, Other (difficult initiating stream) Musculoskeletal: reports: No Symptoms Reported Integumentary: reports: No Symptoms Reported Neuro: reports: No Symptoms reported Endocrine: reports: Increased Thirst, Increased Urine Hematology: reports: No Symptoms Reported Psychiatric: reports: Anxious, other (tangential speech, easily distracted) Patient History - Patient Medical History Hx Anemia: No Hx Asthma: No Hx Chronic Obstructive Pulmonary Disease (COPD): No Hx Cancer: No Hx Cardiac Disorders: No Hx Congestive Heart Failure: No Hx Hypertension: Yes (on med) Hx Hypercholesterolemia: No Hx Pacemaker: No HX Cerebrovascular Accident: No Hx Seizures: No Hx Dementia: No Hx Diabetes: No Hx Gastrointestinal Disorders: No Hx Liver Disease: No Hx Genitourinary Disorders: No Hx Sexually Transmitted Disorders: Yes (gonorrhea at age 19) Hx Renal Disease (ESRD): No Hx Thyroid Disease: No Hx Human Immunodeficiency Virus (HIV): No (last 2016 negative) Hx Hepatitis C: No Hx Depression: No Hx Suicide Attempt: No Hx Bipolar Disorder: No Hx Schizophrenia: No - Patient Surgical History Past Surgical History: Yes Hx Neurologic Surgery: Yes (head trauma ([facility])) Hx Cataract Extraction: No Hx Cardiac Surgery: No Hx Lung Surgery: No Hx Breast Surgery: No Hx Breast Biopsy: No Hx Abdominal Surgery: No Hx Appendectomy: No Hx Cholecystectomy: No Hx Genitourinary Surgery: No Hx Orthopedic Surgery: No Other Surgical History: ,tonsilectomy 25yrs,SURGERY OF TEAR DUCT RIGHT 40 YEARS AGO Anesthesia Reaction: No - PPD History Previous Implant?: Yes Documented Results: Negative w/o proof PPD to be Administered?: Yes - Smoking Cessation Smoking history: Never smoked Have you smoked in the past 12 months: No Aproximately how many cigarettes per day: 0 Cigars Per Day: 0 Hx Chewing Tobacco Use: No - Substance & Tx. History Hx Alcohol Use: Yes Hx Substance Use: No Substance Use Type: Alcohol Hx Substance Use Treatment: No - Substances abused Alcohol Substance route: Oral Frequency: Daily Amount used: 1 QUART BACARDI RUM whiskey , 24 OUNCE BEER (2-4) Age of first use: 19 Date of last use: 07/05/19 Admission Physical Exam [facility] - Vital Signs Vital Signs: Vital Signs - 24 hr 07/05/19 13:00 Temperature 97.7 F Pulse Rate 69 Respiratory 18 Rate Blood Pressure 150/91 - Physical General Appearance: Yes: Disheveled, Mild Distress HEENTM: Yes: EOMI, MIRIAN, Pharynx Normal, Other (multiple missing teeth, no top teeth, noted lesion from previous surgery on posterior side of head) Respiratory: Yes: Chest Non-Tender, Lungs Clear, Normal Breath Sounds, No Respiratory Distress, No Accessory Muscle Use Neck: Yes: No masses,lesions,Nodules, Trachea in good position Breast: Yes: Breast Exam Deferred Cardiology: Yes: Regular Rhythm, Regular Rate, S1, S2 Abdominal: Yes: Normal Bowel Sounds, Non Tender, Flat, Soft Genitourinary: Yes: Frequency, Hesitency, Uregency Back: Yes: Normal Inspection Musculoskeletal: Yes: full range of Motion Extremities: Yes: Normal Capillary Refill, Normal Range of Motion, Non-Tender Neurological: Yes: cpa tax II-XII NML intact, Alert, Motor Strength 5/5, Other ( Tangential speech, easily forgetful) Integumentary: Yes: Dry, Warm, Other (Dry and cracking feet, numerous nevi on face and back) - Diagnostic (1) Alcohol dependence with uncomplicated withdrawal Current Visit: No Status: Chronic (2) Essential hypertension Current Visit: No Status: Chronic (3) History of craniotomy Current Visit: No Status: Chronic (4) Numerous skin moles Current Visit: No Status: Chronic (5) Alcohol-induced mood disorder Current Visit: No Status: Suspected Cleared for Admission [facility] - Detox or Rehab [facility] Level of Care: Medically Managed Detox Regimen/Protocol: Librium Breathalyzer - Breathalyzer Breathalyzer: 0.019 Urine Drug Screen - Test Device Lot number: [id number] Expiration date: 02/23/21 - Control Is test valid?: Yes - Results Drug screen NEGATIVE: No Urine drug screen results: BZO-Benzodiazepines Inpatient Rehab Admission - Rehab Decision to Admit Inpatient rehab admission?: No
[2019-07-05] MEDS ORDERED: IBUPROFEN 400 MG TABLET (FP) PO PRN (15:42)
[2019-07-05] MEDS ORDERED: MENTHOL/PHENOL 1 EACH UD MM PRN (15:42)
[2019-07-05] MEDS ORDERED: BISMUTH SUBSALICYLATE 524 MG/30 ML UD PO PRN (15:42)
[2019-07-05] MEDS ORDERED: MELATONIN 5 MG TABLETS PO PRN (15:42)
[2019-07-05] MEDS ORDERED: ACETAMINOPHEN 325 MG TABLET (FP) PO PRN ×2 (15:42)
[2019-07-05] MEDS ORDERED: chlordiazePOXIDE HCL 10 MG CAPSULE PO PRN (15:42)
[2019-07-05] MEDS ORDERED: hydrOXYzine PAMOATE 25 MG CAPSULE (FP) PO PRN (15:42)
[2019-07-05] MEDS ORDERED: MAGNESIUM HYDROX 2400MG/30ML ORAL SUSPENSION 30 ML CUP PO PRN (15:42)
[2019-07-05] MEDS ORDERED: MAG HYDROX/AL HYDROX/SIMETH 30 ML UNIT-DOSE CUP PO PRN (15:42)
[2019-07-05] MEDS ORDERED: MAGNESIUM CITRATE 300 ML BOTTLE PO PRN (15:42)
--- NOTE | 2019-07-05 15:52 | PN ---
Teaching Attending Note Name of Resident: George Cochran ATTENDING PHYSICIAN STATEMENT I saw and evaluated the patient. I reviewed the resident's note and discussed the case with the resident. I agree with the resident's findings and plan as documented. SUBJECTIVE: 79 yr old male here requesting etoh detox reports relapse after d/ c from this facility April 2019 . Alcohol 1 quart liquor/day and 4 x 24 oz beers , starts drinking alcohol in the mornings, reports tremors if not drinking . Latest use today, denies seizures, blackouts, + falls in the past. Denies other substance use. Medical History: HTN, prostate issue, sickle cell trait Surgical History: head surgery s/p trauma, eye surgery, tonsillectomy Psychiatric History: denies Social: denies Social: stays in hotel, stays with cousin. SSD. Is in contact with two sons. Family unaware that he is at this facility. Utox: BZO NIKI: 0.019 OBJECTIVE: wnwd , mild UE tremors Vital Signs - 24 hr 07/05/19 13:00 Temperature 97.7 F Pulse Rate 69 Respiratory 18 Rate Blood Pressure 150/91 ASSESSMENT AND PLAN: Alcohol dependence - Librium detox .
[2019-07-05] MEDS ORDERED: AMMONIUM LACTATE 12% LOTION 225 GM BOTTLE TP PRN (17:00)
[2019-07-05] MEDS: chlordiazePOXIDE HCL 25 MG CAPSULE PO SCH (22:18)
[2019-07-05] MEDS: THIAMINE HCL 100 MG TABLET (FP) PO SCH (22:18)
[2019-07-05] MEDS: LISINOPRIL 10 MG TABLET (FP) PO SCH (22:18)
[2019-07-06] MEDS: chlordiazePOXIDE HCL 25 MG CAPSULE PO SCH ×3 (05:27→22:18)
[2019-07-06 10:12] LABS: HEMATOCRIT 38.6 % (35.4-49); HEMOGLOBIN 12.8 GM/dL (11.7-16.9); MCH 28.8 pg (25.7-33.7); MCHC 33.2 g/dl (32.0-35.9); MEAN CELL VOLUME 86.9 fl (80-96); MEAN PLT VOLUME 8.2 fl (7.5-11.1); PLATELET COUNT 176 K/MM3 (134-434); RBC 4.45 M/mm3 (4.00-5.60)
[2019-07-06 10:23] LABS: ALBUMIN 3.3 g/dl (3.4-5.0); BILIRUBIN,TOTAL 0.3 mg/dL (0.2-1); BLOOD UREA NITROGEN 18.6 mg/dL (7-18); CALCIUM 8.5 mg/dL (8.5-10.1); CREATININE 1.3 mg/dL (0.55-1.3); POTASSIUM 4.2 mmol/L (3.5-5.1); TOT PROT 6.9 g/dl (6.4-8.2)
[2019-07-06] MEDS: amLODIPine BESYLATE 10 MG TABLET (FP) PO SCH (10:24)
[2019-07-06] MEDS: LISINOPRIL 10 MG TABLET (FP) PO SCH ×2 (10:24→22:18)
[2019-07-06] MEDS: PRENATAL VITAMINS W/ FOLIC ACID TABLET (FP) PO SCH (10:24)
--- NOTE | 2019-07-06 17:50 | PN ---
S CIWA - CIWA Score Nausea/Vomitin-No Nausea/No Vomiting Muscle Tremors: 3 Anxiety: 2 Agitation: 2 Paroxysmal Sweats: 1-Minimal Palms Moist Orientation: 0-Oriented Tacttile Disturbances: 0-None Auditory Disturbances: 0-None Visual Disturbances: 0-None Headache: 0-None Present CIWA-Ar Total Score: 8 [facility] Progress Note (SOAP) Subjective: Anxious, Tremors, Sweating, Nausea (Mild). Patient reports That Current withdrawal Detox Symptoms in General Are Gradually Beginning to Diminish in Severity. Objective: PATIENT A & O X 3, OBSERVED AMBULATING ON DETOX UNIT UNASSISTED. IN NO ACUTE DISTRESS. 07/06/19 17:49 Vital Signs Temperature 96.5 F L 07/06/19 17:42 Pulse Rate 72 07/06/19 17:42 Respiratory Rate 18 07/06/19 17:42 Blood Pressure 127/65 07/06/19 17:42 O2 Sat by Pulse Oximetry (%) Laboratory Tests 07/06/19 07/06/19 08:00 08:00 WBC 6.0 RBC 4.45 Hgb 12.8 Hct 38.6 MCV 86.9 MCH 28.8 MCHC 33.2 RDW 15.0 Plt Count 176 MPV 8.2 Sodium 138 Potassium 4.2 Chloride 106 Carbon Dioxide 25 Anion Gap 7 L BUN 18.6 H Creatinine 1.3 Est GFR (CKD-EPI)AfAm 60.57 Est GFR (CKD-EPI)NonAf 52.26 Random Glucose 92 Calcium 8.5 Total Bilirubin 0.3 AST 20 ALT 22 Alkaline Phosphatase 82 Total Protein 6.9 Albumin 3.3 L LABS NOTED. Assessment: 07/06/19 17:50 WITHDRAWAL SYMPTOMS. Plan: CONTINUE DETOX. INCREASE DAILY PO WATER INTAKE.
[2019-07-06] MEDS: THIAMINE HCL 100 MG TABLET (FP) PO SCH (22:18)
[2019-07-07] MEDS: chlordiazePOXIDE 5 MG CAPSULE PO SCH ×3 (06:07→21:40)
[2019-07-07] MEDS: LISINOPRIL 10 MG TABLET (FP) PO SCH (10:40)
[2019-07-07] MEDS: amLODIPine BESYLATE 10 MG TABLET (FP) PO SCH (10:40)
[2019-07-07] MEDS: PRENATAL VITAMINS W/ FOLIC ACID TABLET (FP) PO SCH (10:41)
[2019-07-07] MEDS ORDERED: FLU VACCINE QUAD 60 MCG/0.5 ML (MDV 19-20) IM ONE (12:00)
--- NOTE | 2019-07-07 12:47 | PN ---
S CIWA - CIWA Score Nausea/Vomitin-No Nausea/No Vomiting Muscle Tremors: None Anxiety: 3 Agitation: 0-Normal Activity Paroxysmal Sweats: 2 Orientation: 0-Oriented Tacttile Disturbances: 0-None Auditory Disturbances: 0-None Visual Disturbances: 0-None Headache: 2-Mild CIWA-Ar Total Score: 7 [facility] Progress Note (SOAP) Subjective: c/o headache, sweats, and anxiety. Objective: 07/07/19 12:46 Vital Signs 07/07/19 07/07/19 07:02 09:37 Temperature 97.1 F L 96.5 F L Pulse Rate 69 61 Respiratory 18 18 Rate Blood Pressure 160/81 149/75 Lab Results WBC 6.0 K/mm3 (4.0-10.0) 07/06/19 08:00 RBC 4.45 M/mm3 (4.00-5.60) 07/06/19 08:00 Hgb 12.8 GM/dL (11.7-16.9) 07/06/19 08:00 Hct 38.6 % (35.4-49) 07/06/19 08:00 MCV 86.9 fl (80-96) 07/06/19 08:00 MCHC 33.2 g/dl (32.0-35.9) 07/06/19 08:00 RDW 15.0 % (11.9-15.9) 07/06/19 08:00 Plt Count 176 K/MM3 (134-434) 07/06/19 08:00 Sodium 138 mmol/L (136-145) 07/06/19 08:00 Potassium 4.2 mmol/L (3.5-5.1) 07/06/19 08:00 Chloride 106 mmol/L (98-107) 07/06/19 08:00 Carbon Dioxide 25 mmol/L (21-32) 07/06/19 08:00 Anion Gap 7 MMOL/L (8-16) L 07/06/19 08:00 BUN 18.6 mg/dL (7-18) H 07/06/19 08:00 Creatinine 1.3 mg/dL (0.55-1.3) 07/06/19 08:00 Random Glucose 92 mg/dL (74-106) 07/06/19 08:00 Calcium 8.5 mg/dL (8.5-10.1) 07/06/19 08:00 Labs noted. Assessment: 07/07/19 12:47 AOX3, in no acute respiratory distress. Full ROM, ambulating in the unit. Withdrawal symptoms. Plan: continue detox.
[2019-07-07] MEDS ORDERED: diphenhydrAMINE HCL 25 MG CAPSULE (FP) PO ONE (18:11)
--- NOTE | 2019-07-07 18:24 | PN ---
[facility] Progress Note Note: Patient is referred for swelling of the lower lip. On exam, he is noted with gross swelling of the lower lip, he denies trauma or any form of injury, patient reports swelling started this afternoon. There are no lesions or any evidence of injury to the lip. There are no oral lesions, the tongue is normal size, midline. He denies sore throat, difficulty swallowing or discomfort. PE Vital Signs Temperature 96.8 F L 07/07/19 13:34 Pulse Rate 66 07/07/19 13:34 Respiratory Rate 16 07/07/19 13:34 Blood Pressure 143/64 07/07/19 13:34 O2 Sat by Pulse Oximetry (%) Chest: Lungs clear in all rubio, no adventitious breath sounds CVS: S1S2, RRR, no murmur A/P -Patient is on lisinopril which could be possible cause of angioedema. Benadryl 50mg PO X 1 then 25mg PO Q 4hrs as needed Lisinopril has been discontinued, patient will be maintained on norvasc as ordered, if blood pressure uncontrolled, will order 2nd agent. Will discuss with oncoming provider to follow up, d/w nursing.
[2019-07-07] MEDS: THIAMINE HCL 100 MG TABLET (FP) PO SCH (21:39)
[2019-07-08] MEDS: chlordiazePOXIDE HCL 10 MG CAPSULE PO SCH ×3 (05:33→22:10)
[2019-07-08] MEDS: PRENATAL VITAMINS W/ FOLIC ACID TABLET (FP) PO SCH (10:02)
[2019-07-08] MEDS: amLODIPine BESYLATE 10 MG TABLET (FP) PO SCH (10:02)
--- NOTE | 2019-07-08 11:31 | PN ---
[facility] CIWA - CIWA Score Nausea/Vomitin-No Nausea/No Vomiting Muscle Tremors: None Anxiety: 2 Agitation: 0-Normal Activity Paroxysmal Sweats: 2 Orientation: 0-Oriented Tacttile Disturbances: 0-None Auditory Disturbances: 0-None Visual Disturbances: 0-None Headache: 0-None Present CIWA-Ar Total Score: 4 [facility] Progress Note (SOAP) Subjective: c/o swollen lips, mild anxiety, and sweats. Objective: 07/08/19 11:25 Vital Signs 07/08/19 07/08/19 07/08/19 03:30 06:38 09:50 Temperature 96.9 F L 97.5 F L Pulse Rate 68 69 Respiratory 18 16 18 Rate Blood Pressure 154/88 157/78 Lab Results WBC 6.0 K/mm3 (4.0-10.0) 07/06/19 08:00 RBC 4.45 M/mm3 (4.00-5.60) 07/06/19 08:00 Hgb 12.8 GM/dL (11.7-16.9) 07/06/19 08:00 Hct 38.6 % (35.4-49) 07/06/19 08:00 MCV 86.9 fl (80-96) 07/06/19 08:00 MCHC 33.2 g/dl (32.0-35.9) 07/06/19 08:00 RDW 15.0 % (11.9-15.9) 07/06/19 08:00 Plt Count 176 K/MM3 (134-434) 07/06/19 08:00 Sodium 138 mmol/L (136-145) 07/06/19 08:00 Potassium 4.2 mmol/L (3.5-5.1) 07/06/19 08:00 Chloride 106 mmol/L (98-107) 07/06/19 08:00 Carbon Dioxide 25 mmol/L (21-32) 07/06/19 08:00 Anion Gap 7 MMOL/L (8-16) L 07/06/19 08:00 BUN 18.6 mg/dL (7-18) H 07/06/19 08:00 Creatinine 1.3 mg/dL (0.55-1.3) 07/06/19 08:00 Random Glucose 92 mg/dL (74-106) 07/06/19 08:00 Calcium 8.5 mg/dL (8.5-10.1) 07/06/19 08:00 Labs noted. Assessment: 07/08/19 11:25 AOX3, in no respiratory distress. Full ROM, ambulating in the unit. Mild Withdrawal symptoms. Mild swelling to lips. For d/c tomorrow. Plan: continue detox. continue benadryl 25mg po prn D/C in AM.
[2019-07-08] MEDS: diphenhydrAMINE HCL 25 MG CAPSULE (FP) PO PRN ×2 (11:36→22:11)
[2019-07-08] MEDS: THIAMINE HCL 100 MG TABLET (FP) PO SCH (22:10)
[2019-07-09] MEDS ORDERED: chlordiazePOXIDE HCL 10 MG CAPSULE PO ONE (05:00)
[2019-07-09] MEDS: diphenhydrAMINE HCL 25 MG CAPSULE (FP) PO PRN (05:28)
[2019-07-09 06:10] VITALS: PULSE 64
[2019-07-09 09:11] VITALS: BP 134/79; TEMP 98.7
[2019-07-09] MEDS: amLODIPine BESYLATE 10 MG TABLET (FP) PO SCH (11:15)
[2019-07-09] MEDS: PRENATAL VITAMINS W/ FOLIC ACID TABLET (FP) PO SCH (11:15)
--- NOTE | 2019-07-09 18:03 | DS ---
[facility] Detox Discharge Summary Admission Date: 07/05/19 Discharge Date: 07/09/19 - History Present History: Alcohol Dependence Additional Comments: PATIENT RETURNING HOME FOR TIME BEING, WILL CONSIDER REHAB ADMISSION FOR A LATER DATE IN NEAR FUTURE. PATIENT ALSO ADVISED TO CONSIDER LOCAL 12-STEP / AA OUTPATIENT SUPPORT GROUP PROGRAMS FOR AFTERCARE. PATIENT VERBALIZED UNDERSTANDING OF RECOMMENDATION. PER PHARMACIST AT PATIENT'S PHARMACY ([facility], [address]), PATIENT CURRENTLY HAS RENEWALS OF ALL REPORTED HOME MEDICATIONS WAITING FOR HIM THERE. PATIENT WAS DISCHARGED FROM DETOX UNIT IN STABLE MEDICAL CONDITION. Pertinent Past History: HTN, History Of Prostate Disorder, Sickle Cell Trait, History of Eye Surgery, History Of Head Surgery (S/P Trauma), Skin Moles. - Physical Exam Results Vital Signs: Vital Signs Temperature 98.7 F 07/09/19 09:11 Pulse Rate 64 07/09/19 09:11 Respiratory Rate 16 07/09/19 09:11 Blood Pressure 134/79 07/09/19 09:11 O2 Sat by Pulse Oximetry (%) Pertinent Admission Physical Exam Findings: WITHDRAWAL SYMPTOMS. Laboratory Tests 07/06/19 07/06/19 08:00 08:00 WBC 6.0 RBC 4.45 Hgb 12.8 Hct 38.6 MCV 86.9 MCH 28.8 MCHC 33.2 RDW 15.0 Plt Count 176 MPV 8.2 Sodium 138 Potassium 4.2 Chloride 106 Carbon Dioxide 25 Anion Gap 7 L BUN 18.6 H Creatinine 1.3 Est GFR (CKD-EPI)AfAm 60.57 Est GFR (CKD-EPI)NonAf 52.26 Random Glucose 92 Calcium 8.5 Total Bilirubin 0.3 AST 20 ALT 22 Alkaline Phosphatase 82 Total Protein 6.9 Albumin 3.3 L LABS NOTED. - Treatment Hospital Course: Detox Protocol Followed, Detoxed Safely, Responded well, Discharged Condition Good Patient has Accepted a Rehab Referral to: PATIENT ADVISED TO CONSIDER LOCAL 12- STEP / AA OUTPATIENT SUPPORT GROUPS. 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
== END 2019-07-09 11:53 | disposition home or self-care (01) | DRG 897 ==
LOC: YASAS 11:09 → Y3N 16:29
PROVIDERS: ADMIT Allergy & Immunology; ATTEND Allergy & Immunology
PROC: HZ2ZZZZ Detoxification Services for Substance Abuse Treatment (ICD-10-PCS; principal; 2019-07-05)
DX: F10.230 Alcohol dependence with withdrawal, uncomplicated (principal); F10.24 Alcohol dependence with alcohol-induced mood disorder; D57.3 Sickle-cell trait; D22.9 Melanocytic nevi, unspecified; I10 Essential (primary) hypertension; Z98.890 Other specified postprocedural states; Z87.828 Personal history of other (healed) physical injury and trauma
CPT/HCPCS: 36415; 80053; 85027; Q2036

== ENCOUNTER 2019-08-13 10:39 | Inpatient (IN) | payer OTHER ==
[2019-08-13 11:59] VITALS: BMI 31.4
--- NOTE | 2019-08-13 12:51 | HP ---
CIWA Score - Admission Criteria OASAS Guidelines: Admission for Medically Managed Detox: Requires at least one of the followin. CIWA greater than 12 2. Seizures within the past 24 hours 3. Delirium tremens within the past 24 hours 4. Hallucinations within the past 24 hours 5. Acute intervention needed for co occurring medical disorder 6. Acute intervention needed for co occurring psychiatric disorder 7. Severe withdrawal that cannot be handled at a lower level of care (continued vomiting, continued diarrhea, abnormal vital signs) requiring intravenous medication and/or fluids 8. Admitting History and Physical - Smoking History Smoking history: Never smoked Have you smoked in the past 12 months: No Aproximately how many cigarettes per day: 0 - Alcohol/Substance Use Hx Alcohol Use: Yes Admission ROS S - HPI Chief Complaint: here for alcohol rehab Allergies/Adverse Reactions: Allergies Allergy/AdvReac Type Severity Reaction Status Date / Time No Known Allergies Allergy Verified 08/13/19 11:53 History of Present Illness: Dakotah Stewart is a 79 year old male was last here about 2 months ago- pt completed detox. Since then relapsed and has been to detox and then more recently at [facility]. Left 3 days ago. Says he has not had a drink since then. Here for alcohol rehab. Pt states he lives in a hotel. Has no family here. Pt states he has a lawsuit pending that he will receive some money next month. Medical History: HTN, prostate issue, sickle cell trait. PCP- does not have one. Goes to ER for med services Surgical History: head surgery s/p trauma, eye surgery, tonsillectomy Psychiatric History: denies Social: stays in hotel, stays with cousin. SSD. Is in contact with two sons. Utox: BZO NIKI- 0 - Ebola screening Have you traveled outside of the country in the last 21 days: No Have you had contact with anyone from an Ebola affected area: No Do you have a fever: No - Review of Systems Constitutional: No Symptoms Reported EENT: reports: No Symptoms Reported Respiratory: reports: No Symptoms reported Cardiac: reports: No Symptoms Reported GI: reports: No Symptoms Reported : reports: No Symptoms Reported Musculoskeletal: reports: No Symptoms Reported Integumentary: reports: No Symptoms Reported Neuro: reports: No Symptoms reported Endocrine: reports: No Symptoms Reported Hematology: reports: No Symptoms Reported Psychiatric: reports: No Sypmtoms Reported Other Systems: Reviewed and Negative Patient History - Patient Medical History Hx Anemia: No Hx Asthma: No Hx Chronic Obstructive Pulmonary Disease (COPD): No Hx Cancer: No Hx Cardiac Disorders: No Hx Congestive Heart Failure: No Hx Hypertension: Yes Hx Hypercholesterolemia: No Hx Pacemaker: No HX Cerebrovascular Accident: No Hx Seizures: No Hx Dementia: No Hx Diabetes: No Hx Gastrointestinal Disorders: No Hx Liver Disease: No Hx Genitourinary Disorders: No Hx Sexually Transmitted Disorders: No Hx Renal Disease (ESRD): No Hx Thyroid Disease: No Hx Human Immunodeficiency Virus (HIV): No (last 2017 negative) Hx Hepatitis C: No Hx Depression: No Hx Suicide Attempt: No Hx Bipolar Disorder: No Hx Schizophrenia: No - Patient Surgical History Past Surgical History: Yes Hx Neurologic Surgery: Yes (head trauma ([facility])) Hx Cataract Extraction: No Hx Cardiac Surgery: No Hx Lung Surgery: No Hx Breast Surgery: No Hx Breast Biopsy: No Hx Abdominal Surgery: No Hx Appendectomy: No Hx Cholecystectomy: No Hx Genitourinary Surgery: No Hx Orthopedic Surgery: No Other Surgical History: ,tonsilectomy 26yrs,SURGERY OF TEAR DUCT RIGHT 40 YEARS AGO Anesthesia Reaction: No - Smoking Cessation Smoking history: Never smoked Have you smoked in the past 12 months: No Aproximately how many cigarettes per day: 0 Cigars Per Day: 0 Hx Chewing Tobacco Use: No - Substances abused Alcohol Substance route: Oral Frequency: Daily Amount used: 1 QUART/ BACARDI/ RUM/ whiskey , 24 OUNCE BEER (2-4) Age of first use: 19 Date of last use: 08/11/19 Admission Physical Exam [facility] - Vital Signs Vital Signs: Vital Signs - 24 hr 08/13/19 11:55 Temperature 98.6 F Pulse Rate 56 L Respiratory 18 Rate Blood Pressure 120/64 - Physical General Appearance: Yes: Within Normal Limits HEENTM: Yes: Within Normal Limits, Hearing grossly Normal, Normocephalic Respiratory: Yes: Within Normal Limits Neck: Yes: Within Normal Limits Cardiology: Yes: Within Normal Limits Abdominal: Yes: Within Normal Limits Genitourinary: Yes: Within Normal Limits Back: Yes: Within Normal Limits Musculoskeletal: Yes: Within Normal Limits Extremities: Yes: Within Normal Limits, Other (dry skin on legs) Neurological: Yes: Within Normal Limits Integumentary: Yes: Other (raised black lesion on side of nose about 1 inch by 1 /4 inch- pt states will have go to [facility]) Lymphatic: Yes: Within Normal Limits - Diagnostic (1) Alcohol dependence with uncomplicated withdrawal Current Visit: No Status: Acute (2) Essential hypertension Current Visit: No Status: Chronic (3) History of craniotomy Current Visit: No Status: Chronic (4) Numerous skin moles Current Visit: No Status: Chronic (5) Positive PPD Current Visit: No Status: Resolved Breathalyzer - Breathalyzer Breathalyzer: 0.019 Urine Drug Screen - Test Device Lot number: [id number] Expiration date: 04/24/21 - Control Is test valid?: Yes - Results Drug screen NEGATIVE: No Urine drug screen results: BZO-Benzodiazepines Inpatient Rehab Admission - Rehab Decision to Admit Inpatient rehab admission?: Yes - Initial Determination Are CD services needed?: Yes Free of communicable disease: Yes Not in need of hospitalization: Yes - Rehab Admission Criteria Previous failed treatment: Yes Poor recovery environment: Yes Comorbidities: Yes Lacks judgement: Yes Patient is meeting Inpatient Rehab admission criteria:: Yes (pt with alcohol use disorder- )
[2019-08-13] MEDS ORDERED: P-EPHED 60MG/TRIPROLIDI 2.5MG TABLET PO PRN (12:59)
[2019-08-13] MEDS ORDERED: MENTHOL/PHENOL 1 EACH UD MM PRN (12:59)
[2019-08-13] MEDS ORDERED: MAG HYDROX/AL HYDROX/SIMETH 30 ML UNIT-DOSE CUP PO PRN (12:59)
[2019-08-13] MEDS ORDERED: guaiFENesin 200 MG/10 ML 10 ML UNIT-DOSE CUPS PO PRN (12:59)
[2019-08-13] MEDS ORDERED: IBUPROFEN 400 MG TABLET (FP) PO PRN (12:59)
[2019-08-13] MEDS ORDERED: MAGNESIUM CITRATE 300 ML BOTTLE PO PRN (12:59)
[2019-08-13] MEDS ORDERED: MAGNESIUM HYDROX 2400MG/30ML ORAL SUSPENSION 30 ML CUP PO PRN (12:59)
[2019-08-13] MEDS ORDERED: hydrOXYzine PAMOATE 25 MG CAPSULE (FP) PO PRN (12:59)
[2019-08-13] MEDS ORDERED: ACETAMINOPHEN 325 MG TABLET (FP) PO PRN (12:59)
[2019-08-13] MEDS ORDERED: LOPERAMIDE HCL 2 MG CAPSULE PO PRN (12:59)
[2019-08-13 16:01] LABS: HEMATOCRIT 41.3 % (35.4-49); HEMOGLOBIN 13.5 GM/dL (11.7-16.9); MCH 29.2 pg (25.7-33.7); MCHC 32.8 g/dl (32.0-35.9); MEAN CELL VOLUME 89.1 fl (80-96); MEAN PLT VOLUME 8.9 fl (7.5-11.1); PLATELET COUNT 145 K/MM3 (134-434); RBC 4.64 M/mm3 (4.00-5.60); RDW 14.6 % (11.9-15.9); WHITE BLOOD COUNT 6.5 K/mm3 (4.0-10.0)
[2019-08-13 16:35] LABS: ALBUMIN 3.8 g/dl (3.4-5.0); BILIRUBIN,TOTAL 0.4 mg/dL (0.2-1); BLOOD UREA NITROGEN 18.3 mg/dL (7-18); CALCIUM 9.3 mg/dL (8.5-10.1); CREATININE 1.7 mg/dL (0.55-1.3); POTASSIUM 4.4 mmol/L (3.5-5.1); TOT PROT 7.6 g/dl (6.4-8.2)
[2019-08-13] MEDS ORDERED: MELATONIN 5 MG TABLETS PO PRN (22:00)
[2019-08-13] MEDS: THIAMINE HCL 100 MG TABLET (FP) PO SCH (23:00)
[2019-08-14] MEDS: TAMSULOSIN HCL 0.4 MG CAP PO SCH (09:00)
[2019-08-14] MEDS: METOPROLOL TARTRATE 25 MG TABLET (FP) PO SCH (09:50)
[2019-08-14] MEDS: PRENATAL VITAMINS W/ FOLIC ACID TABLET (FP) PO SCH (09:50)
[2019-08-14 10:15] LABS: URINE APPEARANCE CLEAR; URINE BILIRUBIN NEGATIVE (NEGATIVE); URINE COLOR YELLOW; URINE GLUCOSE (UA) NEGATIVE (NEGATIVE); URINE KETONE NEGATIVE (NEGATIVE); URINE LEUK ESTERASE NEGATIVE (NEGATIVE); URINE NITRITE NEGATIVE (NEGATIVE); URINE PROTEIN NEGATIVE (NEGATIVE)
[2019-08-14] MEDS: THIAMINE HCL 100 MG TABLET (FP) PO SCH (21:59)
[2019-08-15] MEDS: TAMSULOSIN HCL 0.4 MG CAP PO SCH (09:20)
[2019-08-15] MEDS: PRENATAL VITAMINS W/ FOLIC ACID TABLET (FP) PO SCH (10:12)
[2019-08-15] MEDS: METOPROLOL TARTRATE 25 MG TABLET (FP) PO SCH (10:13)
[2019-08-15] MEDS: THIAMINE HCL 100 MG TABLET (FP) PO SCH (23:09)
[2019-08-16] MEDS: METOPROLOL TARTRATE 25 MG TABLET (FP) PO SCH (10:05)
[2019-08-16] MEDS: TAMSULOSIN HCL 0.4 MG CAP PO SCH (10:05)
[2019-08-16] MEDS: PRENATAL VITAMINS W/ FOLIC ACID TABLET (FP) PO SCH (10:05)
--- NOTE | 2019-08-16 12:55 | PN ---
S Progress Note (SOAP) Subjective: patient requesting to have his BP taken again because it was high. He had taken his BP medication only 15 minutes prior. Review of his chart indicates that he was on Lopressor and Lisinopril. The lisinopril was not ordered. Patient also wanted to discuss a lesion on his face that developed 2 years ago and inform me of a hx of enlarged prostate. States that the provider he saw at [facility] recommended removal of the lesion on his face and further evaluation of his prostate. Objective: General: No apparent distress HEENTM: edentulous, normocephalic, Lungs: clear Heart: s1 s2 genitourinary: deferred SKIN: one 1/2 lesion on left side of face next to nose and below eye. Irregular border, raised, dark brown to black, 08/16/19 12:51 CBC, BMP 08/13/19 13:10 08/13/19 13:10 Vital Signs (72 hours) 08/13/19 08/14/19 08/14/19 14:49 00:30 03:30 Temperature 97.1 F L Pulse Rate 49 L Respiratory 16 20 20 Rate Blood Pressure 140/75 08/14/19 08/14/19 08/15/19 07:18 11:57 00:30 Temperature 97.7 F Pulse Rate 65 61 Respiratory 18 18 20 Rate Blood Pressure 144/79 163/79 08/15/19 08/15/19 08/15/19 03:30 07:00 09:29 Temperature 98.2 F 97.3 F L Pulse Rate 59 L 67 Respiratory 20 18 18 Rate Blood Pressure 158/85 161/76 08/16/19 08/16/19 08/16/19 00:30 03:30 07:00 Temperature 97.5 F L Pulse Rate 59 L Respiratory 18 18 18 Rate Blood Pressure 170/86 08/16/19 09:35 Temperature Pulse Rate 61 Respiratory Rate Blood Pressure 165/79 Assessment: hypertension suspicious lesion HX of enlarged prostate 08/16/19 12:55 08/16/19 12:55 08/16/19 12:56 Plan: HTN: added lisinopril to medication regimen, will continue to monitor Skin lesion: encouraged patient to follow up with PCP for referral to dermatology Prostate enlargement: encouraged patient to follow up with PCP for further evaluation. Discussed the importance of following up with both issues, patient understood instruction and agreed to follow up. Added Ensure to diet because of age and hx of ETOH use.
[2019-08-16] MEDS: LISINOPRIL 10 MG TABLET (FP) PO SCH ×2 (14:32→22:33)
[2019-08-16] MEDS: THIAMINE HCL 100 MG TABLET (FP) PO SCH (22:33)
[2019-08-17] MEDS: TAMSULOSIN HCL 0.4 MG CAP PO SCH (07:44)
[2019-08-17] MEDS: PRENATAL VITAMINS W/ FOLIC ACID TABLET (FP) PO SCH (10:34)
[2019-08-17] MEDS: LISINOPRIL 10 MG TABLET (FP) PO SCH ×2 (10:34→21:45)
[2019-08-17] MEDS: METOPROLOL TARTRATE 25 MG TABLET (FP) PO SCH (10:35)
[2019-08-17] MEDS: THIAMINE HCL 100 MG TABLET (FP) PO SCH (21:45)
[2019-08-18] MEDS: METOPROLOL TARTRATE 25 MG TABLET (FP) PO SCH (10:22)
[2019-08-18] MEDS: TAMSULOSIN HCL 0.4 MG CAP PO SCH (10:22)
[2019-08-18] MEDS: PRENATAL VITAMINS W/ FOLIC ACID TABLET (FP) PO SCH (10:22)
[2019-08-18] MEDS: LISINOPRIL 10 MG TABLET (FP) PO SCH ×2 (10:22→21:46)
[2019-08-18] MEDS: THIAMINE HCL 100 MG TABLET (FP) PO SCH (21:46)
[2019-08-19] MEDS: TAMSULOSIN HCL 0.4 MG CAP PO SCH (10:18)
[2019-08-19] MEDS: PRENATAL VITAMINS W/ FOLIC ACID TABLET (FP) PO SCH (10:18)
[2019-08-19] MEDS: METOPROLOL TARTRATE 25 MG TABLET (FP) PO SCH (10:18)
[2019-08-19] MEDS: LISINOPRIL 10 MG TABLET (FP) PO SCH ×2 (10:18→21:02)
[2019-08-19] MEDS: THIAMINE HCL 100 MG TABLET (FP) PO SCH (21:02)
[2019-08-20] MEDS: PRENATAL VITAMINS W/ FOLIC ACID TABLET (FP) PO SCH (09:58)
[2019-08-20] MEDS: TAMSULOSIN HCL 0.4 MG CAP PO SCH (09:58)
[2019-08-20] MEDS: LISINOPRIL 10 MG TABLET (FP) PO SCH ×2 (09:58→21:58)
[2019-08-20] MEDS: METOPROLOL TARTRATE 25 MG TABLET (FP) PO SCH (09:58)
[2019-08-20] MEDS: THIAMINE HCL 100 MG TABLET (FP) PO SCH (21:58)
[2019-08-21] MEDS: METOPROLOL TARTRATE 25 MG TABLET (FP) PO SCH (10:09)
[2019-08-21] MEDS: LISINOPRIL 10 MG TABLET (FP) PO SCH ×2 (10:09→21:58)
[2019-08-21] MEDS: TAMSULOSIN HCL 0.4 MG CAP PO SCH (10:09)
[2019-08-21] MEDS: PRENATAL VITAMINS W/ FOLIC ACID TABLET (FP) PO SCH (10:09)
[2019-08-21] MEDS: THIAMINE HCL 100 MG TABLET (FP) PO SCH (21:58)
[2019-08-22] MEDS: TAMSULOSIN HCL 0.4 MG CAP PO SCH (08:12)
[2019-08-22] MEDS: METOPROLOL TARTRATE 25 MG TABLET (FP) PO SCH (10:12)
[2019-08-22] MEDS: PRENATAL VITAMINS W/ FOLIC ACID TABLET (FP) PO SCH (10:12)
[2019-08-22] MEDS: LISINOPRIL 10 MG TABLET (FP) PO SCH ×2 (10:13→21:53)
[2019-08-22] MEDS: THIAMINE HCL 100 MG TABLET (FP) PO SCH (21:53)
[2019-08-23] MEDS: TAMSULOSIN HCL 0.4 MG CAP PO SCH (08:16)
[2019-08-23] MEDS: LISINOPRIL 10 MG TABLET (FP) PO SCH ×2 (10:16→21:46)
[2019-08-23] MEDS: METOPROLOL TARTRATE 25 MG TABLET (FP) PO SCH (10:16)
[2019-08-23] MEDS: PRENATAL VITAMINS W/ FOLIC ACID TABLET (FP) PO SCH (10:16)
[2019-08-23] MEDS: THIAMINE HCL 100 MG TABLET (FP) PO SCH (21:46)
[2019-08-24] MEDS: LISINOPRIL 10 MG TABLET (FP) PO SCH ×2 (09:35→22:08)
[2019-08-24] MEDS: METOPROLOL TARTRATE 25 MG TABLET (FP) PO SCH (09:35)
[2019-08-24] MEDS: TAMSULOSIN HCL 0.4 MG CAP PO SCH (09:35)
[2019-08-24] MEDS: PRENATAL VITAMINS W/ FOLIC ACID TABLET (FP) PO SCH (09:35)
[2019-08-24] MEDS: THIAMINE HCL 100 MG TABLET (FP) PO SCH (22:08)
[2019-08-25] MEDS: TAMSULOSIN HCL 0.4 MG CAP PO SCH (09:30)
[2019-08-25] MEDS: LISINOPRIL 10 MG TABLET (FP) PO SCH ×2 (09:45→21:35)
[2019-08-25] MEDS: METOPROLOL TARTRATE 25 MG TABLET (FP) PO SCH (09:45)
[2019-08-25] MEDS: PRENATAL VITAMINS W/ FOLIC ACID TABLET (FP) PO SCH (09:45)
[2019-08-25] MEDS: THIAMINE HCL 100 MG TABLET (FP) PO SCH (21:35)
[2019-08-26] MEDS: TAMSULOSIN HCL 0.4 MG CAP PO SCH (09:24)
[2019-08-26] MEDS: METOPROLOL TARTRATE 25 MG TABLET (FP) PO SCH (09:24)
[2019-08-26] MEDS: LISINOPRIL 10 MG TABLET (FP) PO SCH ×2 (09:24→21:42)
[2019-08-26] MEDS: PRENATAL VITAMINS W/ FOLIC ACID TABLET (FP) PO SCH (09:25)
[2019-08-26] MEDS: THIAMINE HCL 100 MG TABLET (FP) PO SCH (21:42)
[2019-08-27] MEDS: TAMSULOSIN HCL 0.4 MG CAP PO SCH (08:29)
[2019-08-27] MEDS: PRENATAL VITAMINS W/ FOLIC ACID TABLET (FP) PO SCH (10:29)
[2019-08-27] MEDS: METOPROLOL TARTRATE 25 MG TABLET (FP) PO SCH (10:29)
[2019-08-27] MEDS: LISINOPRIL 10 MG TABLET (FP) PO SCH ×2 (10:29→21:31)
--- NOTE | 2019-08-27 11:05 | PN ---
[facility] Progress Note Note: PATIENT FOR DISCHARGE TODAY FROM REHAB FOR ETOH DEPENDENCE. PATIENT NOTED WITH ELEVATED BP OF 195/101 THIS AM AND REPORTS TO PROVIDER HE VOMITED X ONE UNWITNESSED. PATIENT DENIES CHEST PAIN, SOB, LEFT ARM NUMBNESS AND TINGLING AND DIZZINESS. Laboratory Tests 08/13/19 08/13/19 08/14/19 13:10 13:10 08:00 WBC 6.5 RBC 4.64 Hgb 13.5 Hct 41.3 MCV 89.1 MCH 29.2 MCHC 32.8 RDW 14.6 Plt Count 145 MPV 8.9 Sodium 140 Potassium 4.4 Chloride 106 Carbon Dioxide 30 Anion Gap 4 L BUN 18.3 H Creatinine 1.7 H Est GFR (CKD-EPI)AfAm 43.79 Est GFR (CKD-EPI)NonAf 37.79 Random Glucose 101 Calcium 9.3 Total Bilirubin 0.4 AST 25 ALT 37 Alkaline Phosphatase 92 Total Protein 7.6 Albumin 3.8 Urine Color Yellow Urine Appearance Clear Urine pH 7.0 Ur Specific [place] 1.014 Urine Protein Negative Urine Glucose (UA) Negative Urine Ketones Negative Urine Blood Negative Urine Nitrite Negative Urine Bilirubin Negative Urine Urobilinogen 1.0 Ur Leukocyte Esterase Negative Vital Signs - 24 hr 08/26/19 08/27/19 08/27/19 20:42 00:30 03:30 Pulse Rate 58 L Respiratory 18 18 18 Rate Blood Pressure 156/77 08/27/19 07:14 Pulse Rate Respiratory 18 Rate Blood Pressure PE: ALERT AND ORIENTED X 3 SKIN WARM AND DRY +PERRLA EOMS INTACT BL NECK SUPPLE, NO JVD CAR S1S2, RRR RESP CTA BL, NO WHEEZES/RHONCHI GI NT, ND, BS+ EXT FULL ROM, AMB AD ALF A/P: ELEVATED BP NON-WITNESSED VOMITING EPISODE EKG STAT ORDERED SHOWS NSR VOMITING RESOLVED HTN NOT OPTIMALLY CONTROLLED DUE TO NONCOMPLIANCE WITH MEDS AFTER MEDICATION , BP IMPROVED TO 131/93 DUE TO AGE, SYMPTOMS AND BP ELEVATION, WILL HOLD D/C FOR MONITORING TODAY IF STABLE IN AM, MAY BE DISCHARGE AFTER PROVIDER EVALUATION.
--- NOTE | 2019-08-27 12:00 | EKG ---
Test Reason : Blood Pressure : / mmHG Vent. Rate : 064 BPM Atrial Rate : 064 BPM P-R Int : 146 ms QRS Dur : 086 ms QT Int : 406 ms P-R-T Axes : 067 038 031 degrees QTc Int : 418 ms NORMAL SINUS RHYTHM NORMAL ECG WHEN COMPARED WITH ECG OF 30-JUN-2018 22:32, T WAVE VARIATION Confirmed by PENNY GALO MD ([id number]) on 08/27/2019 11:59:45 AM Referred By: DAQUAN PAVON Confirmed By:PENNY GALO MD
[2019-08-27] MEDS: THIAMINE HCL 100 MG TABLET (FP) PO SCH (21:31)
[2019-08-28 06:41] VITALS: TEMP 97.5
[2019-08-28] MEDS: TAMSULOSIN HCL 0.4 MG CAP PO SCH (09:19)
[2019-08-28] MEDS: PRENATAL VITAMINS W/ FOLIC ACID TABLET (FP) PO SCH (09:19)
[2019-08-28] MEDS: LISINOPRIL 10 MG TABLET (FP) PO SCH (09:19)
[2019-08-28] MEDS: METOPROLOL TARTRATE 25 MG TABLET (FP) PO SCH (09:19)
--- NOTE | 2019-08-28 09:44 | DS ---
[facility] Rehab Discharge Summary - [facility] Rehab Discharge Summary Admission Date: 08/13/19 Discharge Date: 08/28/19 - History Present History: Alcohol dependence Pertinent Past History: Dakotah Stewart is a 79 year old male was here for alcohol rehab for 2 weeks. Pt to go to outpt rehab. Pt stays in a hotel. $90/day. Pt states about to get money from [employer] later this month. PCP- at [facility]- pt usually goes to ER for medical care, says will go there for primary care. PE: Vital Signs - 24 hr 08/28/19 08/28/19 03:30 06:40 Temperature 97.5 F L Pulse Rate 66 Respiratory 20 18 Rate Blood Pressure 166/72 alert and oriented lungs clear Laboratory Tests 08/13/19 08/13/19 08/14/19 13:10 13:10 08:00 WBC 6.5 RBC 4.64 Hgb 13.5 Hct 41.3 MCV 89.1 MCH 29.2 MCHC 32.8 RDW 14.6 Plt Count 145 MPV 8.9 Sodium 140 Potassium 4.4 Chloride 106 Carbon Dioxide 30 Anion Gap 4 L BUN 18.3 H Creatinine 1.7 H Est GFR (CKD-EPI)AfAm 43.79 Est GFR (CKD-EPI)NonAf 37.79 Random Glucose 101 Calcium 9.3 Total Bilirubin 0.4 AST 25 ALT 37 Alkaline Phosphatase 92 Total Protein 7.6 Albumin 3.8 Urine Color Yellow Urine Appearance Clear Urine pH 7.0 Ur Specific [place] 1.014 Urine Protein Negative Urine Glucose (UA) Negative Urine Ketones Negative Urine Blood Negative Urine Nitrite Negative Urine Bilirubin Negative Urine Urobilinogen 1.0 Ur Leukocyte Esterase Negative a/p: Use disorder- pt better today after completing detox and rehab. BPH/HTN: pt will f/u with PCP. Increased Cr- d/w pt needs f/u - Discharge Physical Exam Vital Signs: Vital Signs Temperature 97.5 F L 08/28/19 06:40 Pulse Rate 66 08/28/19 06:40 Respiratory Rate 18 08/28/19 06:40 Blood Pressure 166/72 08/28/19 06:40 O2 Sat by Pulse Oximetry (%) - Medication Discharge Medications: Ambulatory Orders Amlodipine Besylate [Norvasc -] 10 mg PO DAILY 14 Days #14 tablet 07/08/19 Lisinopril 10 mg PO BID #30 tablet 08/27/19 Metoprolol Tartrate 25 mg PO DAILY #14 tablet 08/27/19 Tamsulosin HCl [Flomax] 0.4 mg PO DAILY #14 capsule 08/27/19 - Discharge Instructions Diet, activity, other medical instructions: Diet: Activity: Other medical instructions: - Diagnosis (1) Alcohol dependence with uncomplicated withdrawal Current Visit: No Status: Acute (2) Essential hypertension Current Visit: No Status: Chronic (3) History of craniotomy Current Visit: No Status: Chronic (4) Numerous skin moles Current Visit: No Status: Chronic - Follow-up Referral Minutes to complete discharge: 30 - AMA Did Patient Leave Against Medical Advice: No
[2019-08-28 10:34] VITALS: BP 144/66; PULSE 74
== END 2019-08-28 10:05 | disposition home or self-care (01) | DRG 895 ==
LOC: YASAS 10:39 → Y3W 12:53
PROVIDERS: ADMIT Neuromusculoskeletal Medicine & OMM; ATTEND Neuromusculoskeletal Medicine & OMM
PROC: HZ42ZZZ Group Counseling for Substance Abuse Treatment, Cognitive-Behavioral (ICD-10-PCS; principal; 2019-08-13)
DX: F10.20 Alcohol dependence, uncomplicated (principal); I10 Essential (primary) hypertension; D57.3 Sickle-cell trait; D22.9 Melanocytic nevi, unspecified; N40.0 Benign prostatic hyperplasia without lower urinary tract symptoms; R76.11 Nonspecific reaction to tuberculin skin test without active tuberculosis; Z98.890 Other specified postprocedural states; Z87.828 Personal history of other (healed) physical injury and trauma
CPT/HCPCS: 36415; 80053; 81003; 85027; 93005; 93010

== ENCOUNTER 2019-11-16 12:19 | Inpatient (IN) | payer OTHER ==
--- NOTE | 2019-11-16 12:57 | BHS.RME ---
Substance Use & Tx History - Substance Use History Alcohol Substance amount: 1 quart Rum daily, 4 x 24 ounce beer daily Frequency of use: Daily Substance route: Smoking Physical/Psych/Mental Status - Behavior Eye Contact: Normal - Cooperativeness Cooperativeness: Cooperative - Thinking Thought Processes: Tight Thought content: Future oriented - Physical Health Problems Is patient presently having any pain?: No Does patient presently have any injuries (include location): No Does patient currently have a fever: No Is patient : No CIWA Nausea/Vomitin-No Nausea/No Vomiting Muscle Tremors: 3 Anxiety: 2 Agitation: 1-Slight > Activity Paroxysmal Sweats: No Perspiration Orientation: 2-Disoriented Date<2 days Tacttile Disturbances: 0-None Auditory Disturbances: 0-None Visual Disturbances: 0-None Headache: 0-None Present CIWA-Ar Total Score: 8
--- NOTE | 2019-11-16 14:56 | HP ---
CIWA Score Nausea/Vomitin-Mild Nausea/No Vomiting Muscle Tremors: 3 Anxiety: 2 Agitation: 3 Paroxysmal Sweats: 1-Minimal Palms Moist Orientation: 0-Oriented Tacttile Disturbances: 1-Very Mild Itch/Numbness Auditory Disturbances: 0-None Visual Disturbances: 0-None Headache: 2-Mild CIWA-Ar Total Score: 13 - Admission Criteria OASAS Guidelines: Admission for Medically Managed Detox: Requires at least one of the followin. CIWA greater than 12 2. Seizures within the past 24 hours 3. Delirium tremens within the past 24 hours 4. Hallucinations within the past 24 hours 5. Acute intervention needed for co occurring medical disorder 6. Acute intervention needed for co occurring psychiatric disorder 7. Severe withdrawal that cannot be handled at a lower level of care (continued vomiting, continued diarrhea, abnormal vital signs) requiring intravenous medication and/or fluids 8. Admitting History and Physical - Admission Chief Complaint: i am here today to stop drinking History of Present Illness: this 79 years old male with alcohol dependence,seeking detox from alcohol, denied seizure,syncope history of hypertension,bph, multiple admissions in detox and rehab History Source: Patient Limitations to Obtaining History: No Limitations - Past Medical History SURGERY ASSISTANT: Yes: Syncope Cardiovascular: Yes: HTN Additional Past Medical History: bph - Past Surgical History Additional Past Surgical History: tonsillecty at age of 25 years removal of cyst from lower eyelid at age of 26 years - Smoking History Smoking history: Never smoked Have you smoked in the past 12 months: No Aproximately how many cigarettes per day: 0 - Alcohol/Substance Use Hx Alcohol Use: Yes - Social History Usual Living Arrangement: Yes: Alone ADL: Independent Occupation: retired History of Recent Travel: No Admission ROS [facility] - [facility] Chief Complaint: jalen here to stop drinking alcohol Allergies/Adverse Reactions: Allergies Allergy/AdvReac Type Severity Reaction Status Date / Time No Known Allergies Allergy Verified 11/16/19 15:32 History of Present Illness: this 79 years old male with alcohol dependence,seeking detox,withdrawal symptom, denied seizure syncope history of hypertension,bph, multiple admissions in detox and rehab,last [facility] 07/05/19 to 07/09/19,rehab 08/13 to 08/28/19 longest sobriety 1 year plan for rehab after detox Exam Limitations: No Limitations - Ebola screening Have you traveled outside of the country in the last 21 days: No Have you had contact with anyone from an Ebola affected area: No Have you been sick,other than usual withdrawal symptoms: No Do you have a fever: No - Review of Systems Constitutional: Loss of Appetite, Malaise, Night Sweats, Changes in sleep EENT: reports: Nose Congestion Respiratory: reports: No Symptoms reported Cardiac: reports: No Symptoms Reported GI: reports: Nausea, Vomiting, Abdominal cramping : reports: No Symptoms Reported Musculoskeletal: reports: Back Pain, Muscle Pain Integumentary: reports: Dryness Neuro: reports: Tremors Endocrine: reports: No Symptoms Reported Hematology: reports: No Symptoms Reported Psychiatric: reports: No Sypmtoms Reported, Judgement Intact, Mood/Affect Appropiate, Orientated x3 Other Systems: Reviewed and Negative Patient History - Patient Medical History Hx Anemia: No Hx Asthma: No Hx Chronic Obstructive Pulmonary Disease (COPD): No Hx Cancer: No Hx Cardiac Disorders: No Hx Congestive Heart Failure: No Hx Hypertension: Yes (on med) Hx Hypercholesterolemia: No Hx Pacemaker: No HX Cerebrovascular Accident: No Hx Seizures: No Hx Dementia: No Hx Diabetes: No Hx Gastrointestinal Disorders: No Hx Liver Disease: No Hx Genitourinary Disorders: No Hx Sexually Transmitted Disorders: No Hx Renal Disease (ESRD): No Hx Thyroid Disease: No Hx Human Immunodeficiency Virus (HIV): No (last 2017 negative) Hx Hepatitis C: No Hx Depression: No Hx Suicide Attempt: No Hx Bipolar Disorder: No Hx Schizophrenia: No Other Medical History: no suicidal,no homicidal - Patient Surgical History Past Surgical History: Yes Hx Neurologic Surgery: Yes (head trauma ([place] [facility]at age of 49 years) Hx Cataract Extraction: No Hx Cardiac Surgery: No Hx Lung Surgery: No Hx Breast Surgery: No Hx Breast Biopsy: No Hx Abdominal Surgery: No Hx Appendectomy: No Hx Cholecystectomy: No Hx Genitourinary Surgery: No Hx Orthopedic Surgery: No Other Surgical History: ,tonsilectomy 26yrs,SURGERY OF TEAR DUCT RIGHT 40 YEARS AGO Anesthesia Reaction: No - PPD History Previous Implant?: Yes Documented Results: Positive w/proof Implanted On Prior R Admission?: No Results: negative chest PPD to be Administered?: No - Smoking Cessation Smoking history: Never smoked Have you smoked in the past 12 months: No Aproximately how many cigarettes per day: 0 Cigars Per Day: 0 Hx Chewing Tobacco Use: No - Substance & Tx. History Hx Alcohol Use: Yes Hx Substance Use: No Substance Use Type: Alcohol Hx Substance Use Treatment: Yes ([facility] 07/05/19 to 07/09/19 detox,08/13/19 tto 12/12 rehab) - Substances abused Alcohol Substance route: Oral Frequency: Daily Amount used: 2 pints of bacardi and rum/4 of 24 ozs of beer Age of first use: 19 Date of last use: 11/16/19 Admission Physical Exam [facility] - Physical General Appearance: Yes: Moderate Distress, Tremorous, Irritable, Sweating, Anxious HEENTM: Yes: Normal ENT Inspection, MIRIAN, Pharynx Normal, Other (craniotmy scar right) Respiratory: Yes: Lungs Clear, Normal Breath Sounds, No Respiratory Distress Neck: Yes: Within Normal Limits, Supple, Trachea in good position Breast: Yes: Within Normal Limits Cardiology: Yes: Within Normal Limits, Regular Rhythm, Regular Rate, S1, S2 Abdominal: Yes: Within Normal Limits, Normal Bowel Sounds, Non Tender, Soft Genitourinary: Yes: Within Normal Limits Back: Yes: Muscle Spasm Musculoskeletal: Yes: Back pain, Muscle Pain Extremities: Yes: Tremors 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 NML intact, Fully Oriented, Alert, Motor Strength 5/5 Integumentary: Yes: Dry, Other (multiple nevi) Lymphatic: Yes: Within Normal Limits - Diagnostic (1) Alcohol dependence with uncomplicated withdrawal Current Visit: No Status: Acute (2) BPH (benign prostatic hyperplasia) Current Visit: No Status: Acute (3) Essential hypertension Current Visit: No Status: Chronic (4) History of craniotomy Current Visit: No Status: Chronic (5) History of head injury Current Visit: No Status: Chronic (6) Positive PPD Current Visit: No Status: Resolved (7) Syncope Current Visit: Yes Status: Acute Cleared for Admission [facility] - Detox or Rehab [facility] Level of Care: Medically Managed Detox Regimen/Protocol: Librium Breathalyzer - Breathalyzer Breathalyzer: 0.033 Urine Drug Screen - Test Device Lot number: [id number] Expiration date: 08/25/21 - Control Is test valid?: Yes - Results Drug screen NEGATIVE: No Urine drug screen results: BZO-Benzodiazepines Inpatient Rehab Admission - Rehab Decision to Admit Inpatient rehab admission?: No
[2019-11-16] MEDS ORDERED: MELATONIN 5 MG TABLETS PO PRN (15:21)
[2019-11-16] MEDS ORDERED: MAG HYDROX/AL HYDROX/SIMETH 30 ML UNIT-DOSE CUP PO PRN (15:21)
[2019-11-16] MEDS ORDERED: IBUPROFEN 400 MG TABLET (FP) PO PRN (15:21)
[2019-11-16] MEDS ORDERED: METHOCARBAMOL 500 MG TABLET PO PRN (15:21)
[2019-11-16] MEDS ORDERED: MENTHOL/PHENOL 1 EACH UD MM PRN (15:21)
[2019-11-16] MEDS ORDERED: MAGNESIUM HYDROX 2400MG/30ML ORAL SUSPENSION 30 ML CUP PO PRN (15:21)
[2019-11-16] MEDS ORDERED: BISMUTH SUBSALICYLATE 262 MG/15 ML BTL PO PRN (15:21)
[2019-11-16] MEDS ORDERED: ACETAMINOPHEN 325 MG TABLET (FP) PO PRN ×2 (15:21)
[2019-11-16] MEDS ORDERED: chlordiazePOXIDE HCL 25 MG CAPSULE PO PRN (15:21)
[2019-11-16] MEDS ORDERED: MAGNESIUM CITRATE 300 ML BOTTLE PO PRN (15:21)
[2019-11-16] MEDS ORDERED: hydrOXYzine PAMOATE 25 MG CAPSULE (FP) PO PRN (15:21)
[2019-11-16 15:39] VITALS: BMI 29.8
[2019-11-16] MEDS: amLODIPine BESYLATE 10 MG TABLET (FP) PO SCH (16:57)
[2019-11-16] MEDS: chlordiazePOXIDE HCL 25 MG CAPSULE PO SCH ×2 (16:57→22:13)
[2019-11-16] MEDS: METOPROLOL TARTRATE 25 MG TABLET (FP) PO SCH (16:57)
[2019-11-16] MEDS: TAMSULOSIN HCL 0.4 MG CAP PO SCH (16:57)
[2019-11-16] MEDS: THIAMINE HCL 100 MG TABLET (FP) PO SCH (22:13)
[2019-11-16] MEDS: LISINOPRIL 10 MG TABLET (FP) PO SCH (22:13)
[2019-11-17] MEDS: chlordiazePOXIDE HCL 25 MG CAPSULE PO SCH ×4 (06:39→22:23)
[2019-11-17 09:36] LABS: HEMOGLOBIN 12.7 GM/dL (11.7-16.9); MCH 29.1 pg (25.7-33.7); MCHC 33.4 g/dl (32.0-35.9); MEAN CELL VOLUME 87.2 fl (80-96); MEAN PLT VOLUME 8.1 fl (7.5-11.1); PLATELET COUNT 155 K/MM3 (134-434); RBC 4.36 M/mm3 (4.00-5.60); RDW 14.4 % (11.9-15.9); WHITE BLOOD COUNT 6.2 K/mm3 (4.0-10.0)
[2019-11-17 09:59] LABS: BILIRUBIN,TOTAL 0.4 mg/dL (0.2-1); BLOOD UREA NITROGEN 16.4 mg/dL (7-18); CALCIUM 8.5 mg/dL (8.5-10.1); CREATININE 1.5 mg/dL (0.55-1.3); POTASSIUM 4.5 mmol/L (3.5-5.1); TOT PROT 6.5 g/dl (6.4-8.2)
[2019-11-17] MEDS: PRENATAL VITAMINS W/ FOLIC ACID TABLET (FP) PO SCH (10:45)
[2019-11-17] MEDS: TAMSULOSIN HCL 0.4 MG CAP PO SCH (10:45)
[2019-11-17] MEDS: LISINOPRIL 10 MG TABLET (FP) PO SCH ×2 (10:45→22:23)
[2019-11-17] MEDS: amLODIPine BESYLATE 10 MG TABLET (FP) PO SCH (10:45)
[2019-11-17] MEDS: METOPROLOL TARTRATE 25 MG TABLET (FP) PO SCH (10:46)
--- NOTE | 2019-11-17 11:25 | PN ---
S CIWA - CIWA Score Nausea/Vomitin-No Nausea/No Vomiting Muscle Tremors: 2 Anxiety: 3 Agitation: 0-Normal Activity Paroxysmal Sweats: 3 Orientation: 0-Oriented Tacttile Disturbances: 0-None Auditory Disturbances: 0-None Visual Disturbances: 0-None Headache: 2-Mild CIWA-Ar Total Score: 10 [facility] Progress Note (SOAP) Subjective: c/o anxiety, sweats, and headache. Objective: 11/17/19 11:24 Vital Signs 11/17/19 11/17/19 11/17/19 03:30 07:47 09:08 Temperature 97.9 F 96.2 F L Pulse Rate 65 72 Respiratory 18 18 18 Rate Blood Pressure 104/56 L 113/62 Laboratory Last Values WBC 6.2 K/mm3 (4.0-10.0) 11/17/19 07:00 RBC 4.36 M/mm3 (4.00-5.60) 11/17/19 07:00 Hgb 12.7 GM/dL (11.7-16.9) 11/17/19 07:00 Hct 38.0 % (35.4-49) 11/17/19 07:00 MCV 87.2 fl (80-96) 11/17/19 07:00 MCH 29.1 pg (25.7-33.7) 11/17/19 07:00 MCHC 33.4 g/dl (32.0-35.9) 11/17/19 07:00 RDW 14.4 % (11.9-15.9) 11/17/19 07:00 Plt Count 155 K/MM3 (134-434) 11/17/19 07:00 MPV 8.1 fl (7.5-11.1) 11/17/19 07:00 Sodium 142 mmol/L (136-145) 11/17/19 07:00 Potassium 4.5 mmol/L (3.5-5.1) 11/17/19 07:00 Chloride 110 mmol/L (98-107) H 11/17/19 07:00 Carbon Dioxide 27 mmol/L (21-32) 11/17/19 07:00 Anion Gap 6 MMOL/L (8-16) L 11/17/19 07:00 BUN 16.4 mg/dL (7-18) 11/17/19 07:00 Creatinine 1.5 mg/dL (0.55-1.3) H 11/17/19 07:00 Est GFR (CKD-EPI)AfAm 50.95 11/17/19 07:00 Est GFR (CKD-EPI)NonAf 43.96 11/17/19 07:00 Random Glucose 88 mg/dL (74-106) 11/17/19 07:00 Calcium 8.5 mg/dL (8.5-10.1) 11/17/19 07:00 Total Bilirubin 0.4 mg/dL (0.2-1) 11/17/19 07:00 AST 16 U/L (15-37) 11/17/19 07:00 ALT 18 U/L (13-61) 11/17/19 07:00 Alkaline Phosphatase 83 U/L (45-117) 11/17/19 07:00 Total Protein 6.5 g/dl (6.4-8.2) 11/17/19 07:00 Albumin 3.0 g/dl (3.4-5.0) L 11/17/19 07:00 RPR Titer Nonreactive (NONREACTIVE) 11/17/19 07:00 Labs noted. Assessment: 11/17/19 11:24 AOX3, in no acute respiratory distress. Full ROM, ambulating in the unit. Withdrawal symptoms. Plan: continue detox.
[2019-11-17] MEDS: THIAMINE HCL 100 MG TABLET (FP) PO SCH (22:23)
[2019-11-18] MEDS: chlordiazePOXIDE HCL 25 MG CAPSULE PO SCH ×4 (06:02→22:18)
--- NOTE | 2019-11-18 10:07 | PN ---
S CIWA - CIWA Score Nausea/Vomitin-No Nausea/No Vomiting Muscle Tremors: 2 Anxiety: 1-Mildly Anxious Agitation: 1-Slight > Activity Paroxysmal Sweats: 2 Orientation: 0-Oriented Tacttile Disturbances: 0-None Auditory Disturbances: 0-None Visual Disturbances: 1-Very Mild Sensitivity Headache: 0-None Present CIWA-Ar Total Score: 7 BHS Progress Note (SOAP) Subjective: 79 years old male admitted on 11/17/19 for alcohol withdrawal sx management treating with librium detox regiment repoets dry eyes artificial tears qid Objective: 11/18/19 10:08 Vital Signs Temperature 98.2 F 11/18/19 08:51 Pulse Rate 68 11/18/19 08:51 Respiratory Rate 16 11/18/19 08:51 Blood Pressure 125/75 11/18/19 08:51 O2 Sat by Pulse Oximetry (%) Laboratory Last Values WBC 6.2 K/mm3 (4.0-10.0) 11/17/19 07:00 RBC 4.36 M/mm3 (4.00-5.60) 11/17/19 07:00 Hgb 12.7 GM/dL (11.7-16.9) 11/17/19 07:00 Hct 38.0 % (35.4-49) 11/17/19 07:00 MCV 87.2 fl (80-96) 11/17/19 07:00 MCH 29.1 pg (25.7-33.7) 11/17/19 07:00 MCHC 33.4 g/dl (32.0-35.9) 11/17/19 07:00 RDW 14.4 % (11.9-15.9) 11/17/19 07:00 Plt Count 155 K/MM3 (134-434) 11/17/19 07:00 MPV 8.1 fl (7.5-11.1) 11/17/19 07:00 Sodium 142 mmol/L (136-145) 11/17/19 07:00 Potassium 4.5 mmol/L (3.5-5.1) 11/17/19 07:00 Chloride 110 mmol/L (98-107) H 11/17/19 07:00 Carbon Dioxide 27 mmol/L (21-32) 11/17/19 07:00 Anion Gap 6 MMOL/L (8-16) L 11/17/19 07:00 BUN 16.4 mg/dL (7-18) 11/17/19 07:00 Creatinine 1.5 mg/dL (0.55-1.3) H 11/17/19 07:00 Est GFR (CKD-EPI)AfAm 50.95 11/17/19 07:00 Est GFR (CKD-EPI)NonAf 43.96 11/17/19 07:00 Random Glucose 88 mg/dL (74-106) 11/17/19 07:00 Calcium 8.5 mg/dL (8.5-10.1) 11/17/19 07:00 Total Bilirubin 0.4 mg/dL (0.2-1) 11/17/19 07:00 AST 16 U/L (15-37) 11/17/19 07:00 ALT 18 U/L (13-61) 11/17/19 07:00 Alkaline Phosphatase 83 U/L (45-117) 11/17/19 07:00 Total Protein 6.5 g/dl (6.4-8.2) 11/17/19 07:00 Albumin 3.0 g/dl (3.4-5.0) L 11/17/19 07:00 RPR Titer Nonreactive (NONREACTIVE) 11/17/19 07:00 lab noted Assessment: 11/18/19 10:08 alcohol withdrawal Plan: librium regiment
[2019-11-18] MEDS: PRENATAL VITAMINS W/ FOLIC ACID TABLET (FP) PO SCH (10:21)
[2019-11-18] MEDS: METOPROLOL TARTRATE 25 MG TABLET (FP) PO SCH (10:21)
[2019-11-18] MEDS: TAMSULOSIN HCL 0.4 MG CAP PO SCH (10:21)
[2019-11-18] MEDS: amLODIPine BESYLATE 10 MG TABLET (FP) PO SCH (10:21)
[2019-11-18] MEDS: LISINOPRIL 10 MG TABLET (FP) PO SCH ×2 (10:21→22:18)
[2019-11-18] MEDS: ARTIFICIAL TEARS (POLYVINYL ALCOHOL) OPTH DROPS OU SCH ×3 (14:02→23:39)
[2019-11-18] MEDS: THIAMINE HCL 100 MG TABLET (FP) PO SCH (22:22)
[2019-11-19] MEDS ORDERED: chlordiazePOXIDE HCL 10 MG CAPSULE PO PRN
[2019-11-19] MEDS: chlordiazePOXIDE HCL 10 MG CAPSULE PO SCH ×4 (05:45→22:02)
--- NOTE | 2019-11-19 09:11 | PN ---
S CIWA - CIWA Score Nausea/Vomitin-No Nausea/No Vomiting Muscle Tremors: 1-None Visible, but [place] Anxiety: 0-No Anxiety, at Ease Agitation: 2 Paroxysmal Sweats: 1-Minimal Palms Moist Orientation: 0-Oriented Tacttile Disturbances: 0-None Auditory Disturbances: 0-None Visual Disturbances: 0-None Headache: 0-None Present CIWA-Ar Total Score: 4 BHS Progress Note (SOAP) Subjective: 79 years old male admitted on 11/17/19 for alcohol withdrawal sx management treating with librium detox regiment sitting on the edge of the bed eating breakfast feeling ok today ambulating on hallway discuss aftercare with staff Objective: 11/19/19 09:10 Vital Signs Temperature 97.6 F 11/19/19 08:32 Pulse Rate 76 11/19/19 08:32 Respiratory Rate 18 11/19/19 08:32 Blood Pressure 122/70 11/19/19 08:32 O2 Sat by Pulse Oximetry (%) Laboratory Last Values WBC 6.2 K/mm3 (4.0-10.0) 11/17/19 07:00 RBC 4.36 M/mm3 (4.00-5.60) 11/17/19 07:00 Hgb 12.7 GM/dL (11.7-16.9) 11/17/19 07:00 Hct 38.0 % (35.4-49) 11/17/19 07:00 MCV 87.2 fl (80-96) 11/17/19 07:00 MCH 29.1 pg (25.7-33.7) 11/17/19 07:00 MCHC 33.4 g/dl (32.0-35.9) 11/17/19 07:00 RDW 14.4 % (11.9-15.9) 11/17/19 07:00 Plt Count 155 K/MM3 (134-434) 11/17/19 07:00 MPV 8.1 fl (7.5-11.1) 11/17/19 07:00 Sodium 142 mmol/L (136-145) 11/17/19 07:00 Potassium 4.5 mmol/L (3.5-5.1) 11/17/19 07:00 Chloride 110 mmol/L (98-107) H 11/17/19 07:00 Carbon Dioxide 27 mmol/L (21-32) 11/17/19 07:00 Anion Gap 6 MMOL/L (8-16) L 11/17/19 07:00 BUN 16.4 mg/dL (7-18) 11/17/19 07:00 Creatinine 1.5 mg/dL (0.55-1.3) H 11/17/19 07:00 Est GFR (CKD-EPI)AfAm 50.95 11/17/19 07:00 Est GFR (CKD-EPI)NonAf 43.96 11/17/19 07:00 Random Glucose 88 mg/dL (74-106) 11/17/19 07:00 Calcium 8.5 mg/dL (8.5-10.1) 11/17/19 07:00 Total Bilirubin 0.4 mg/dL (0.2-1) 11/17/19 07:00 AST 16 U/L (15-37) 11/17/19 07:00 ALT 18 U/L (13-61) 11/17/19 07:00 Alkaline Phosphatase 83 U/L (45-117) 11/17/19 07:00 Total Protein 6.5 g/dl (6.4-8.2) 11/17/19 07:00 Albumin 3.0 g/dl (3.4-5.0) L 11/17/19 07:00 RPR Titer Nonreactive (NONREACTIVE) 11/17/19 07:00 lab noted Assessment: 11/19/19 09:11 alcohol withdrawal Plan: librium regiment
[2019-11-19] MEDS: LISINOPRIL 10 MG TABLET (FP) PO SCH ×2 (10:03→22:03)
[2019-11-19] MEDS: amLODIPine BESYLATE 10 MG TABLET (FP) PO SCH (10:04)
[2019-11-19] MEDS: METOPROLOL TARTRATE 25 MG TABLET (FP) PO SCH (10:04)
[2019-11-19] MEDS: ARTIFICIAL TEARS (POLYVINYL ALCOHOL) OPTH DROPS OU SCH ×4 (10:05→22:02)
[2019-11-19] MEDS: PRENATAL VITAMINS W/ FOLIC ACID TABLET (FP) PO SCH (10:05)
[2019-11-19] MEDS: TAMSULOSIN HCL 0.4 MG CAP PO SCH (10:30)
[2019-11-19] MEDS: THIAMINE HCL 100 MG TABLET (FP) PO SCH (22:03)
[2019-11-20] MEDS: chlordiazePOXIDE HCL 10 MG CAPSULE PO SCH ×2 (06:23→17:52)
[2019-11-20] MEDS: TAMSULOSIN HCL 0.4 MG CAP PO SCH (09:22)
[2019-11-20] MEDS: LISINOPRIL 10 MG TABLET (FP) PO SCH ×2 (09:22→22:11)
[2019-11-20] MEDS: amLODIPine BESYLATE 10 MG TABLET (FP) PO SCH (09:22)
[2019-11-20] MEDS: PRENATAL VITAMINS W/ FOLIC ACID TABLET (FP) PO SCH (09:22)
[2019-11-20] MEDS: METOPROLOL TARTRATE 25 MG TABLET (FP) PO SCH (09:22)
[2019-11-20] MEDS: ARTIFICIAL TEARS (POLYVINYL ALCOHOL) OPTH DROPS OU SCH ×4 (09:23→22:11)
--- NOTE | 2019-11-20 13:14 | PN ---
[facility] CIWA - CIWA Score Nausea/Vomitin-No Nausea/No Vomiting Muscle Tremors: 1-None Visible, but [place] Anxiety: 0-No Anxiety, at Ease Agitation: 0-Normal Activity Paroxysmal Sweats: 1-Minimal Palms Moist Orientation: 0-Oriented Tacttile Disturbances: 0-None Auditory Disturbances: 0-None Visual Disturbances: 0-None Headache: 0-None Present CIWA-Ar Total Score: 2 S Progress Note (SOAP) Subjective: 79 years old male admitted on 11/17/19 for alcohol withdrawal sx management treating with librium detox regiment feeling better today patient requests to go to his proper to get "my own medication for my prostate" patient can not remember the name of the medication "I will if I do not take it" encourage the patient to investigate the name of the medication as per expense of the detox facility encourage the patient continue to take the medication as per discharge 11/21/19 Objective: 11/20/19 13:32 Vital Signs Temperature 96.5 F L 11/20/19 12:33 Pulse Rate 61 11/20/19 12:33 Respiratory Rate 18 11/20/19 12:33 Blood Pressure 134/71 11/20/19 12:33 O2 Sat by Pulse Oximetry (%) Laboratory Last Values WBC 6.2 K/mm3 (4.0-10.0) 11/17/19 07:00 RBC 4.36 M/mm3 (4.00-5.60) 11/17/19 07:00 Hgb 12.7 GM/dL (11.7-16.9) 11/17/19 07:00 Hct 38.0 % (35.4-49) 11/17/19 07:00 MCV 87.2 fl (80-96) 11/17/19 07:00 MCH 29.1 pg (25.7-33.7) 11/17/19 07:00 MCHC 33.4 g/dl (32.0-35.9) 11/17/19 07:00 RDW 14.4 % (11.9-15.9) 11/17/19 07:00 Plt Count 155 K/MM3 (134-434) 11/17/19 07:00 MPV 8.1 fl (7.5-11.1) 11/17/19 07:00 Sodium 142 mmol/L (136-145) 11/17/19 07:00 Potassium 4.5 mmol/L (3.5-5.1) 11/17/19 07:00 Chloride 110 mmol/L (98-107) H 11/17/19 07:00 Carbon Dioxide 27 mmol/L (21-32) 11/17/19 07:00 Anion Gap 6 MMOL/L (8-16) L 11/17/19 07:00 BUN 16.4 mg/dL (7-18) 11/17/19 07:00 Creatinine 1.5 mg/dL (0.55-1.3) H 11/17/19 07:00 Est GFR (CKD-EPI)AfAm 50.95 11/17/19 07:00 Est GFR (CKD-EPI)NonAf 43.96 11/17/19 07:00 Random Glucose 88 mg/dL (74-106) 11/17/19 07:00 Calcium 8.5 mg/dL (8.5-10.1) 11/17/19 07:00 Total Bilirubin 0.4 mg/dL (0.2-1) 11/17/19 07:00 AST 16 U/L (15-37) 11/17/19 07:00 ALT 18 U/L (13-61) 11/17/19 07:00 Alkaline Phosphatase 83 U/L (45-117) 11/17/19 07:00 Total Protein 6.5 g/dl (6.4-8.2) 11/17/19 07:00 Albumin 3.0 g/dl (3.4-5.0) L 11/17/19 07:00 RPR Titer Nonreactive (NONREACTIVE) 11/17/19 07:00 lab noted Assessment: 11/20/19 13:33 alcohol withdrawal Plan: librium regiment
[2019-11-20] MEDS: THIAMINE HCL 100 MG TABLET (FP) PO SCH (22:11)
[2019-11-21] MEDS ORDERED: chlordiazePOXIDE HCL 10 MG CAPSULE PO ONE (05:00)
--- NOTE | 2019-11-21 10:12 | DS ---
[facility] Detox Discharge Summary Admission Date: 11/16/19 Discharge Date: 11/21/19 - History Present History: Alcohol Dependence Additional Comments: 79 years old male admitted onm 11/17/19 for alcohol withdrawal sx management treated with librium detox regiment Mr Stewart has completed the librum regiment and tolerated well alert oriented x 3 respiratory clear lungs bilaterally on auscultation extremities full range of motion skin warm and dry Pertinent Past History: time for discharge 34 minutes - Physical Exam Results Vital Signs: Vital Signs Temperature 98.4 F 11/21/19 08:49 Pulse Rate 72 11/21/19 08:49 Respiratory Rate 18 11/21/19 08:49 Blood Pressure 140/68 11/21/19 08:49 O2 Sat by Pulse Oximetry (%) Pertinent Admission Physical Exam Findings: alcohol withdrawal Laboratory Last Values WBC 6.2 K/mm3 (4.0-10.0) 11/17/19 07:00 RBC 4.36 M/mm3 (4.00-5.60) 11/17/19 07:00 Hgb 12.7 GM/dL (11.7-16.9) 11/17/19 07:00 Hct 38.0 % (35.4-49) 11/17/19 07:00 MCV 87.2 fl (80-96) 11/17/19 07:00 MCH 29.1 pg (25.7-33.7) 11/17/19 07:00 MCHC 33.4 g/dl (32.0-35.9) 11/17/19 07:00 RDW 14.4 % (11.9-15.9) 11/17/19 07:00 Plt Count 155 K/MM3 (134-434) 11/17/19 07:00 MPV 8.1 fl (7.5-11.1) 11/17/19 07:00 Sodium 142 mmol/L (136-145) 11/17/19 07:00 Potassium 4.5 mmol/L (3.5-5.1) 11/17/19 07:00 Chloride 110 mmol/L (98-107) H 11/17/19 07:00 Carbon Dioxide 27 mmol/L (21-32) 11/17/19 07:00 Anion Gap 6 MMOL/L (8-16) L 11/17/19 07:00 BUN 16.4 mg/dL (7-18) 11/17/19 07:00 Creatinine 1.5 mg/dL (0.55-1.3) H 11/17/19 07:00 Est GFR (CKD-EPI)AfAm 50.95 11/17/19 07:00 Est GFR (CKD-EPI)NonAf 43.96 11/17/19 07:00 Random Glucose 88 mg/dL (74-106) 11/17/19 07:00 Calcium 8.5 mg/dL (8.5-10.1) 11/17/19 07:00 Total Bilirubin 0.4 mg/dL (0.2-1) 11/17/19 07:00 AST 16 U/L (15-37) 11/17/19 07:00 ALT 18 U/L (13-61) 11/17/19 07:00 Alkaline Phosphatase 83 U/L (45-117) 11/17/19 07:00 Total Protein 6.5 g/dl (6.4-8.2) 11/17/19 07:00 Albumin 3.0 g/dl (3.4-5.0) L 11/17/19 07:00 RPR Titer Nonreactive (NONREACTIVE) 11/17/19 07:00 lab noted - Treatment Hospital Course: Detox Protocol Followed, Detoxed Safely, Responded well, Discharged Condition Good, Rehab Referral Accepted Patient [facility] Accept[facility] - Medication Discharge Medications: Ambulatory Orders Amlodipine Besylate [Norvasc -] 10 mg PO DAILY 14 Days #14 tablet 07/08/19 Lisinopril 10 mg PO BID #30 tablet 08/27/19 Metoprolol Tartrate 25 mg PO DAILY #14 tablet 08/27/19 Tamsulosin HCl [Flomax] 0.4 mg PO DAILY #14 capsule 08/27/19 - Diagnosis (1) Alcohol dependence with uncomplicated withdrawal Current Visit: Yes Status: Acute (2) BPH (benign prostatic hyperplasia) Current Visit: Yes Status: Chronic Qualifiers: Lower urinary tract symptom presence: symptoms absent Qualified Code(s): N40.0 - Benign prostatic hyperplasia without lower urinary tract symptoms (3) Essential hypertension Current Visit: Yes Status: Chronic (4) Positive PPD Current Visit: Yes Status: Resolved - AMA Did Patient Leave Against Medical Advice: No CIWA Score - CIWA Score Nausea/Vomitin-No Nausea/No Vomiting Muscle Tremors: 1-None Visible, but [place] Anxiety: 0-No Anxiety, at Ease Agitation: 0-Normal Activity Paroxysmal Sweats: No Perspiration Orientation: 0-Oriented Tacttile Disturbances: 0-None Auditory Disturbances: 0-None Visual Disturbances: 0-None Headache: 0-None Present CIWA-Ar Total Score: 1
[2019-11-21] MEDS: TAMSULOSIN HCL 0.4 MG CAP PO SCH (10:24)
[2019-11-21] MEDS: METOPROLOL TARTRATE 25 MG TABLET (FP) PO SCH (10:24)
[2019-11-21] MEDS: amLODIPine BESYLATE 10 MG TABLET (FP) PO SCH (10:24)
[2019-11-21] MEDS: LISINOPRIL 10 MG TABLET (FP) PO SCH (10:24)
[2019-11-21] MEDS: PRENATAL VITAMINS W/ FOLIC ACID TABLET (FP) PO SCH (10:24)
[2019-11-21] MEDS: ARTIFICIAL TEARS (POLYVINYL ALCOHOL) OPTH DROPS OU SCH ×3 (10:25→18:43)
[2019-11-21 18:14] VITALS: BP 128/70; PULSE 69; TEMP 98.4
== END 2019-11-21 18:50 | disposition other institution (70) | DRG 897 ==
LOC: YASAS 12:19 → Y3N 15:32
PROVIDERS: ADMIT Allergy & Immunology; ATTEND Allergy & Immunology
PROC: HZ2ZZZZ Detoxification Services for Substance Abuse Treatment (ICD-10-PCS; principal; 2019-11-16)
DX: F10.230 Alcohol dependence with withdrawal, uncomplicated (principal); I10 Essential (primary) hypertension; N40.0 Benign prostatic hyperplasia without lower urinary tract symptoms; R76.11 Nonspecific reaction to tuberculin skin test without active tuberculosis; R55 Syncope and collapse; Z87.828 Personal history of other (healed) physical injury and trauma; Z98.890 Other specified postprocedural states
CPT/HCPCS: 36415; 80053; 85027; 86593